=== PATIENT | female | born 1990 | race Caucasian/White ===

== ENCOUNTER 2020-01-30 11:14 | Emergency (ER) | payer OTHER, SELFPAY ==
[2020-01-30 11:30] VITALS: BP 117/72; PULSE 77; RESP 16; TEMP 37; O2SAT 98; BMI 43.4
--- NOTE | 2020-01-30 11:55 | ED.ALLEREA ---
HPI - Allergic Reaction General Chief complaint: Allergic Reaction Stated complaint: Hives Time Seen by Provider: 01/30/20 11:55 Source: patient Mode of arrival: ambulatory Limitations: no limitations History of Present Illness HPI narrative: 29 y/o female presenting with intermittent hives all over her body for the last 7-10 days. She has been taking benadryl with good effect. She states it is worse after a hot shower and worse after she wears certain clothing. She denies any respiratory symptoms. She took Benadryl for hives on her chest this morning and arrives today with complete resolution. complaint: hives Onset (ago): hour(s) Exposure: unknown Symptoms: rash and itching Severity: moderate Treatment prior to arrival: benadryl Previous Allergic Reaction History: other (history of hives in the past ) Related Data Previous Rx's Medication Instructions Recorded famotidine [Pepcid] 20 mg PO DAILY #30 tab 01/30/20 loratadine [Claritin] 10 mg PO DAILY #30 tab 01/30/20 Allergies Allergy/AdvReac Type Severity Reaction Status Date / Time cat dander [CAT DANDER] Allergy Intermediate ITCHY Unverified 12/14/19 15:51 WATERY EYES dog dander [DOGS] Allergy Intermediate ITCHY Unverified 12/14/19 15:51 WATERY EYES GRASS Allergy Intermediate ITCHY, Uncoded 12/14/19 15:51 HIVES Review of Systems Review of Systems: Constitutional: No Fever, No Chills ENT/Mouth: No sore throat, No Rhinorrhea, No Swallowing Difficulty Eyes: No Eye Pain, No Swelling, No Redness Cardiovascular: No Chest Pain, No SOB, No Orthopnea, No Edema Respiratory: No Cough, No Sputum, No Wheezing, No dyspnea Gastrointestinal: No Nausea, No Vomiting, No Diarrhea, No abdominal Pain Genitourinary: No Dysuria, No Urinary Frequency, No Hematuria Musculoskeletal: No joint pain, No Myalgias Skin: No Skin Lesions, + rash Neuro: No Weakness, No Numbness, No Dizziness, No Headache Psych: + Anxiety/Panic, No Depression Heme/Lymph: No Bruising, No Lymphadenopathy Endocrine: No Polyuria, No Polydipsia PMFSH Past Medical History Attestation statement: The following information was validated with the patient. Medical History Asthma H/O eye muscle disorder Post depression Surgical History (Updated 01/30/20 @ 11:35 by Shellie Armendariz) Hx of breast reduction, elective Hx of tonsillectomy Social History Social History Advance Directives: No Advance Directives Information Provided: No Physical Exam Vital Signs: Vital Signs: Vital Signs Temp Pulse Resp BP Pulse Ox 01/30/20 11:30 98.6 F 77 16 117/72 98 Body Mass Index 43.4 Appearance: Alert. Oriented X3. No acute distress. Eyes: Pupils equal, round and reactive to light. ENT: Pharynx normal. Lips and mouth normal. Neck: Normal inspection. Neck supple. CVS: Normal heart rate and rhythm. Pulses normal. Respiratory: No respiratory distress. Breath sounds normal. Abdomen: Soft and nontender. +BS x4 Skin: Skin warm and dry. Normal skin color. Normal skin turgor. No rashes. No hives. Extremities: No lower extremity edema. Neuro: Oriented X 3. No motor deficit. No sensory deficit. Course Course Course Narrative: completely resolved hives on arrival. she is taking benadryl with good effect. no angioedema or SOB. she has an appointment with information assurance officer and director of federal sales. will empirically start treatment for chronic urticaria with H2 virgie and 2nd generation antihystamine. patient agrees with plan and will f/u with her specialist. warning signs discussed to warrant ER evaluation. MDM - Allergic Reaction Differential Diagnosis Differential diagnosis: Likely anaphylaxis, allergic reaction, angioedema, contact dermatitis, adverse reaction to drug, viral enanthem and urticaria Critical Care Time Critical Care Time Critical Care Time: No Discharge Plan Discharge Clinical Impression: Urticaria Patient Disposition: Home, Self-Care Instructions: Urticaria (ED) Additional Instructions: Continue taking Benadryl as needed for rash and itching. Do not use any soaps, detergents, or lotions with perfume or scent. Recommend hypoallergic formulas. Follow up with your Raftsman and Cardiac Catheterization Technician as scheduled. If you develop shortness of breath, wheezing, difficulty breathing or swelling of your tongue or mouth call 911 or come back to the ER for further evaluation. Prescriptions: New loratadine [Claritin] 10 mg tablet 10 mg PO DAILY Qty: 30 RF: 0 famotidine [Pepcid] 20 mg tablet 20 mg PO DAILY Qty: 30 RF: 0
== END 2020-01-30 12:05 | disposition home or self-care (01) ==
PROVIDERS: Emergency Provider Emergency Medicine; PCP Nurse Practitioner
DX: L50.9 Urticaria, unspecified (principal); Z79.899 Other long term (current) drug therapy
CPT/HCPCS: 99283

== ENCOUNTER 2021-06-07 10:11 | Emergency (ER) | payer OTHER, SELFPAY ==
--- NOTE | ~2021-06-07 | XR_ITS ---
EXAMINATION: XR LUMBOSACRAL SPINE CLINICAL INFORMATION: Lifting pain. COMPARISON: CT abdomen pelvis 10/18/2014. TECHNIQUE: Three views of the lumbosacral spine. FINDINGS: 5 lumbar type vertebral bodies are identified. Vertebral body height, spacing and alignment are normal in appearance. Mild intervertebral disc space narrowing and endplate discogenic sclerotic changes are present adjacent to the T11-T12 intervertebral disc space. The sacroiliac joints are normal in appearance. Scattered bowel gas noted in nondistended small and large bowel segments. XR/XR lumbar spine 2-3V IMPRESSION: *No acute abnormalities identified. *Chronic spondylosis at T11-T12 characterized by intervertebral disc space narrowing and endplate discogenic changes.
[2021-06-07 10:26] VITALS: BP 110/60; BP 144/88; PULSE 69; PULSE 88; RESP 16; TEMP 36.9; O2SAT 98; BMI 41.7
[2021-06-07] MEDS: Ketorolac Tromethamine 30 MG/ML VIAL IM (10:40)
[2021-06-07] MEDS: Acetaminophen 325 MG TABLET 650 MG PO (10:42)
[2021-06-07] MEDS: Cyclobenzaprine HCl 5 MG TABLET PO (10:42)
[2021-06-07] MEDS: oxyCODONE HCl Immed Release 5 MG TABLET PO (10:42)
[2021-06-07] MEDS: Lidocaine 4 % Patch ADH..PATCH 1 PATCH TRANSDERMA (11:49)
--- NOTE | 2021-06-07 12:28 | ED_ITS ---
HPI - General Adult General Chief complaint: Back Pain/Injury Stated complaint: BACK PAIN S/P LIFTING HEAVY OBJECT T-1 Time Seen by Provider: 06/07/21 10:17 Source: patient Mode of arrival: ambulatory History of Present Illness HPI narrative: 30-year-old female with a past medical history of asthma, presenting to the ED complaining of left-sided low back pain radiating down left lower extremity s/p lifting a package last night. Denies direct injury/trauma or fall, was ambulatory after incident however pain worsened this morning with difficulty ambulating from pain. States she tried to urinate this morning however could not pee secondary to the pain. Denies numbness, tingling, urinary incontinence/retention, weakness Related Data Previous Rx's Medication Instructions Recorded famotidine 20 mg tablet (Pepcid) 20 mg PO DAILY #30 tab 01/30/20 loratadine 10 mg tablet (Claritin) 10 mg PO DAILY #30 tab 01/30/20 cyclobenzaprine 5 mg tablet 5 mg PO Q8H PRN 5 Days #14 tab 06/07/21 hydrocodone 5 mg-acetaminophen 325 1 tab PO Q8H PRN 3 Days #7 tab 06/07/21 mg tablet lidocaine 5 % topical patch 1 patch TOPICAL DAILY PRN #30 ea 06/07/21 (Lidoderm) MDD remove after 12 hours naproxen 500 mg tablet 500 mg PO BID PRN 10 Days #20 tab 06/07/21 Allergies Allergy/AdvReac Type Severity Reaction Status Date / Time cat dander [CAT DANDER] Allergy Intermediate ITCHY Unverified 09/17/20 07:41 WATERY EYES dog dander [DOGS] Allergy Intermediate ITCHY Unverified 09/17/20 07:41 WATERY EYES GRASS Allergy Intermediate ITCHY, Uncoded 09/17/20 07:41 HIVES Review of Systems Review of Systems: Constitutional:No Fever, No Chills ENT/Mouth: No Ear Pain, No Nasal Congestion, No sore throat Cardiovascular: No Chest Pain, No SOB Respiratory: No Cough, No Sputum, No Wheezing Gastrointestinal: No Nausea, No Vomiting, No Diarrhea, No Constipation, No Abdominal pain Genitourinary: No Dysuria, No Hematuria, No Urinary Incontinence/retention, No Urgency, No Flank Pain Musculoskeletal: + back pain, No Myalgias, No Joint Swelling Skin: No Skin Lesions, No rash Neuro: No Weakness, No Numbness, No Paresthesias Yes all other systems are reviewed and are negative Neurologic: Denies Sensory deficit (Neuro) [facility] Past Medical History Attestation statement: The following information was validated with the patient. Medical History Asthma H/O eye muscle disorder Post depression Surgical History Hx of breast reduction, elective Hx of tonsillectomy Social History Social History Advance Directives: No Advance Directives Information Provided: No Patient : No Physical Exam ED Vital Signs: Vital Signs - 24 hr 06/07/21 10:26 Temperature 98.4 F Pulse Rate 69 Respiratory Rate 16 Blood Pressure 110/60 Pulse Oximetry 98 BMI result Body Mass Index 41.7 Const Other: in pain General: cooperative and healthy appearing Orientation/consciousness: patient oriented x3 Limitations: no limitations HENMT Head: Yes normal to inspection Ears: hearing grossly normal bilaterally General nose exam: Normal external nose present Face and sinus: Yes normal facial exam Eyes General: appearance normal, both eyes and all related structures EOM: EOMs intact bilaterally Neck Other: No midline cervical spinous tenderness/double for deformity Neck: Yes normal visual inspection Resp Effort & Inspection: normal respiratory effort and no respiratory distress Cardio Rate: regular rate Heart sounds: S1 normal heart sound present and S2 normal heart sound present Peripheral pulses: dorsalis pedis present GI Inspection: Yes normal to inspection Palpation (GI): Soft to palpation, nontender and no guarding General: Yes no CVA tenderness Back/Spine/Pelvis Other: No midline thoracic/lumbar spinous tenderness/step-off or deformity. + left- sided paraspinal and left buttock tenderness to palpation reproducing subjective complaint. No erythema/ecchymosis Back: no CVA tenderness Skin Rashes: no rashes Wounds: no wounds Neuro Other: Strength intact throughout. No saddle anesthesia. General: patient oriented x3, tone normal, moves all extremities and no focal motor deficits Motor exam (neuro): 5/5 motor strength present throughout Sensory Exam: No Sensory deficit (Neuro) Extrem General: Yes normal to inspection Course Course Course Narrative: XR lumbar spine 2-3V IMPRESSION: *No acute abnormalities identified. *Chronic spondylosis at T11-T12 characterized by intervertebral disc space narrowing and endplate discogenic changes 1229--results discussed with patient. Reports symptomatic improvement after medications given in the ED. Obtain bladder scan and ambulate prior to discharge -pre void bladder scan with 407mL -postvoid residual with 3mL. Patient ambulated to the bathroom with steady slow gait. Discussed worrisome signs and symptoms and strict return precautions and need close follow-up with PCP Medical Decision Making MDM Narrative Medical decision making narrative: 30-year-old female with a past medical history of asthma, presenting to the ED complaining of left-sided low back pain radiating down left lower extremity s/p lifting a package last night. On exam vital signs stable, appears in pain, tearful, no midline spinous tenderness throughout, no red flag symptoms, strength intact throughout. Concern for MSK strain/muscle spasming vs sciatica. Low concern for cauda equina/cord compression or fracture Plan: X-rays, pain control Medical Records Medical records reviewed: Yes I reviewed the patient's medical records. Lab Data Lab results reviewed: Yes I reviewed the patient's lab results. Discharge Plan Discharge Clinical Impression: Strain of lumbar region, Lumbar radiculopathy Patient Disposition: Home, Self-Care Instructions: Acute Low Back Pain (ED), Lower Back Exercises (ED) Additional Instructions: Your x-rays show mild joint space narrowing at T11 and T12, no fractures. Your pain is likely musculoskeletal Flexeril is a muscle relaxer, take at night as it makes you drowsy, do not drive, drink alcohol, or operate machinery while taking it Naproxen as an anti-inflammatory / pain medication, take with food Lidoderm patches are numbing patches, apply to painful area Sweet Water is no opiate pain medication, take only when pain is severe for the next 3 days. Be aware Sweet Water has Tylenol mixed in, do not exceed 4 g of Tylenol in 1 day In addition take Tylenol at home If symptoms persist or worsen, pain becomes unbearable, you developed urinary retention or incontinence, or weakness return to the ED Prescriptions: New hydrocodone-acetaminophen 5-325 mg tablet 1 tab PO Q8H PRN (Reason: pain, severe) 3 Days Qty: 7 0RF cyclobenzaprine 5 mg tablet 5 mg PO Q8H PRN (Reason: pain (scale score 7-10)) 5 Days Qty: 14 0RF lidocaine [Lidoderm] 5 % adhesive patch,medicated 1 patch topical DAILY MDD remove after 12 hours PRN (Reason: pain) Qty: 30 0RF Rx Instructions: leave on most painful area for up to 12 hrs naproxen 500 mg tablet 500 mg PO BID PRN (Reason: pain) 10 Days Qty: 20 0RF No Action loratadine [Claritin] 10 mg tablet 10 mg PO DAILY Qty: 30 0RF famotidine [Pepcid] 20 mg tablet 20 mg PO DAILY Qty: 30 0RF Referrals: Teena Donovan NP [Primary Care Provider] - 3 days
== END 2021-06-07 14:10 | disposition home or self-care (01) ==
PROVIDERS: Emergency Provider Emergency Medicine; PCP Nurse Practitioner
DX: S39.012A Strain of muscle, fascia and tendon of lower back, initial encounter (principal); X50.0XXA Overexertion from strenuous movement or load, initial encounter; M54.16 Radiculopathy, lumbar region; Y93.89 Activity, other specified; Y92.019 Unspecified place in single-family (private) house as the place of occurrence of the external cause; Y99.9 Unspecified external cause status
CPT/HCPCS: 72100; 96372; 99283; 99284; J1885

== ENCOUNTER 2021-08-06 09:31 | Emergency (ER) | payer MEDICAID, SELFPAY ==
--- NOTE | ~2021-08-06 | XR_ITS ---
EXAMINATION: XR KNEE, RIGHT CLINICAL INFORMATION: Right knee pain. COMPARISON: None TECHNIQUE: Four views of the right knee. FINDINGS: Bones and soft tissues are normal. No fracture or joint effusion. Alignment is anatomic. Joint spaces are well maintained. No abnormal soft tissue calcification. XR/XR knee RT 4V IMPRESSION: Unremarkable right knee.
[2021-08-06 10:02] VITALS: BP 129/63; PULSE 78; RESP 16; TEMP 36; O2SAT 99; BMI 40.8
--- NOTE | 2021-08-06 11:58 | ED.SKABFB ---
HPI - Skin/Abscess/Foreign Bdy General Chief complaint: General Medical Stated complaint: boil inner thigh r knee pain Time Seen by Provider: 08/06/21 11:16 Source: patient Mode of arrival: ambulatory Limitations: no limitations History of Present Illness HPI narrative: Patient presents to the emergency department for evaluation of a boil to her left upper inner thigh. she reports first noting this about 1 week ago after taking a spin class, but the area has become increasingly painful, swollen, and red. Denies any active drainage from this area. Denies any fevers, shakes and chills, dysuria, urinary frequency, abnormal vaginal discharge, concerns for sexually transmitted infections, constipation, diarrhea. In addition, she reports that she is experiencing mild right knee discomfort since taking that spin class. Denies any locking, popping, or giving out of her knee. Denies any redness, swelling, warmth. She is able to walk and bear weight, has an elastic brace in place Which helps with her discomfort. Related Data Previous Rx's Medication Instructions Recorded famotidine 20 mg tablet (Pepcid) 20 mg PO DAILY #30 tab 01/30/20 loratadine 10 mg tablet (Claritin) 10 mg PO DAILY #30 tab 01/30/20 cyclobenzaprine 5 mg tablet 5 mg PO Q8H PRN 5 Days #14 tab 06/07/21 hydrocodone 5 mg-acetaminophen 325 1 tab PO Q8H PRN 3 Days #7 tab 06/07/21 mg tablet lidocaine 5 % topical patch 1 patch TOPICAL DAILY PRN #30 ea 06/07/21 (Lidoderm) MDD remove after 12 hours naproxen 500 mg tablet 500 mg PO BID PRN 10 Days #20 tab 06/07/21 cephalexin 500 mg capsule 500 mg PO QID 7 Days #28 cap 08/06/21 doxycycline hyclate 100 mg tablet 100 mg PO BID 7 Days #14 tab 08/06/21 Allergies Allergy/AdvReac Type Severity Reaction Status Date / Time cat dander [CAT DANDER] Allergy Intermediate ITCHY Verified 08/06/21 10:01 WATERY EYES dog dander [DOGS] Allergy Intermediate ITCHY Verified 08/06/21 10:01 WATERY EYES GRASS Allergy Intermediate ITCHY, Uncoded 09/17/20 07:41 HIVES Review of Systems Review of Systems: Constitutional: No weight loss, fever, chills, weakness or fatigue. Skin: Positive cyst Cardiovascular: No chest pain, chest pressure or chest discomfort. No palpitations Respiratory: No shortness of breath, cough or sputum production. Gastrointestinal: No anorexia, nausea, vomiting or diarrhea. No abdominal pain Genitourinary: No burning micturition. Musculoskeletal: Positive knee pain Yes all other systems are reviewed and are negative [facility] Past Medical History Medical History Asthma H/O eye muscle disorder Post depression Surgical History Hx of breast reduction, elective Hx of tonsillectomy Social History Social History Advance Directives: No Advance Directives Information Provided: Yes Physical Exam Vital Signs: Vital Signs: Last Vital Signs Temp 96.8 F 08/06/21 10:02 Pulse 78 08/06/21 10:02 Resp 16 08/06/21 10:02 BP 129/63 08/06/21 10:02 Pulse Ox 99 08/06/21 10:02 BMI result Body Mass Index 40.8 Vital signs have been reviewed as normal and appeared to be correct. Blood pressure normal.? Heart rate normal.? Respiration rate normal. Temperature normal.? Oxygen saturation normal. Appearance: Alert.?Oriented to person, place and time. No acute distress.?Normal affect. Eyes: Pupils equal, round and reactive to light.? ENT: Pharynx normal.?? Neck: Normal inspection.? Neck supple.?? CVS: Heart sounds normal. Normal heart rate and rhythm.? Pulses normal.?? Respiratory: No respiratory distress.? Lung sounds clear to auscultation bilaterally?? Abdomen: Soft and non-tender. Skin: Right perineum with palpable abscess and surrounding erythema. Skin warm and dry.? Normal skin color.? Extremities: Right knee without erythema, warmth, swelling/effusion. Full AROM. Palpable DP/PT pulse bilaterally. Anterior drawer test negative. Posterior drawer test negative. Valgus stress test negative. Varus stress test negative. No laxity. No crepitus. No calf ttp? Neuro: Moves all extremities spontaneously. Sensation intact bilaterally. Motor deficit. Ambulates with normal steady gait. Course Course Course Narrative: Patient is a 30-year-old female with past medical history of GERD, allergic rhinitis. Presenting for evaluation of a abscess to the left buttock and right knee pain. Right perineum inferior to the labia majora and lateral to the vaginal canal/ buttock is a palpable fluctuance consistent with abscess, and mild surrounding erythema. discussed plan of care with patient for incision and drainage. She is agreeable. Not consistent with perirectal / perianal abscess, or fourniers gangrene. X-ray obtained from triage of the right knee is unremarkable, no fracture or joint effusion. On physical exam not consistent with cellulitis, sepric arthritis, or dislocation. No laxity or crepitus. Advised patient cannot completely exclude ligamentous or meniscus injury as x-ray imaging is not due for modality for all other. Advised to continue wearing the compression brace, rest, ice, and elevation, or dense of aggravating activity, Tylenol or ibuprofen as needed for pain. If her knee pain persists, advised to follow-up with her primary care provider for further evaluation. Reevaluation(s) Reevaluation #1: Performed incision and drainage under aseptic technique, patient tolerated procedure well, small amount of purulent drainage, and blood removed. Patient tolerated procedure well. Discussed plan of care for discharge home, with doxycycline and Keflex. Advised to follow-up with primary care provider in 1 week. Discussed reasons to return back to the emergency department. All questions were answered. Time: 13:08 MDM - Skin/Abscess/Foreign Bdy Medical Records Attestation: I reviewed the patient's medical records. Imaging Data knee XR: Radiologist's impression: FINDINGS: Bones and soft tissues are normal. No fracture or joint effusion. Alignment is anatomic. Joint spaces are well maintained. No abnormal soft tissue calcification.? XR/XR knee RT 4V IMPRESSION: Unremarkable right knee. Procedures Abscess I/D Site: other ( Perineum inferior to labia majora, lateral to vagina) Side (if applicable): right Local Anesthetic: lidocaine 1% Amount of anesthesia used (mL): 10 Technique: incised with blade Irrigation: Yes Packing used?: none Discharge Plan Discharge Clinical Impression: Abscess, Acute knee pain Patient Disposition: Home, Self-Care Instructions: Abscess (ED), Incision and Drainage (ED) Additional Instructions: you have been given a course of antibiotics, please complete both antibiotics as prescribed. Return to the emergency department any new or worsening symptoms or concerns. If you develop fevers, shaking chills, severe worsening pain, swelling, redness please return back to the emergency department for evaluation. May continue to have some drainage over the next few days, this is expected. follow-up with her primary care provider within 1 week Regarding your knee, be sure to rest, apply ice, use compression brace, and elevation when possible. Tylenol and ibuprofen may be used as needed for pain. Avoid aggravating factors. You may follow-up with your primary care provider if the pain persists. Prescriptions: New cephalexin 500 mg capsule 500 mg PO QID 7 Days Qty: 28 0RF doxycycline hyclate 100 mg tablet 100 mg PO BID 7 Days Qty: 14 0RF No Action loratadine [Claritin] 10 mg tablet 10 mg PO DAILY Qty: 30 0RF famotidine [Pepcid] 20 mg tablet 20 mg PO DAILY Qty: 30 0RF hydrocodone-acetaminophen 5-325 mg tablet 1 tab PO Q8H PRN (Reason: pain, severe) 3 Days Qty: 7 0RF cyclobenzaprine 5 mg tablet 5 mg PO Q8H PRN (Reason: pain (scale score 7-10)) 5 Days Qty: 14 0RF lidocaine [Lidoderm] 5 % adhesive patch,medicated 1 patch topical DAILY MDD remove after 12 hours PRN (Reason: pain) Qty: 30 0RF Rx Instructions: leave on most painful area for up to 12 hrs naproxen 500 mg tablet 500 mg PO BID PRN (Reason: pain) 10 Days Qty: 20 0RF Interventions: ED Discharge Assessment Last Done: 08/06/21 13:34 Discharge Date/Time: 08/06/21 13:36
[2021-08-06] MEDS: Lidocaine HCl 2 % MPF 5 ML VIAL SUBCUT ×2 (12:01)
== END 2021-08-06 13:36 | disposition home or self-care (01) ==
PROVIDERS: Emergency Provider Emergency Medicine; PCP Nurse Practitioner
DX: L02.415 Cutaneous abscess of right lower limb (principal); K21.9 Gastro-esophageal reflux disease without esophagitis
CPT/HCPCS: 10060; 73564; 99283; 99284

== ENCOUNTER 2021-09-30 10:24 | Emergency (ER) | payer MEDICAID, SELFPAY ==
[2021-09-30 11:31] VITALS: BP 109/41; PULSE 71; RESP 16; TEMP 36.4; O2SAT 98; BMI 40.2
--- NOTE | 2021-09-30 11:50 | ED.URI ---
HPI - URI/Sore Throat General Chief Complaint: General Medical Stated Complaint: throat pain, headache Time Seen by Provider: 09/30/21 11:17 Source: patient Mode of arrival: ambulatory Limitations: no limitations History of Present Illness MD elicited complaint: cough, sore throat and rhinorrhea Pertinent past history: other (tonsillectomy) Onset (ago): day(s) (2) Consistency: progressively worsening Severity: moderate Description of mucous: clear Able to tolerate fluids by mouth: Yes Exacerbating factors: swallowing Relieving factors: nothing Associated symptoms: headache, rhinorrhea, sore throat and cough Treatments prior to arrival: none Related Data Previous Rx's Medication Instructions Recorded famotidine 20 mg tablet (Pepcid) 20 mg PO DAILY #30 tabs 01/30/20 loratadine 10 mg tablet (Claritin) 10 mg PO DAILY #30 tabs 01/30/20 cyclobenzaprine 5 mg tablet 5 mg PO Q8H PRN pain (scale score 06/07/21 7-10) 5 days #14 tabs hydrocodone 5 mg-acetaminophen 325 1 tab PO Q8H PRN pain, severe 3 06/07/21 mg tablet days #7 tabs lidocaine 5 % topical patch 1 patch topical DAILY PRN pain #30 06/07/21 (Lidoderm) ea naproxen 500 mg tablet 500 mg PO BID PRN pain 10 days #20 06/07/21 tabs cephalexin 500 mg capsule 500 mg PO QID 7 days #28 caps 08/06/21 doxycycline hyclate 100 mg tablet 100 mg PO BID 7 days #14 tabs 08/06/21 amoxicillin 500 mg capsule 500 mg PO BID 7 days #14 caps 09/30/21 Allergies Allergy/AdvReac Type Severity Reaction Status Date / Time cat dander [CAT DANDER] Allergy Intermediate ITCHY Verified 09/30/21 11:36 WATERY EYES dog dander [DOGS] Allergy Intermediate ITCHY Verified 09/30/21 11:36 WATERY EYES GRASS Allergy Intermediate ITCHY, Uncoded 09/30/21 11:36 HIVES Review of Systems Review of Systems: Constitutional : no Fever, no Chills ENT/Mouth : positive sore throat, positive runny nose Eyes: No Discharge Cardiovascular : No Chest Pain, No SOB Respiratory : pos Cough, No Sputum Gastrointestinal : No Nausea, No Vomiting, No Diarrhea Genitourinary : No Dysuria, No Urinary Frequency Musculoskeletal : positive Myalgia Skin : No rash Neuro : pos Headache Heme: pos lymphadenopathy PMFSH Past Medical History Medical History Asthma H/O eye muscle disorder Post depression Surgical History Hx of breast reduction, elective Hx of tonsillectomy Social History Social History (Updated 09/30/21 @ 12:01 by Angeles Trejo DO) Patient Tobacco Use Status: Never used Tobacco Advance Directives: No Advance Directives Information Provided: Yes Physical Exam Vital Signs: Vital Signs: Last Vital Signs Temp 97.6 F 09/30/21 11:31 Pulse 71 09/30/21 11:31 Resp 16 09/30/21 11:31 BP 109/41 L 09/30/21 11:31 Pulse Ox 98 09/30/21 11:31 O2 Del Method 09/30/21 11:31 BMI result Body Mass Index 40.2 Appearance: Alert. Oriented X3. No acute distress. Eyes: Pupils equal, round and reactive to light. ENT: Pharynx mild erythema, no tonsils, no white patches, no mass Neck: Neck supple, bilateral small anterior cervical lymphadenopathy CVS: Normal heart rate and rhythm. Pulses normal. Respiratory: No respiratory distress. Breath sounds normal. Abdomen: Soft and non-tender. Skin: Skin warm and dry. Normal skin color. Extremities: No lower extremity edema. Neuro: Oriented X 3. No motor deficit. No sensory deficit. MDM - URI/Sore Throat MDM Narrative Medical decision making narrative: 31 yo female with hx of asthma reports cough, rhinorrhea, sore throat for 2 days, hx of tonsillectomy but states this feels like sore throat to her. At this time not toxic, no sign of mass in the airway. Will obtain swabs for COVID/flu/strep. Likely start on treatment for pharyngitis. Lab Data Labs: Lab Results 09/30/21 09/30/21 09/30/21 Range/Units 11:38 11:38 11:38 COVID-19 ([facility]) Negative (Negative) COVID-19 Clin Com See Note Influenza Type A ([facility]INA) Negative (Negative) Influenza Type B (BRIAN) Negative (Negative) Influenza A & B Note See Note S. pyogenes GrpA BRIAN Negative (Negative) Discharge Plan Discharge Clinical Impression: Pharyngitis Qualifiers: Pharyngitis/tonsillitis etiology: unspecified etiology Qualified Code(s): J02.9 - Acute pharyngitis, unspecified Patient Disposition: Home, Self-Care Instructions: Pharyngitis (ED) Additional Instructions: return to ED for any worsening symptoms or concerns negative for covid, flu, strep Prescriptions: New amoxicillin 500 mg capsule 500 mg PO BID 7 Days Qty: 14 0RF No Action loratadine [Claritin] 10 mg tablet 10 mg PO DAILY Qty: 30 0RF famotidine [Pepcid] 20 mg tablet 20 mg PO DAILY Qty: 30 0RF hydrocodone-acetaminophen 5-325 mg tablet 1 tab PO Q8H PRN (Reason: pain, severe) 3 Days Qty: 7 0RF cyclobenzaprine 5 mg tablet 5 mg PO Q8H PRN (Reason: pain (scale score 7-10)) 5 Days Qty: 14 0RF lidocaine [Lidoderm] 5 % adhesive patch,medicated 1 patch topical DAILY MDD remove after 12 hours PRN (Reason: pain) Qty: 30 0RF Rx Instructions: leave on most painful area for up to 12 hrs naproxen 500 mg tablet 500 mg PO BID PRN (Reason: pain) 10 Days Qty: 20 0RF cephalexin 500 mg capsule 500 mg PO QID 7 Days Qty: 28 0RF doxycycline hyclate 100 mg tablet 100 mg PO BID 7 Days Qty: 14 0RF Referrals: Physician,Unknown J [Primary Care Provider] - (PCP if not better in 2 days) Stand Alone Forms: Work/School Release
[2021-09-30 12:02] LABS: Strep A Nucleic Acid Negative (Negative)
[2021-09-30 12:06] LABS: COVID-19 Test Negative (Negative); IDNOW Serial# 08D9AD1C
[2021-09-30 12:13] LABS: IDNOW Serial# 16C4AD1C; Influenza A Negative (Negative); Influenza B2 Negative (Negative)
== END 2021-09-30 12:39 | disposition home or self-care (01) ==
PROVIDERS: Emergency Provider Emergency Medicine
DX: J02.9 Acute pharyngitis, unspecified (principal); R51.9 Headache, unspecified; Z79.899 Other long term (current) drug therapy; Z20.822 Contact with and (suspected) exposure to COVID-19
CPT/HCPCS: 87502; 87635; 87651; 99283

== ENCOUNTER 2021-12-01 09:03 | Emergency (ER) | payer MEDICAID, SELFPAY ==
[2021-12-01 09:05] VITALS: BP 106/58; PULSE 88; RESP 16; TEMP 36.8; O2SAT 99; BMI 40.2
[2021-12-01] MEDS: Erythromycin Base 0.5% Oph Oin 1 GM TUBE 1 CM EYE-RIGHT (09:32)
[2021-12-01] MEDS: Tetracaine HCl/PF 0.5% Oph Sol 4 ML DROPS 3 DROP EYE-RIGHT (09:32)
[2021-12-01] MEDS: Fluorescein Sodium STRIP 1 STRIP EYE-RIGHT (09:32)
--- NOTE | 2021-12-01 09:33 | ED_ITS ---
HPI - Eye Problem General Chief complaint: Eye Problems Stated complaint: Crazy glue splashed in eye Time Seen by Provider: 12/01/21 09:11 Source: patient Mode of arrival: ambulatory Limitations: no limitations History of Present Illness HPI Narrative: Patient presents emergency department for evaluation of glue to the right eye. She states last night while attempting to apply crazy glue to her nail the glue squirted out of the container, and she believes some of the glue may have gotten into her right eye. Initially she felt this was fine. However today she awoke in is having pain to the right lateral corner of her eye, and feels as though something might be scratching her eye. Her eye is very watery. She attempted to rinse her eye, so the eye, use oil to remove the potential glue but has been unable to do so successfully. Denies vision changes. Related Data Previous Rx's Medication Instructions Recorded famotidine 20 mg tablet (Pepcid) 20 mg PO DAILY #30 tabs 01/30/20 loratadine 10 mg tablet (Claritin) 10 mg PO DAILY #30 tabs 01/30/20 cyclobenzaprine 5 mg tablet 5 mg PO Q8H PRN pain (scale score 06/07/21 7-10) 5 days #14 tabs hydrocodone 5 mg-acetaminophen 325 1 tab PO Q8H PRN pain, severe 3 06/07/21 mg tablet days #7 tabs lidocaine 5 % topical patch 1 patch topical DAILY PRN pain #30 06/07/21 (Lidoderm) ea naproxen 500 mg tablet 500 mg PO BID PRN pain 10 days #20 06/07/21 tabs cephalexin 500 mg capsule 500 mg PO QID 7 days #28 caps 08/06/21 doxycycline hyclate 100 mg tablet 100 mg PO BID 7 days #14 tabs 08/06/21 amoxicillin 500 mg capsule 500 mg PO BID 7 days #14 caps 09/30/21 tobramycin 0.3 % eye drops 2 drp ophthalmic-Right Q4H 5 days 12/01/21 #5 mL Allergies Allergy/AdvReac Type Severity Reaction Status Date / Time cat dander [CAT DANDER] Allergy Intermediate ITCHY Verified 09/30/21 11:36 WATERY EYES dog dander [DOGS] Allergy Intermediate ITCHY Verified 09/30/21 11:36 WATERY EYES GRASS Allergy Intermediate ITCHY, Uncoded 09/30/21 11:36 HIVES Review of Systems Review of Systems: Eye: positive redness. Positive watery drainage. Positive pain. Yes all other systems are reviewed and are negative [facility] Past Medical History Attestation statement: The following information was validated with the patient. Source: old records reviewed Medical History Asthma H/O eye muscle disorder Post depression Surgical History Hx of breast reduction, elective Hx of tonsillectomy Social History Social History Patient Tobacco Use Status: Never used Tobacco Advance Directives: No Advance Directives Information Provided: No Physical Exam Vital Signs: Vital Signs: Last Vital Signs Temp 98.3 F 12/01/21 09:05 Pulse 88 12/01/21 09:05 Resp 16 12/01/21 09:05 BP 106/58 L 12/01/21 09:05 Pulse Ox 99 12/01/21 09:05 O2 Del Method 12/01/21 09:05 BMI result Body Mass Index 40.2 Appearance: Alert.?Oriented to person, place and time. No acute distress.?Normal affect. Eyes: Pupils equal, round and reactive to light.? EOMI. No nystagmus. Heart include visible to the right lower lash line towards lateral epicanthus. Sclera injected in this area. ENT: Pharynx normal.?? Neck: Normal inspection.? Neck supple.?? CVS: Heart sounds normal. Normal heart rate and rhythm.? Pulses normal.?? Respiratory: No respiratory distress.? Lung sounds clear to auscultation bilaterally?? Abdomen: Soft and non-tender.?? Skin: Skin warm and dry.? Normal skin color.? Extremities: No lower extremity edema.? Neuro: Moves all extremities spontaneously. Sensation intact bilaterally. No motor deficits Ambulates with normal steady gait. Course Course Course Narrative: patient is a 31-year-old female with past medical history of surgery to the bilateral eye muscles. Presents emergency department today for evaluation of potential glue to the right eyelid. Visible dried glue to the right lower eyelid, adhered to the base of the lashes. erythromycin ointment applied to the eyelid able to remove glue. She remains with a small spot of glue at the tip of the upper eyelashes at the lateral canthus, she would like to go home an attempt to soak this area, does not want this attempted to be removed at this time. The lash is lifted and not rubbing the surface of her eye. there is fluorescein uptake at the lateral canthus concerning for corneal abrasion, she is a contact lens wearer, will cover with tobramycin drops, she is already a patient of Dr. Leonardo, will contact their office tomorrow to arrange for follow-up. Reviewed worrisome signs and symptoms to return back to the emergency department for. All questions were answered, patient was discharged home. MDM - Eye Problem Medical Records Attestation: I reviewed the patient's medical records. Discharge Plan Discharge Clinical Impression: Corneal abrasion Patient Disposition: Home, Self-Care Instructions: Corneal Abrasion (ED) Additional Instructions: Please contact Dr. Leonardo to arrange for a follow-up visit as you were found to have a corneal abrasion. Tobramycin drops, 2 drops 4 times daily for 5 days. return to emergency department any new or worsening symptoms or concerns Prescriptions: New tobramycin 0.3 % drops 2 drp ophthalmic-Right Q4H 5 Days Qty: 5 0RF No Action loratadine [Claritin] 10 mg tablet 10 mg PO DAILY Qty: 30 0RF famotidine [Pepcid] 20 mg tablet 20 mg PO DAILY Qty: 30 0RF hydrocodone-acetaminophen 5-325 mg tablet 1 tab PO Q8H PRN (Reason: pain, severe) 3 Days Qty: 7 0RF cyclobenzaprine 5 mg tablet 5 mg PO Q8H PRN (Reason: pain (scale score 7-10)) 5 Days Qty: 14 0RF lidocaine [Lidoderm] 5 % adhesive patch,medicated 1 patch topical DAILY MDD remove after 12 hours PRN (Reason: pain) Qty: 30 0RF Rx Instructions: leave on most painful area for up to 12 hrs naproxen 500 mg tablet 500 mg PO BID PRN (Reason: pain) 10 Days Qty: 20 0RF cephalexin 500 mg capsule 500 mg PO QID 7 Days Qty: 28 0RF doxycycline hyclate 100 mg tablet 100 mg PO BID 7 Days Qty: 14 0RF amoxicillin 500 mg capsule 500 mg PO BID 7 Days Qty: 14 0RF Referrals: Elan Leonardo [Physician] -
== END 2021-12-01 10:52 | disposition home or self-care (01) ==
PROVIDERS: Emergency Provider Emergency Medicine
DX: S05.01XA Injury of conjunctiva and corneal abrasion without foreign body, right eye, initial encounter (principal); X58.XXXA Exposure to other specified factors, initial encounter; Y93.89 Activity, other specified; Y92.9 Unspecified place or not applicable; Y99.9 Unspecified external cause status
CPT/HCPCS: 99282; 99283

== ENCOUNTER 2021-12-06 12:28 | Emergency (ER) | payer MEDICAID, SELFPAY ==
[2021-12-06 12:52] VITALS: BP 116/59; PULSE 81; RESP 19; TEMP 36.6; O2SAT 98; BMI 39.9
--- NOTE | 2021-12-06 17:11 | ED_ITS ---
HPI - Eye Problem General Chief complaint: Eye Problems Stated complaint: allergic reaction Time Seen by Provider: 12/06/21 17:08 Source: patient Mode of arrival: ambulatory Limitations: no limitations History of Present Illness HPI Narrative: 31-year-old female who has previously healthy presents with left eye irritation and swelling to the eyelid and around the eye with itching and clear drainage from the eye for several hours. Patient denies any injury or trauma. No vision changes. She does occasionally use contact Related Data Previous Rx's Medication Instructions Recorded famotidine 20 mg tablet (Pepcid) 20 mg PO DAILY #30 tabs 01/30/20 loratadine 10 mg tablet (Claritin) 10 mg PO DAILY #30 tabs 01/30/20 cyclobenzaprine 5 mg tablet 5 mg PO Q8H PRN pain (scale score 06/07/21 7-10) 5 days #14 tabs hydrocodone 5 mg-acetaminophen 325 1 tab PO Q8H PRN pain, severe 3 06/07/21 mg tablet days #7 tabs lidocaine 5 % topical patch 1 patch topical DAILY PRN pain #30 06/07/21 (Lidoderm) ea naproxen 500 mg tablet 500 mg PO BID PRN pain 10 days #20 06/07/21 tabs cephalexin 500 mg capsule 500 mg PO QID 7 days #28 caps 08/06/21 doxycycline hyclate 100 mg tablet 100 mg PO BID 7 days #14 tabs 08/06/21 amoxicillin 500 mg capsule 500 mg PO BID 7 days #14 caps 09/30/21 tobramycin 0.3 % eye drops 2 drp ophthalmic-Right Q4H 5 days 12/01/21 #5 mL olopatadine 0.2 % eye drops 1 drp ophthalmic (eye) DAILY PRN 12/06/21 (Pataday Once Daily Relief) itching #2.5 mL Allergies Allergy/AdvReac Type Severity Reaction Status Date / Time cat dander [CAT DANDER] Allergy Intermediate ITCHY Verified 09/30/21 11:36 WATERY EYES dog dander [DOGS] Allergy Intermediate ITCHY Verified 09/30/21 11:36 WATERY EYES GRASS Allergy Intermediate ITCHY, Uncoded 09/30/21 11:36 HIVES Review of Systems Review of Systems: Yes all other systems are reviewed and are negative Constitutional: Constitutional: Reports no additional constitutional complai nts, Denies body ache(s), Denies chills, Denies fever(s), Denies headache(s) and Denies weakness Eyes: Eyes: Reports no additional eye complaints, Denies blurry vision, Denies change in vision, Denies diplopia, Reports eye discharge, Reports irritation, Reports itchy eyes, Denies loss of peripheral vision, Denies loss of vision, Denies eye pain, Reports requires corrective lenses and Denies photophobia ENT: Reports system reviewed and no additional complaints, except as documented, Denies dizziness, Denies headache(s), Denies nasal congestion, Denies nasal discharge and Denies neck pain Cardiovascular: Cardiovascular: Reports no additional cardiovascular complaints, Denies chest pain, Denies leg edema and Denies dyspnea Respiratory: Respiratory: Reports no additional respiratory complaints, Denies cough and Denies dyspnea Gastrointestinal: Gastrointestinal: Reports no additional gastrointestinal complaints, Denies abdominal pain, Denies diarrhea, Denies nausea and Denies vomiting Genitourinary: Genitourinary: Reports no additional female genitourinary complaints and Denies urinary incontinence Musculoskeletal: Musculoskeletal: Reports no additional musculoskeletal complaints, Denies back pain, Denies arthralgias, Denies joint swelling, Denies neck pain, Denies numbness and Denies tingling Integumentary/Breasts: Skin/Breast: Reports system reviewed and no additional complaints, except as docu and Denies rash Neurologic: Reports system reviewed and no additional complaints, except as documented, Denies Abnormal speech present, Denies dizziness, Denies headache(s), Denies loss of vision, Denies numbness, Denies tingling and Denies weakness Allergic/Immunologic: Allergic/Immunologic: Reports itchy eyes PMFSH Past Medical History Attestation statement: The following information was validated with the patient. Source: old records reviewed and nursing notes reviewed Medical History Asthma H/O eye muscle disorder Post depression Surgical History Hx of breast reduction, elective Hx of tonsillectomy Social History Social History Patient Tobacco Use Status: Never used Tobacco Advance Directives: No Advance Directives Information Provided: Yes Physical Exam Vital Signs: Vital Signs: Last Vital Signs Temp 98 F 12/06/21 12:52 Pulse 81 12/06/21 12:52 Resp 19 12/06/21 12:52 BP 116/59 L 12/06/21 12:52 Pulse Ox 98 12/06/21 12:52 O2 Del Method 12/06/21 12:52 BMI result Body Mass Index 39.9 Const: General: cooperative, healthy appearing, comfortable and no acute distress Orientation/consciousness: patient oriented x3 Limitations: no limitations HEENT: Head: Yes normal to inspection Ears: hearing grossly normal bilaterally General nose exam: Normal external nose present Face and sinus: Yes normal facial exam Mouth: Normal oral and palatal mucosa present Throat: Yes posterior oropharynx normal Eyes: General: appearance normal, both eyes and all related structures Visual Ruiz: normal visual ruiz by confrontation Alignment and Position: alignment normal Periorbital: periorbital findings normal Eyelids: Yes other (Left eyelid with slight swelling upper and lower) Conjunctivae: conjunctival abnormal (Slight injection left conjunctiva) Sclerae: scleral abnormal (Slight left pleural edema) Corneas: corneas normal and fluorescein used (No foreign body or abrasion) Pupils: Equal, round and reactive pupils present EOM: EOMs intact bilaterally Direct Ophthalmoscopy: normal light reflex, no photophobia and No photophobia Neck: Neck: Yes normal visual inspection Chest: Chest palpation & inspection: normal inspection of the chest Resp: Effort & Inspection: normal respiratory effort Auscultation: clear to auscultation bilaterally Cardio: Rate: regular rate Rhythm: regular rhythm Peripheral pulses: Peripheral pulses 2+ throughout GI: Inspection: Yes normal to inspection Palpation (GI): Soft to palpation and nontender Auscultation: normal bowel sounds Back/Spine/Pelvis: Thoracic/Lumbar Spine: thoracic and lumbar spine normal to inspection Skin: General skin exam: no rashes or lesions noted Neuro: General: patient oriented x3, no focal motor deficits and normal sensa tion to monofilament Cranial nerves: Yes Equal, round and reactive pupils present Cognition (Neuro): normal cognition Speech: No Abnormal speech present Gait exam (Neuro): Normal gait present Motor exam (neuro): 5/5 motor strength present throughout Extrem: General: Yes normal to inspection MDM - Eye Problem MDM Narrative Medical decision making narrative: 31-year-old female here with swelling to the left eyelid area and periorbital area with eye itching and tearing for several hours. Patient took Claritin prior to arrival which did seem to help with her symptoms. Her eye exam shows some mild swelling to the eyelid, conjunctival injection and scleral edema likely secondary to allergic conjunctivitis. No evidence of foreign body or abrasion. Patient can continue Benadryl, Claritin at home. Will add pad a day for comfort. Medical Records Attestation: I reviewed the patient's medical records. Lab Data Attestation: I reviewed the patient's lab results. Discharge Plan Discharge Clinical Impression: Acute allergic conjunctivitis Patient Disposition: Home, Self-Care Instructions: Conjunctivitis (ED) Additional Instructions: Benadryl as needed Continue Claritin Cool compresses to the eye Prescriptions: New olopatadine [Pataday Once Daily Relief] 0.2 % drops 1 drp ophthalmic (eye) DAILY PRN (Reason: itching) Qty: 2.5 0RF No Action loratadine [Claritin] 10 mg tablet 10 mg PO DAILY Qty: 30 0RF famotidine [Pepcid] 20 mg tablet 20 mg PO DAILY Qty: 30 0RF hydrocodone-acetaminophen 5-325 mg tablet 1 tab PO Q8H PRN (Reason: pain, severe) 3 Days Qty: 7 0RF cyclobenzaprine 5 mg tablet 5 mg PO Q8H PRN (Reason: pain (scale score 7-10)) 5 Days Qty: 14 0RF lidocaine [Lidoderm] 5 % adhesive patch,medicated 1 patch topical DAILY MDD remove after 12 hours PRN (Reason: pain) Qty: 30 0RF Rx Instructions: leave on most painful area for up to 12 hrs naproxen 500 mg tablet 500 mg PO BID PRN (Reason: pain) 10 Days Qty: 20 0RF cephalexin 500 mg capsule 500 mg PO QID 7 Days Qty: 28 0RF doxycycline hyclate 100 mg tablet 100 mg PO BID 7 Days Qty: 14 0RF amoxicillin 500 mg capsule 500 mg PO BID 7 Days Qty: 14 0RF tobramycin 0.3 % drops 2 drp ophthalmic-Right Q4H 5 Days Qty: 5 0RF Referrals: Physician,Unknown J [Primary Care Provider] - Interventions: ED Discharge Assessment Last Done: 12/06/21 17:31
[2021-12-06] MEDS: Fluorescein Sodium STRIP 1 STRIP EYE-LEFT (17:31)
[2021-12-06] MEDS: Tetracaine HCl/PF 0.5% Oph Sol 4 ML DROPS 1 DROP EYE-LEFT (17:31)
== END 2021-12-06 17:32 | disposition home or self-care (01) ==
PROVIDERS: Emergency Provider Internal Medicine
DX: H10.12 Acute atopic conjunctivitis, left eye (principal); H57.12 Ocular pain, left eye
CPT/HCPCS: 99283

== ENCOUNTER 2022-07-30 19:19 | Emergency (ER) | payer OTHER, SELFPAY ==
--- NOTE | ~2022-07-30 | CT_ITS ---
EXAMINATION: CT ABDOMEN AND PELVIS WITH CONTRAST CLINICAL INFORMATION: Pain. COMPARISON: CT abdomen pelvis 10/18/2014 TECHNIQUE: Multidetector volumetric images were obtained from the superior aspect of the liver through the pubic symphysis following administration 85 mL of Omnipaque 350 intravenous contrast. Sagittal and coronal reformatted images were obtained on the technologist's workstation. Oral contrast: No This CT examination was performed using dose optimization techniques as appropriate, variously including the following: *Automated exposure control *Adjustment of mA and/or kV according to patient size (this includes techniques or standardized protocols for targeted exams where dose is matched to indication/reason for exam; i.e. extremities or head) *Use of iterative reconstruction technique DLP: 923 mGy-cm FINDINGS: LUNG BASES: The visualized lung bases are unremarkable. LIVER, GALLBLADDER, AND BILIARY TREE: The liver is normal in size, shape, and attenuation. No focal hepatic lesion or biliary ductal dilatation is present. The gallbladder is unremarkable with no evidence of radiopaque gallstones, gallbladder wall thickening, or obvious pericholecystic inflammatory changes. PANCREAS: Unremarkable. SPLEEN: Unremarkable. ADRENAL GLANDS: Unremarkable. KIDNEYS AND URETERS: The kidneys are normal in size, shape, and attenuation. No hydronephrosis, hydroureter, or calculi seen. No perinephric stranding. BLADDER: Unremarkable. GASTROINTESTINAL TRACT: The small and large bowel are unremarkable. The appendix is unremarkable. ABDOMINAL WALL: No significant hernia is appreciated. LYMPH NODES: Normal. VASCULAR: Unremarkable. PELVIC VISCERA: Unremarkable. OSSEOUS STRUCTURES: Unremarkable. CT/CT abdomen pelvis w IV con IMPRESSION: No significant abnormality. Fleischner guidelines were followed.
[2022-07-30 19:30] VITALS: BP 106/53; BP 134/94; PULSE 106; PULSE 96; RESP 19; TEMP 36.8; O2SAT 98
[2022-07-30 19:49] VITALS: BP 106/53; PULSE 96; RESP 16; TEMP 36.8; O2SAT 98; BMI 41.1
--- NOTE | 2022-07-30 20:04 | ED_ITS ---
HPI - General Adult General Chief complaint: Abdominal Pain Stated complaint: POSSIBLE FOOD POISONING PER EMS Time Seen by Provider: 07/30/22 19:34 Source: patient, RN notes reviewed and old records reviewed Mode of arrival: ambulatory Limitations: no limitations History of Present Illness HPI narrative: 31-year-old female who denies any past medical history presents for evaluation of vomiting and diarrhea. patient reports that for the last 6 hours she has had vomiting diarrhea approximately every 30 minutes she reports this started shortly after going up the for lunch with a friend. She had white rice to eat she states that her friend does not have similar symptoms who was eating the same thing patient denies any recent travel, antibiotic use reports chills but no fevers reports generalized abdominal pain approximately 6 Related Data Previous Rx's Medication Instructions Recorded famotidine 20 mg tablet (Pepcid) 20 mg PO DAILY #30 tabs 01/30/20 loratadine 10 mg tablet (Claritin) 10 mg PO DAILY #30 tabs 01/30/20 cyclobenzaprine 5 mg tablet 5 mg PO Q8H PRN pain (scale score 06/07/21 7-10) 5 days #14 tabs hydrocodone 5 mg-acetaminophen 325 1 tab PO Q8H PRN pain, severe 3 06/07/21 mg tablet days #7 tabs lidocaine 5 % topical patch 1 patch topical DAILY PRN pain #30 06/07/21 (Lidoderm) ea naproxen 500 mg tablet 500 mg PO BID PRN pain 10 days #20 06/07/21 tabs cephalexin 500 mg capsule 500 mg PO QID 7 days #28 caps 08/06/21 doxycycline hyclate 100 mg tablet 100 mg PO BID 7 days #14 tabs 08/06/21 amoxicillin 500 mg capsule 500 mg PO BID 7 days #14 caps 09/30/21 tobramycin 0.3 % eye drops 2 drp ophthalmic-Right Q4H 5 days 12/01/21 #5 mL olopatadine 0.2 % eye drops 1 drp ophthalmic (eye) DAILY PRN 12/06/21 (Pataday Once Daily Relief) itching #2.5 mL loperamide 2 mg tablet (Imodium 2 mg PO Q4H PRN loose stool #12 07/31/22 A-D) tabs metoclopramide HCl 10 mg tablet 10 mg PO Q6H PRN nausea and 07/31/22 (Reglan) vomiting #20 tabs Allergies Allergy/AdvReac Type Severity Reaction Status Date / Time cat dander [CAT DANDER] Allergy Intermediate ITCHY Verified 09/30/21 11:36 WATERY EYES dog dander [DOGS] Allergy Intermediate ITCHY Verified 09/30/21 11:36 WATERY EYES GRASS Allergy Intermediate ITCHY, Uncoded 09/30/21 11:36 HIVES Review of Systems Constitutional: Constitutional: Reports as per HPI, Reports chills, Denies fatigue, Denies fever(s) and Denies headache(s) ENT: Denies headache(s) Cardiovascular: Cardiovascular: Denies chest pain and Denies dyspnea Respiratory: Respiratory: Denies cough and Denies dyspnea Gastrointestinal: Gastrointestinal: Reports abdominal pain, Denies hematochezia, Denies constipation, Reports diarrhea, Reports nausea and Reports vomiting Genitourinary: Genitourinary: Denies dysuria Musculoskeletal: Musculoskeletal: Denies back pain Integumentary/Breasts: Skin/Breast: Denies rash Neurologic: Denies headache(s) and Denies focal weakness Endocrine: Endocrine: Denies fatigue PMF Past Medical History Medical History Asthma H/O eye muscle disorder Post depression Surgical History Hx of breast reduction, elective Hx of tonsillectomy Social History Social History Patient Tobacco Use Status: Never used Tobacco Smoked in Last 30 Days: No Use of substances other than those prescribed or required for medical reasons: No Advance Directives: No Advance Directives Information Provided: Yes Patient : No Physical Exam ED Vital Signs: Vital Signs - 24 hr 07/30/22 19:30 07/30/22 19:49 07/31/22 00:23 Temperature 98.2 F 98.2 F 98.4 F Pulse Rate 96 96 60 Respiratory Rate 19 16 15 Blood Pressure 106/53 L 106/53 L 106/54 L Pulse Oximetry 98 98 98 Oxygen Delivery Method Room Air Room Air Room Air BMI result Body Mass Index 41.1 Const General: healthy appearing, comfortable, no acute distress, alert and awake Nutritional Appearance: well nourished Orientation/consciousness: patient oriented x3 HENMT Head: Yes normocephalic and Yes atraumatic Throat: Yes posterior oropharynx normal Eyes Eyelids: Yes eyelids normal Conjunctivae: conjunctivae normal Sclerae: sclerae normal Corneas: corneas normal Pupils: Equal, round and reactive pupils present EOM: EOMs intact bilaterally Neck Neck: Yes full ROM Resp Effort & Inspection: normal respiratory effort, able to speak in complete sentences, no audible wheezes and not labored Cardio Rate: regular rate Rhythm: regular rhythm GI Other: abdomen is soft, obese but nondistended. She is tender to palpation diffusely with mostly in the periumbilical region. No significant point tenderness. No guarding Skin General skin exam: no rashes or lesions noted and elasticity normal Neuro General: patient oriented x3 Cranial nerves: Yes Equal, round and reactive pupils present and Yes Bilaterally intact EOM present Cognition (Neuro): normal cognition Extrem Other: Moving all extremities well without any obvious deformities Course Reevaluation(s) Reevaluation #1: patient's CT scan without any acute findings. She was unable to provide a stool sample after have been ordered. The patient reports feeling much better. She states that the Reglan help more than the Zofran, we will discharge her with Reglan for nausea as, she will pick pulling machine tender a modem as well and she will try to stay well hydrated by drinking small frequent sips tomorrow. Time: 00:54 Medications Administered Discontinued Medications Generic Name Dose Route Start Last Admin Trade Name Freq PRN Reason Stop Dose Admin Sodium Chloride 1,000 mls @ 999 mls/hr 07/30/22 20:00 07/30/22 23:38 Ns IV 07/30/22 21:00 Infused .Q1H1M HOLLY Infusion Iohexol 85 ml 07/30/22 23:48 07/30/22 23:49 Iohexol 350 Mg/Ml 100 Ml Infus..Btl IV 07/30/22 23:49 85 ml ONCE ONE Administration Ketorolac Tromethamine 30 mg 07/30/22 22:01 07/30/22 22:26 Ketorolac Tromethamine 30 Mg/Ml Vial IVPUSH 07/30/22 22:02 30 mg ONCE ONE Administration Metoclopramide HCl 10 mg 07/30/22 22:38 07/30/22 22:50 Metoclopramide Hcl 10 Mg/2 Ml Vial IVPUSH 07/30/22 22:39 10 mg ONCE ONE Administration Ondansetron HCl 4 mg 07/30/22 19:51 07/30/22 20:08 Ondansetron Hcl 4 Mg/2 Ml Vial IVPUSH 07/30/22 19:52 4 mg ONCE ONE Administration Medical Decision Making Medical Decision Making MDM Narrative: 31-year-old female presents for evaluation of a few hours of nausea vomiting and diarrhea. Denies any risk factors for C diff, denies any recent travel. W ill get labs, to with IV fluids and Zofran. Will hold emergent imaging at this time. Her abdomen is soft, nondistended and no guarding. Differential Diagnosis Gastroenteritis Food-borne illness Acute abdominal pain Cholecystitis Pancreatitis Shigella Campylobacter Lab Data 07/30/22 20:02 07/30/22 20:02 Labs: Lab Results 07/30/22 07/30/22 07/30/22 Range/Units 20:02 20:02 21:57 WBC 14.5 H (4.8-10.8) X10*3/uL RBC 5.13 (4.20-5.50) X10*6/uL Hgb 15.0 (12.0-16.0) g/dl Hct 45.6 (37.0-47.0) % MCV 88.9 (80.0-98.0) fL MCH 29.2 (27.0-33.0) pg MCHC 32.9 (31.0-35.0) g/dl RDW 12.5 (11.0-16.0) % Plt Count 224 (160-400) X10*3/uL MPV 10.7 (9.4-12.3) fL Immature Gran % (Auto) 0.3 (0.0-0.4) % Neut % (Auto) 86.6 H (45-73) % Lymph % (Auto) 6.2 L (20-40) % Whitfield % (Auto) 5.2 (2-11) % Eos % (Auto) 1.6 (0-4) % Baso % (Auto) 0.1 (0-2) % Lymph # (Auto) 0.9 L (1.2-4.9) X10*3/uL Whitfield # (Auto) 0.8 (0.1-1.2) X10*3/uL Eos # (Auto) 0.2 (0.0-0.4) X10*3/uL Baso # (Auto) 0.0 (0.0-0.2) X10*3/uL Abs Immat Gran (auto) 0.05 H (0.00-0.03) X10*3/uL Absolute Neuts (auto) 12.5 H (2.0-8.3) x10*3/uL Absolute Nucleated RBC 0.000 (0.0-0.012) X10*3/uL Nucleated RBC % (auto) 0.0 (0.0-0.2) /100WBC Sodium 140 (135-145) mmol/L Potassium 4.4 (3.3-5.1) mmol/L Chloride 106 (96-108) mmol/L Carbon Dioxide 25 (22-29) mmol/L Anion Gap 13 (12-20) BUN 12 (9-16) mg/dL Creatinine 0.84 (0.5-1.4) mg/dL Estim Creat Clear Calc 106.6 Estimated GFR > 60 Random Glucose 96 (60-115) mg/dL Calcium 9.4 (8.4-10.2) mg/dL Total Bilirubin 0.6 (0.0-1.0) mg/dL AST 18 (5-31) U/L ALT 18 (0-31) U/L Alkaline Phosphatase 92 (39-117) U/L Total Protein 7.0 (6.5-8.0) g/dL Albumin 4.2 (3.5-5.0) g/dL Lipase 40 (8-78) U/L Beta HCG, Quant < 2 mIU/mL Urine Color Yellow Urine Appearance Clear Urine pH 8.5 (5.0-9.0) Ur Specific Sunman 1.020 (1.005-1.025) Urine Protein Negative (Neg-Trace) mg/dL Urine Glucose (UA) Negative (Negative) mg/dL Urine Ketones Negative (Negative) mg/dL Urine Blood Negative (Negative) Urine Nitrite Negative (Negative) Ur Leukocyte Esterase Negative (Negative) Urine RBC 0-2 (0-2) /HPF Urine WBC 0-5 (0-5) /HPF Ur Squamous Epith Cells 3-5 (0-2) /HPF Urine Bacteria Trace (None Seen) Hyaline Casts 0-2 (0-2) /LPF Discharge Plan Discharge Clinical Impression: Abdominal pain, vomiting, and diarrhea Patient Disposition: Home, Self-Care Instructions: Gastroenteritis (ED) Additional Instructions: your CT scan did not show any significant abnormalities take Reglan for nausea and vomiting you may use Imodium to help prevent diarrhea try to stay well hydrated with small, frequent sips follow-up with your primary doctor Prescriptions: New metoclopramide HCl [Reglan] 10 mg tablet 10 mg PO Q6H PRN (Reason: nausea and vomiting) Qty: 20 0RF loperamide [Imodium A-D] 2 mg tablet 2 mg PO Q4H PRN (Reason: loose stool) Qty: 12 0RF Rx Instructions: administer after each loose stool until symptoms controlled; do not exceed 8 mg per 24 hrs No Action loratadine [Claritin] 10 mg tablet 10 mg PO DAILY Qty: 30 0RF famotidine [Pepcid] 20 mg tablet 20 mg PO DAILY Qty: 30 0RF hydrocodone-acetaminophen 5-325 mg tablet 1 tab PO Q8H PRN (Reason: pain, severe) 3 Days Qty: 7 0RF cyclobenzaprine 5 mg tablet 5 mg PO Q8H PRN (Reason: pain (scale score 7-10)) 5 Days Qty: 14 0RF lidocaine [Lidoderm] 5 % adhesive patch,medicated 1 patch topical DAILY MDD remove after 12 hours PRN (Reason: pain) Qty: 30 0RF Rx Instructions: leave on most painful area for up to 12 hrs naproxen 500 mg tablet 500 mg PO BID PRN (Reason: pain) 10 Days Qty: 20 0RF cephalexin 500 mg capsule 500 mg PO QID 7 Days Qty: 28 0RF doxycycline hyclate 100 mg tablet 100 mg PO BID 7 Days Qty: 14 0RF amoxicillin 500 mg capsule 500 mg PO BID 7 Days Qty: 14 0RF olopatadine [Pataday Once Daily Relief] 0.2 % drops 1 drp ophthalmic (eye) DAILY PRN (Reason: itching) Qty: 2.5 0RF tobramycin 0.3 % drops 2 drp ophthalmic-Right Q4H 5 Days Qty: 5 0RF Stand Alone Forms: Work/School Release
[2022-07-30 20:07] LABS: MANUAL DIFF FLAG NO
[2022-07-30] MEDS: ondansetron HCL 4 MG/2 ML VIAL IVPUSH (20:08)
[2022-07-30 20:09] LABS: Basophils Percent Auto 0.1 % (0-2); Eosinophils Absolute Auto 0.2 X10*3/uL (0.0-0.4); Eosinophils Percent Auto 1.6 % (0-4); Hematocrit 45.6 % (37.0-47.0); Imm Gran Abs Auto 0.05 X10*3/uL (0.00-0.03); Imm Gran Pct Auto 0.3 % (0.0-0.4); Lymphocytes Absolute Auto 0.9 X10*3/uL (1.2-4.9); Lymphocytes Percent Auto 6.2 % (20-40); Mean Corpuscular HGB Conc 32.9 g/dl (31.0-35.0); Mean Corpuscular Hemoglobin 29.2 pg (27.0-33.0); Mean Corpuscular Volume 88.9 fL (80.0-98.0); Mean Platelet Volume 10.7 fL (9.4-12.3); Monocytes Absolute Auto 0.8 X10*3/uL (0.1-1.2); Monocytes Percent Auto 5.2 % (2-11); Neutrophils Absolute Auto 12.5 x10*3/uL (2.0-8.3); Neutrophils Percent Auto 86.6 % (45-73); Platelet Count 224 X10*3/uL (160-400); Red Blood Count 5.13 X10*6/uL (4.20-5.50); Red Cell Distribution Width 12.5 % (11.0-16.0); White Blood Count 14.5 X10*3/uL (4.8-10.8)
[2022-07-30] MEDS: 0.9 % Sodium Chloride 1,000 ML 999 ML IV (20:09)
[2022-07-30 20:23] LABS: Alanine Aminotransferase 18 U/L (0-31); Albumin Level 4.2 g/dL (3.5-5.0); Alkaline Phosphatase 92 U/L (39-117); Anion Gap 13 (12-20); Aspartate Amino Transferase 18 U/L (5-31); Bilirubin Total 0.6 mg/dL (0.0-1.0); Blood Urea Nitrogen 12 mg/dL (9-16); Calcium 9.4 mg/dL (8.4-10.2); Carbon Dioxide 25 mmol/L (22-29); Chloride 106 mmol/L (96-108); Creatinine Clr Calc Pharmacy 106.6; Estimated Glomerular Filt Rate > 60; Glucose Random 96 mg/dL (60-115); Lipase 40 U/L (8-78); Potassium 4.4 mmol/L (3.3-5.1); Sodium 140 mmol/L (135-145)
[2022-07-30 22:06] LABS: Appearance Urine Clear; Color Urine Yellow; Glucose Urine UA Negative (Negative); Leukocyte Esterase Urine Negative (Negative); Nitrite Urine Negative (Negative); PH 8.5 (5.0-9.0); Urine Blood Negative (Negative); Urine Ketones Negative (Negative); Urine Protein Negative (Neg-Trace)
[2022-07-30 22:08] LABS: Bacteria Urine Trace (None Seen); Hyaline Casts Urine 0-2 /LPF (0-2); RBC Urine 0-2 /HPF (0-2); WBC Urine 0-5 /HPF (0-5)
--- NOTE | 2022-07-30 22:10 | PC.NURSE ---
Pt ca&ox3. Pt denies chest pain or SOB. Provider in to assess pt. No signs of distress. Pt requesting pain meds provider aware. Will continue to monitor.
[2022-07-30] MEDS: Ketorolac Tromethamine 30 MG/ML VIAL IVPUSH (22:26)
[2022-07-30] MEDS: Metoclopramide HCl 10 MG/2 ML VIAL IVPUSH (22:50)
--- NOTE | 2022-07-30 22:57 | PC.NURSE ---
Pt medicated per mar. Pt denies chest pain and SOB. No signs of distress. Will continue to monitor.
[2022-07-30 23:32] LABS: HCG Quantitative < 2 mIU/mL
[2022-07-30] MEDS: iohexoL 350 MG/ML 100 ML INFUS..BTL 85 ML IV (23:49)
[2022-07-31 00:23] VITALS: BP 106/54; PULSE 60; RESP 15; TEMP 36.9; O2SAT 98
== END 2022-07-31 01:14 | disposition home or self-care (01) ==
PROVIDERS: Physician Assistant; Emergency Provider Student in an Organized Health Care Education/Training Program
DX: R11.10 Vomiting, unspecified (principal); R19.7 Diarrhea, unspecified; R10.33 Periumbilical pain; Z79.899 Other long term (current) drug therapy
CPT/HCPCS: 36415; 74177; 80053; 81001; 83690; 84702; 85025; 96361; 96374; 96375; 99284; 99285; J1885; J2405; J2765; Q9967

== ENCOUNTER 2023-02-13 17:17 | Emergency (ER) | payer OTHER, SELFPAY ==
--- NOTE | ~2023-02-13 | XR_ITS ---
EXAMINATION: XR KNEE, LEFT CLINICAL INFORMATION: Reason for Exam pain, no trauma COMPARISON: None TECHNIQUE: 4 views of the knee FINDINGS: No acute fracture or dislocation. Joint spaces are maintained. No joint effusion. Soft tissues are unremarkable. XR/XR knee LT 3V IMPRESSION: * No acute osseous abnormality. * Joint spaces are maintained without significant degenerative change.
[2023-02-13 17:35] VITALS: BP 112/55; PULSE 80; RESP 18; TEMP 36.6; O2SAT 98; BMI 42.1
--- NOTE | 2023-02-13 17:35 | ED_ITS ---
HPI - Extremity Injury (Lower) General Chief Complaint: Extremity Injury, Lower Stated Complaint: Swollen left knee Time Seen by Provider: 02/13/23 19:20 Source: patient and RN notes reviewed Mode of arrival: ambulatory Limitations: no limitations History of Present Illness HPI Narrative: This is a [id number]-female presenting to the emergency department with complaints of atraumatic knee pain for the last several weeks. Reports no recent trauma or injury. No calf tenderness. She has been taking OTC ibuprofen with minimal relief. She has been trying to get into orthopedics offices but they are unable to see her for a couple of months. No fevers or chills. Pain worsens with weight bearing. No other complaints or concerns at this time. MD complaint: knee injury Type of Injury: unknown Relieving factors: nothing Exacerbating factors: weight bearing and movement Other symptoms: none Treatments prior to arrival: NSAIDS Related Data Previous Rx's Medication Instructions Recorded famotidine 20 mg tablet (Pepcid) 20 mg PO DAILY #30 tabs 01/30/20 loratadine 10 mg tablet (Claritin) 10 mg PO DAILY #30 tabs 01/30/20 lidocaine 5 % topical patch 1 patch topical DAILY PRN pain #30 06/07/21 (Lidoderm) ea metoclopramide HCl 10 mg tablet 10 mg PO Q6H PRN nausea and 07/31/22 (Reglan) vomiting #20 tabs diclofenac sodium 1 % topical gel 4 g topical QID #100 grams 02/13/23 (Arthritis Pain (diclofenac)) ibuprofen 800 mg tablet 800 mg PO TID PRN pain #30 tabs 02/22/23 Allergies Allergy/AdvReac Type Severity Reaction Status Date / Time cat dander [CAT DANDER] Allergy Intermediate ITCHY Verified 02/13/23 17:34 WATERY EYES dog dander [DOGS] Allergy Intermediate ITCHY Verified 02/13/23 17:34 WATERY EYES GRASS Allergy Intermediate ITCHY, Uncoded 09/30/21 11:36 HIVES Review of Systems Review of Systems: Yes all other systems are reviewed and are negative PMFSH Past Medical History Medical History Asthma H/O eye muscle disorder Post depression Surgical History Hx of breast reduction, elective Hx of tonsillectomy Social History Social History (Updated 02/22/23 @ 15:03 by Dalila Javier CMA) Patient Tobacco Use Status: Never used Tobacco Current occupational status: employed Physical Exam Vital Signs: Vital Signs: Last Vital Signs Temp 97.9 F 02/13/23 17:35 Pulse 80 02/13/23 17:35 Resp 18 02/13/23 17:35 BP 112/55 L 02/13/23 17:35 Pulse Ox 98 02/13/23 17:35 O2 Del Method Room Air 02/13/23 17:35 BMI result Body Mass Index 42.1 Const: Other: General: Awake, alert, and oriented X3. No acute distress. HEENT: Normal inspection CVS: Normal heart rate and rhythm. Pulses normal. Respiratory: No respiratory distress Skin: Warm, dry, no rashes noted to exposed skin. Normal skin color. Normal skin turgor. Extremities: Left knee with no obvious deformity or significant swelling. Mild patellar belottement, pain with anterior and posterior drawer test. TTP over the lateral joint line and patellar surface. No calf tenderness. Full ROM of the knee. No overlying erythema. Neuro: Oriented X 3. No motor deficit. No sensory deficit. Course Course Course Narrative: This is an RME: Additional HPI, ROS, PE not included below will be deferred to primary provider. This is a 48-[id number]-female, with a hx of asthma, presenting to the ER with complaints of left knee swelling and pain x several weeks. No trauma or injury. Left knee with tenderness palpation along the patella and lateral joint line. Plan: X-ray left knee Medical Decision Making Medical Decision Making MDM Narrative: This is a 57-[id number]-female, with a hx of asthma, presenting to the ER with complaints of left knee swelling and pain x several weeks. No trauma or injury. Left knee with tenderness palpation along the patella and lateral joint line. No surrounding erythema, good ROM. Xray was ordered which was normal. Discussed results with patient, given ortho referral and advised to return with any new or worsening symptoms. PT understands and agrees with plan. Stable for d/c. Differential Diagnosis Differential Diagnoses: The differential diagnosis associated with the presentation includes knee strain, sprain, contusion, internal ligamentous derangement, septic joint- unlikely. Independent Interpretation I performed an independent interpretation of an: Plain X-Ray Interpretation: COMPARISON: None TECHNIQUE: 4 views of the knee FINDINGS: No acute fracture or dislocation. Joint spaces are maintained. No joint effusion. Soft tissues are unremarkable. XR/XR knee LT 3V IMPRESSION: * No acute osseous abnormality. * Joint spaces are maintained without significant degenerative change. Dictated By: Evangelina Abel MD Signed By: <Electronically signed by Discharge Plan Discharge Clinical Impression: Left knee sprain Patient Disposition: Home, Self-Care Instructions: Knee Sprain (ED), Crutch Instructions (ED), How to Use an Elastic Bandage (ED) Additional Instructions: Your x-ray did not show any bony abnormalities. Please take ibuprofen and Tylenol as needed for pain. You may use topical diclofenac as needed for pain. Please follow-up with Orthopedics, call Wednesday to make an appointment. Rest, ice, use Jose Cruz wrap, and crutches as needed for pain and symptoms. Keeping your leg elevated can also help with pain relief. If any new or worsening symptoms occur, please return for re-evaluation Prescriptions: New diclofenac sodium [Arthritis Pain (diclofenac)] 1 % gel 4 g topical QID Qty: 100 0RF No Action loratadine [Claritin] 10 mg tablet 10 mg PO DAILY Qty: 30 0RF famotidine [Pepcid] 20 mg tablet 20 mg PO DAILY Qty: 30 0RF lidocaine [Lidoderm] 5 % adhesive patch,medicated 1 patch topical DAILY MDD remove after 12 hours PRN (Reason: pain) Qty: 30 0RF Rx Instructions: leave on most painful area for up to 12 hrs metoclopramide HCl [Reglan] 10 mg tablet 10 mg PO Q6H PRN (Reason: nausea and vomiting) Qty: 20 0RF ibuprofen 800 mg tablet 800 mg PO TID PRN (Reason: pain) Qty: 30 3RF Referrals: [facility] [place] [facility] Surgeons [Provider Group] Interventions: ED Discharge Assessment Last Done: 02/13/23 21:32 Discharge Date/Time: 02/13/23 21:33
== END 2023-02-13 21:33 | disposition home or self-care (01) ==
PROVIDERS: Emergency Provider Student in an Organized Health Care Education/Training Program
DX: S83.92XA Sprain of unspecified site of left knee, initial encounter (principal); X58.XXXA Exposure to other specified factors, initial encounter; Y93.9 Activity, unspecified; Y92.9 Unspecified place or not applicable; Y99.9 Unspecified external cause status
CPT/HCPCS: 73562; 99282; 99283

== ENCOUNTER 2023-02-22 14:49 | Outpatient (AMB) | payer OTHER, SELFPAY ==
[2023-02-22 14:56] VITALS: BMI 41.9
--- NOTE | 2023-02-22 14:56 | MHC.OFFVIS ---
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 Patient reports that she has had left knee pain for a few weeks now. Denies injury. One day she noticed she had random pain on the lateral aspect of the knee but brushed it off, but since has had increased pain of the knee. She was seen in the ED where she was told that she has fluid in the knee. She has increased pain with ambulation and activity. She is taking Ibuprofen, which is mildly helping her pain but is helping her swelling. Allergies cat dander [CAT DANDER] Allergy (Intermediate, Verified 02/13/23 17:34) ITCHY WATERY EYES dog dander [DOGS] Allergy (Intermediate, Verified 02/13/23 17:34) ITCHY WATERY EYES GRASS Allergy (Intermediate, Uncoded 09/30/21 11:36) ITCHY, HIVES HPI MANAGER BUDGET- Left knee sprain/ ER Follow up HPI Details Jackie is a 32 year old woman who presents with left knee pain. She complains of pain with daily activity for the last few weeks. She was seen in the ED and told she had fluid in her knee. She has worse pain with walking or using stairs, and has found mild relief from Ibuprofen. She feels limited in her activities by pain. [facility] Medical History Asthma H/O eye muscle disorder Post depression Surgical History Hx of breast reduction, elective Hx of tonsillectomy (Updated 02/22/23 @ 15:03 by Dalila Javier CMA) Patient Tobacco Use Status: Never used Tobacco Current occupational status: employed Review of Systems Const All systems reviewed & are unremarkable except as noted in HPI and below Physical Exam Vital Signs: BMI result Body Mass Index 41.9 Const General: no acute distress, alert and awake Orientation/consciousness: patient oriented x3 HEENT Head: Yes normocephalic and Yes atraumatic Eyes EOM: EOMs intact bilaterally Resp Effort & Inspection: normal respiratory effort and able to speak in complete sentences Cardio Jugular venous distension: no JVD Skin General skin exam: turgor normal Rashes: no rashes Neuro General: patient oriented x3 Extrem Other: Left knee: + Dynamic step-down test Tenderness to palpation retro lateral patellar facet Valgus alignment Psych Appearance: grossly normal Affect: normal affect Attitude: cooperative Office Procedures Joint Injection/Drain Joint Injection/Drain Details: Injected 1 mL of Decadron and 3 mL 1% lidocaine and 3 mL of 0.25% Marcaine. Site was prepped using aseptic technique. Patient tolerated the procedure well. Primary Site: left knee Approach Used: anterolateral Coding - Large joint Procedure code (CPT) selection complete Results Reviewed Results Reviewed: .rad Unremarkable radiographs Assessment & Plan Assessment & Plan (1) Patellofemoral pain syndrome of left knee: Code(s): M22.2X2 - Patellofemoral disorders, left knee Plan: This is a 32 year old woman with left patellofemoral pain syndrome with valgus alignment. She has pain with daily activity, primarily ambulation and descending stairs. She denies any prior treatment and finds mild relief from Ibuprofen. I discussed her diagnosis and treatment options. She was fitted for a bolster knee brace to wear with daily activity and ordered NSAIDs to take prn. I injected her left knee today, which she tolerated well, and ordered PT to work on strengthening exercises and normalizing gait mechanics. She will follow up prn. Plan Scribed for David Kahn MD by Sami Gonzalez, veterinary medical officer, on 02/22/23 at 3:15 PM, EST. Orders: Orders PT Evaluation and Treatment Today M22.2X2 - Patellofemoral disorders, left knee Medications: New ibuprofen 800 mg PO TID PRN 30 tabs 3RF pain Coding Level of Care Code New Pt Level 4 (83636) Diagnoses Patellofemoral pain syndrome of left knee M22.2X2 CPT Codes Coding - Large joint: 62288 - Large joint ([id number])
== END 2023-02-22 15:35 | disposition home or self-care (01) ==
PROVIDERS: Visit Provider Orthopaedic Surgery
DX: M22.2X2 Patellofemoral disorders, left knee (principal)
CPT/HCPCS: 20610; 99204

== ENCOUNTER → 2023-02-22 14:49 | Outpatient (BNVA) | payer OTHER, SELFPAY | PROVIDERS: Visit Provider Orthopaedic Surgery | DX: M22.2X2 Patellofemoral disorders, left knee (principal) | CPT/HCPCS: 20610; J0665; J1100 ==

== ENCOUNTER 2024-01-16 09:40 | Observation (INO) | payer MEDICAID, SELFPAY ==
[2024-01-16] VITALS (10 sets, daily range): BP systolic 98–122; BP diastolic 32–84; PULSE 82–119; RESP 15–26; TEMP 36.1–36.6; O2SAT 96–100; BMI 38.3; BMI 39.9
--- NOTE | ~2024-01-16 | XR_ITS ---
EXAMINATION: XR CHEST CLINICAL INFORMATION: Upper respiratory/cough COMPARISON: None available. TECHNIQUE: Frontal view of the chest was obtained. FINDINGS: No focal consolidation. No pneumothorax. Trachea is midline. Cardiac and mediastinal size is not enlarged. No large pleural effusion. Osseous structures are intact. Radiopaque clip-like material noted overlying the right lateral lower breast. XR/XR chest 1V IMPRESSION: No acute cardiopulmonary process. Electronically signed by: Florin Jones MD 01/16/2024 10:52 AM EDT
[2024-01-16] MEDS: Albuterol Sulfate 7.5 MG, Albuterol/Iprat 2.5/0.5MG 3 ML 3 ML INHALE (09:57)
--- NOTE | 2024-01-16 09:58 | ED_ITS ---
HPI - Asthma General Chief Complaint: Upper Respiratory Symptoms Stated Complaint: Asthma Time Seen by Provider: 01/16/24 09:52 Source: patient Mode of arrival: ambulatory Limitations: no limitations History of Present Illness ED Provider: Johny Ortega PA-C HPI Narrative: 33 yo female with history of mild intermittent asthma presents to the ER for evaluation of SOB and wheezing that started last night. She reports for the last one week she has had chest and nasal congestion, sinus pressure. She states she was up all night and could not breathe, having severe coughing fits and difficulty catching her breath. She was unable to lay flat due to shortness of breath. She reports noisy, wheezing sounds when she breathes in and out. She reports she has had significant difficulty breathing. She has chest tightness and is unable take a deep breath without coughing. She is unable to speak in full sentences due to shortness of breath and wheezing. She denies any fever or chills. She denies any abdominal pain, nausea, vomiting, diarrhea. She denies any known sick contacts. She reports years ago she had asthma but has not had any recent flare-ups of her asthma and is not on any maintenance medications for asthma. She does not have an inhaler at home. MD complaint: shortness of breath and wheezing Onset (ago): day(s) (1) Severity: severe Context: recent URI Associated symptoms: dry cough Related Data Current Asthma Therapy: none Previous Rx's ?Medication ?Instructions ?Recorded famotidine 20 mg tablet (Pepcid) 20 mg PO DAILY #30 tabs 01/30/20 loratadine 10 mg tablet (Claritin) 10 mg PO DAILY #30 tabs 01/30/20 lidocaine 5 % topical patch 1 patch topical DAILY PRN pain #30 06/07/21 (Lidoderm) ea metoclopramide HCl 10 mg tablet 10 mg PO Q6H PRN nausea and 07/31/22 (Reglan) vomiting #20 tabs diclofenac sodium 1 % topical gel 4 g topical QID #100 grams 02/13/23 (Arthritis Pain (diclofenac)) ibuprofen 800 mg tablet 800 mg PO TID PRN pain #30 tabs 02/22/23 Allergies Allergy/AdvReac Type Severity Reaction Status Date / Time cat dander [CAT DANDER] Allergy Intermediate ITCHY Verified 01/16/24 09:49 WATERY EYES dog dander [DOGS] Allergy Intermediate ITCHY Verified 01/16/24 09:49 WATERY EYES GRASS Allergy Intermediate ITCHY, Uncoded 09/30/21 11:36 HIVES Review of Systems 2 Review of Systems: Yes all other systems are reviewed and are negative [facility] Past Medical History Medical History Asthma H/O eye muscle disorder Post depression Surgical History Hx of breast reduction, elective Hx of tonsillectomy Social History Social History (Updated 02/22/23 @ 15:03 by Dalila Javier CMA) Alcohol intake: current Alcohol intake frequency: holidays/special occasions only Patient Tobacco Use Status: Never used Tobacco Smoked in Last 30 Days: No Use of substances other than those prescribed or required for medical reasons: No Advance Directives: No Advance Directives Information Provided: No Do you have a plan to hurt others: No Plan Patient : No Current occupational status: employed Physical Exam 2 Vital Signs: Vital Signs: Last Vital Signs Temp 97.9 F 01/16/24 09:47 Pulse 113 H 01/16/24 14:25 Resp 22 H 01/16/24 14:25 BP 114/53 L 01/16/24 14:25 Pulse Ox 98 01/16/24 14:25 O2 Del Method Room Air 01/16/24 12:14 BMI result Body Mass Index 38.3 Appearance: Alert. Oriented X3. Moderate respiratory distress. Head: normocephalic, atraumatic. Eyes: Pupils equal, round and reactive to light. ENT: Pharynx normal. No tonsillar swelling or exudate. Neck: Normal inspection. Neck supple. CVS: Normal heart rate and rhythm. Pulses normal. Respiratory: Moderate respiratory distress w increased RR mid 20s w/ accessory muscle use. Breath sounds with diffuse inspiratory and expiratory wheezes, coarse, dry cough Abdomen: Soft and nontender. +BS x4 Skin: Skin warm and dry. Normal skin color. Normal skin turgor. No rashes. Extremities: No lower extremity edema. No joint swelling. Neuro/psych: Oriented X 3. No motor deficit. No sensory deficit. CN II-XII intact. Normal speech and cognition. Course Reevaluation(s) Reevaluation #1: Patient continues to be wheezy, tachypneic and having difficulty breathing. Not hypoxic. Repeat bronchodilator given per respiratory. Time: 11:00 Reevaluation #2: Patient overall improving however she continues to be dyspneic, unable to speak in complete sentences, bronchospastic cough. Her lung sounds are improved but she continues to have wheezing. Third nebulizer treatment ordered Time: 13:45 Reevaluation #3: Overall improved but no where near her baseline case, she continues to be bronchospastic. Wheezing overall improved but still present. Will plan to admit to the hospital for further management acute asthma exacerbation Time: 15:03 Medications Administered Discontinued Medications Generic Name Dose Route Start Last Admin Trade Name Freq PRN Reason Stop Dose Admin Acetaminophen 650 mg 01/16/24 11:13 01/16/24 12:04 Acetaminophen 325 Mg Tablet PO 01/16/24 11:14 650 mg ONCE ONE Administration Albuterol Sulfate 7.5 mg/ 0 mg 01/16/24 09:55 01/16/24 09:57 Albuterol/Ipratropium 3 ml INHALE 01/16/24 09:56 1 each ONCE ONE Administration Albuterol Sulfate 5 mg/ 0 mg 01/16/24 11:01 01/16/24 11:05 Albuterol/Ipratropium 3 ml INHALE 01/16/24 11:02 1 each ONCE ONE Administration Albuterol Sulfate 5 mg/ 0 mg 01/16/24 13:56 01/16/24 13:58 Albuterol/Ipratropium 3 ml INHALE 01/16/24 13:57 1 each ONCE ONE Administration Guaifenesin 1,200 mg 01/16/24 09:58 01/16/24 10:08 Guaifenesin La 600 Mg Tab.Er.12h PO 01/16/24 09:59 1,200 mg ONCE ONE Administration Magnesium Sulfate 2 gm in 50 mls @ 150 mls/hr 01/16/24 09:57 01/16/24 10:36 Magnesium Sulfate/H2o IV 01/16/24 10:16 Infused ONCE ONE Infusion Loratadine 10 mg 01/16/24 11:57 01/16/24 12:04 Loratadine 10 Mg Tablet PO 01/16/24 11:58 10 mg ONCE ONE Administration Methylprednisolone Sodium Succinate 80 mg 01/16/24 09:57 01/16/24 10:08 Methylprednisolone Sod Succ 125 Mg/2 Ml Vial IVPUSH 01/16/24 09:58 80 mg ONCE ONE Administration Medical Decision Making Medical Decision Making [facility] Narrative: 33-year-old female with history of mild intermittent asthma, no recent asthma exacerbations in several years, not currently on any treatment who presents to the ER for evaluation of acute onset of wheezing, shortness of breath and difficulty breathing that started last night after 1 week of URI symptoms. On arrival to the ER she is in moderate respiratory distress with increased work of breathing, audible wheezing with accessory muscle use. She is not hypoxic. IV was established and she was given IV steroids, IV Mag and ED bronchodilator protocol was started. She required a total of 17.5 mg of albuterol with ongoing shortness of breath and wheezing. Chest x-ray did not show any evidence of pneumonia. No role for antibiotics at this time. Lab workup was unremarkable. She continues to be symptomatic despite multiple breathing treatments, will admit for further management Differential Diagnosis Differential Diagnoses: The differential diagnosis associated with the presentation includes Acute asthma exacerbation, COPD exacerbation, COVID, flu, RSV, bronchitis, pneumonia, pneumonitis, status asthmaticus Admission/Observation Consideration of admission/observation: Escalation of care including admission/observation considered Consult Healthcare Provider Management of the patient was discussed with: Hospitalist Lab Data [facility] Lab Attestation statement: I reviewed the patient's lab results. No leukocytosis, no major metabolic derangement 01/16/24 10:04 01/16/24 10:04 Labs: Lab Results 01/16/24 Range/Units 10:04 WBC 7.7 (4.8-10.8) X10*3/uL RBC 5.13 (4.20-5.50) X10*6/uL Hgb 15.5 (12.0-16.0) g/dl Hct 44.6 (37.0-47.0) % MCV 86.9 (80.0-98.0) fL MCH 30.2 (27.0-33.0) pg MCHC 34.8 (31.0-35.0) g/dl RDW 12.7 (11.0-16.0) % Plt Count 266 (160-400) X10*3/uL MPV 11.1 (9.4-12.3) fL Immature Gran % (Auto) 0.3 (0.0-0.4) % Neut % (Auto) 55.6 (45-73) % Lymph % (Auto) 34.3 (20-40) % [place] % (Auto) 5.5 (2-11) % Eos % (Auto) 4.0 (0-4) % Baso % (Auto) 0.3 (0-2) % Lymph # (Auto) 2.6 (1.2-4.9) X10*3/uL [place] # (Auto) 0.4 (0.1-1.2) X10*3/uL Eos # (Auto) 0.3 (0.0-0.4) X10*3/uL Baso # (Auto) 0.0 (0.0-0.2) X10*3/uL Abs Immat Gran (auto) 0.02 (0.00-0.03) X10*3/uL Absolute Neuts (auto) 4.3 (2.0-8.3) x10*3/uL Absolute Nucleated RBC 0.000 (0.0-0.012) X10*3/uL Nucleated RBC % (auto) 0.0 (0.0-0.2) /100WBC Sodium 140 (135-145) mmol/L Potassium 3.9 (3.3-5.1) mmol/L Chloride 110 H (96-108) mmol/L Carbon Dioxide 20 L (22-29) mmol/L Anion Gap 14 (12-20) BUN 13 (9-16) mg/dL Creatinine 0.83 (0.5-1.4) mg/dL Estim Creat Clear Calc 101.7 Estimated GFR > 60 Random Glucose 96 (60-115) mg/dL Calcium 9.9 (8.4-10.2) mg/dL Magnesium 2.0 (1.6-2.6) mg/dL Total Bilirubin 0.3 (0.0-1.0) mg/dL Direct Bilirubin 0.1 (0.0-0.5) mg/dL AST 19 (5-31) U/L ALT 14 (0-31) U/L Alkaline Phosphatase 84 (39-117) U/L Total Protein 7.4 (6.5-8.0) g/dL Albumin 4.2 (3.5-5.0) g/dL Influenza Type A (PCR) NEGATIVE (Negative) Influenza Type B (PCR) NEGATIVE (Negative) RSV RNA Qual (PCR) NEGATIVE (Negative) SARS-CoV-2 RNA (RT-PCR) NEGATIVE (Negative) Independent Interpretation I performed an independent interpretation of an: Plain X-Ray Interpretation: cxr without focal infiltrate or effusion Radiology Impression Discussion of test interpretation with radiology: I have reviewed the radiologist's reading. Radiologist Impression: EXAMINATION: XR CHEST CLINICAL INFORMATION: Upper respiratory/cough COMPARISON: None available. TECHNIQUE: Frontal view of the chest was obtained. FINDINGS: No focal consolidation. No pneumothorax. Trachea is midline. Cardiac and mediastinal size is not enlarged. No large pleural effusion. Osseous structures are intact. Radiopaque clip-like material noted overlying the right lateral lower breast. XR/XR chest 1V IMPRESSION: No acute cardiopulmonary process. External Record Review External record reviewed: Prior outpatient radiology Prescription Management I considered prescription management with: Antibiotic and Other (Bronchodilator, steroid) Chronic Conditions Patient?s care impacted by: Other (asthma) Critical Care Time Critical Care Time Critical Care Time: Yes Total Critical Care Time: 45 Attestation: I have personally provided critical care time exclusive of time spent on separately billable procedures. Time includes review of lab data, radiology results, discussion with consultants, and monitoring for potential decompensation. Intervention performed as documented. Discharge Plan Discharge Clinical Impression: Acute asthma exacerbation Qualifiers: Asthma severity: mild Asthma persistence: intermittent Qualified Code(s): J 45.21 - Mild intermittent asthma with (acute) exacerbation Patient Disposition: Admitted As Inpatient Prescriptions: No Action loratadine [Claritin] 10 mg tablet 10 mg PO DAILY Qty: 30 0RF famotidine [Pepcid] 20 mg tablet 20 mg PO DAILY Qty: 30 0RF lidocaine [Lidoderm] 5 % adhesive patch,medicated 1 patch topical DAILY MDD remove after 12 hours PRN (Reason: pain) Qty: 30 0RF Rx Instructions: leave on most painful area for up to 12 hrs metoclopramide HCl [Reglan] 10 mg tablet 10 mg PO Q6H PRN (Reason: nausea and vomiting) Qty: 20 0RF diclofenac sodium [Arthritis Pain (diclofenac)] 1 % gel 4 g topical QID Qty: 100 0RF ibuprofen 800 mg tablet 800 mg PO TID PRN (Reason: pain) Qty: 30 3RF Print Language: Serbian
[2024-01-16] MEDS: Magnesium Sulfate/H2O 2 GM/50 ML PIGGYBACK IV (10:08)
[2024-01-16] MEDS: methylPREDNISolone Sod Succ 125 MG/2 ML VIAL 80 MG IVPUSH (10:08)
[2024-01-16] MEDS: guaiFENesin LA 600 MG TAB.ER.12H 1200 MG PO (10:08)
[2024-01-16 10:09] LABS: MANUAL DIFF FLAG NO
[2024-01-16 10:13] LABS: Basophils Percent Auto 0.3 % (0-2); Eosinophils Absolute Auto 0.3 X10*3/uL (0.0-0.4); Hematocrit 44.6 % (37.0-47.0); Hemoglobin 15.5 g/dl (12.0-16.0); Imm Gran Abs Auto 0.02 X10*3/uL (0.00-0.03); Imm Gran Pct Auto 0.3 % (0.0-0.4); Lymphocytes Absolute Auto 2.6 X10*3/uL (1.2-4.9); Lymphocytes Percent Auto 34.3 % (20-40); Mean Corpuscular HGB Conc 34.8 g/dl (31.0-35.0); Mean Corpuscular Hemoglobin 30.2 pg (27.0-33.0); Mean Corpuscular Volume 86.9 fL (80.0-98.0); Mean Platelet Volume 11.1 fL (9.4-12.3); Monocytes Absolute Auto 0.4 X10*3/uL (0.1-1.2); Monocytes Percent Auto 5.5 % (2-11); Neutrophils Absolute Auto 4.3 x10*3/uL (2.0-8.3); Neutrophils Percent Auto 55.6 % (45-73); Platelet Count 266 X10*3/uL (160-400); Red Blood Count 5.13 X10*6/uL (4.20-5.50); Red Cell Distribution Width 12.7 % (11.0-16.0); White Blood Count 7.7 X10*3/uL (4.8-10.8)
[2024-01-16 10:28] LABS: Alanine Aminotransferase 14 U/L (0-31); Albumin Level 4.2 g/dL (3.5-5.0); Alkaline Phosphatase 84 U/L (39-117); Anion Gap 14 (12-20); Aspartate Amino Transferase 19 U/L (5-31); Bilirubin Direct 0.1 mg/dL (0.0-0.5); Bilirubin Total 0.3 mg/dL (0.0-1.0); Blood Urea Nitrogen 13 mg/dL (9-16); Calcium 9.9 mg/dL (8.4-10.2); Carbon Dioxide 20 mmol/L (22-29); Chloride 110 mmol/L (96-108); Creatinine Clr Calc Pharmacy 101.7; Estimated Glomerular Filt Rate > 60; Glucose Random 96 mg/dL (60-115); Potassium 3.9 mmol/L (3.3-5.1); Sodium 140 mmol/L (135-145); Total Protein 7.4 g/dL (6.5-8.0)
[2024-01-16 11:02] LABS: Influenza A PCR NEGATIVE (Negative); Influenza B PCR NEGATIVE (Negative); Resp Syncy Virus RNA Qual PCR NEGATIVE (Negative); SARS COV2 PCR INHOUSE NEGATIVE (Negative)
[2024-01-16] MEDS: Albuterol Sulfate 5 MG, Albuterol/Iprat 2.5/0.5MG 3 ML 3 ML INHALE ×2 (11:05→13:58)
[2024-01-16] MEDS: Acetaminophen 325 MG TABLET 650 MG PO ×2 (12:04→18:34)
[2024-01-16] MEDS: Loratadine 10 MG TABLET PO (12:04)
--- NOTE | 2024-01-16 12:07 | PC.NURSE ---
pt medicated per order
--- NOTE | 2024-01-16 15:12 | P.HPHOSP_ITS ---
History of Present Illness Date of Service: 01/16/24 Attending physician on admission: Elan Andrade Chief Complaint: SOB Pt is a 33-year-old female with a PMH significant for?mild intermittent asthma and seasonal allergies who presents to the ED with?wheezing, SOB and nonproductive cough since last night. Patient reports developed URI type symptoms 5 days prior when she experienced mild nasal congestion and a sinus headache. Symptoms went away until last night she began experiencing constant nonproductive cough, wheezing, PAIGE, SOB, and chest tightness associated with cough and deep breathing. Symptoms were not alleviated by home inhaler, and patient does not have a home nebulizer. Also reports has not been eating or drinking much for the past few days. Denies fever, nausea, vomiting, abdominal pain. Patient states has not had an asthma exacerbation since she was a child. In the ED pt was tachycardic to 119, tachypneic up to 22 soft BP as low as 98/35. Labs were grossly unremarkable. No leukocytosis. Stable H& H. No significant electrolyte abnormalities. Renal function baseline hepatic function baseline. Tested negative for flu, RSV, and COVID. CXR showed no acute cardiopulmonary process. Pt was treated with DuoNebs, Solu-Medrol, Mag sulfate, guaifenesin, acetaminophen, and loratadine. Pt will be admitted to the hospital under observation for treatment and further evaluation of acute asthma exacerbation requiring additional treatment with IV steroids and breathing treatments. Review of Systems 2 Review of Systems: Yes all other systems are reviewed and are negative [facility] Medical History Asthma H/O eye muscle disorder Post depression Surgical History Hx of breast reduction, elective Hx of tonsillectomy Social History (Updated 02/22/23 @ 15:03 by Dalila Javier CMA) Household Members: Family Housing: House Alcohol intake: current Alcohol intake frequency: holidays/special occasions only Patient Tobacco Use Status: Never used Tobacco Smoked in Last 30 Days: No Use of substances other than those prescribed or required for medical reasons: Yes Substance Use Type: Marijuana Currently Displaying Signs/Symptoms of Drug Intoxication Withdrawal: No Do you feel safe in your current relationship?: Yes Advance Directives: No Advance Directives Information Provided: No Do you have a plan to hurt others: No Plan Recently lost weight without trying: No Patient : No Current occupational status: employed Meds Allergies Allergy/AdvReac Type Severity Reaction Status Date / Time cat dander [CAT DANDER] Allergy Intermediate ITCHY Verified 01/16/24 09:49 WATERY EYES dog dander [DOGS] Allergy Intermediate ITCHY Verified 01/16/24 09:49 WATERY EYES GRASS Allergy Intermediate ITCHY, Uncoded 09/30/21 11:36 HIVES Home Medications ?Medication ?Instructions ?Recorded ?Confirmed ?Last Taken ?Type cetirizine 10 mg tablet (Zyrtec) 10 mg PO DAILY 01/16/24 01/16/24 01/15/24 History ibuprofen 200 mg tablet 400 mg PO Q8H PRN Pain 01/16/24 01/16/24 Unknown History semaglutide (weight loss) 0.5 0.5 mg subcut TU@0900 01/16/24 01/16/24 01/11/24 History mg/0.5 mL subcutaneous pen injector (Ann) Physical Exam 2 Vital Signs and Narrative: Vital Signs: Last Vital Signs Temp 97.9 F 01/16/24 09:47 Pulse 113 H 01/16/24 14:25 Resp 22 H 01/16/24 14:25 BP 114/53 L 01/16/24 14:25 Pulse Ox 98 01/16/24 14:25 O2 Del Method Room Air 01/16/24 12:14 BMI result Body Mass Index 38.3 General: AOx3, no acute distress Resp: Mild bilateral wheezing. Speaking with a raspy voice. Constant dry cough. CVS: S1, S2, RRR GI: +BS, NT, no distention Skin: Warm, dry Neuro: Cranial nerves II-XII grossly intact bilaterally. Motor grossly intact bilaterally Extremities: No edema Psych: Appropriate affect Results Labs 01/16/24 10:04 01/16/24 10:04 Labs: Laboratory Results - last 24 hr 01/16/24 10:04 MCV 86.9 MCH 30.2 MCHC 34.8 RDW 12.7 Plt Count 266 MPV 11.1 Immature Gran % (Auto) 0.3 Neut % (Auto) 55.6 Lymph % (Auto) 34.3 [place] % (Auto) 5.5 Eos % (Auto) 4.0 Baso % (Auto) 0.3 Lymph # (Auto) 2.6 [place] # (Auto) 0.4 Eos # (Auto) 0.3 Baso # (Auto) 0.0 Abs Immat Gran (auto) 0.02 Absolute Neuts (auto) 4.3 Absolute Nucleated RBC 0.000 Nucleated RBC % (auto) 0.0 Anion Gap 14 Estim Creat Clear Calc 101.7 Estimated GFR > 60 Random Glucose 96 Calcium 9.9 Magnesium 2.0 Total Bilirubin 0.3 Direct Bilirubin 0.1 AST 19 ALT 14 Alkaline Phosphatase 84 Total Protein 7.4 Albumin 4.2 Influenza Type A (PCR) NEGATIVE Influenza Type B (PCR) NEGATIVE RSV RNA Qual (PCR) NEGATIVE SARS-CoV-2 RNA (RT-PCR) NEGATIVE Imaging Radiologist's Impressions: Impressions Chest X-Ray 01/16/24 10:30 IMPRESSION: No acute cardiopulmonary process. Electronically signed by: Florin Jones MD 01/16/2024 10:52 AM EDT RP Assessment and Plan (1) Acute asthma exacerbation: Qualifiers: Asthma persistence: intermittent Asthma severity: mild Qualified Code(s): J45.21 - Mild intermittent asthma with (acute) exacerbation Status: Acute Plan Pt is a 33-year-old female with a PMH significant for?mild intermittent asthma and seasonal allergies who presents to the ED with?wheezing, SOB and nonproductive cough since last night. Pt will be admitted to the hospital under observation for treatment and further evaluation of acute asthma exacerbation requiring additional treatment with IV steroids and breathing treatments. Acute asthma exacerbation Pt with wheezing, SOB, PAIGE, non-productive cough, chest tightness associated with cough/deep breathing since last night Symptoms persist despite treatment in the ED Likely secondary to viral URI earlier in the week Will treat with Solu-Medrol, DuoNebs, guaifenesin Patient not hypoxic, not on supplemental O2 Monitor respiratory status Soft BP BP as low 98/35 Likely secondary to hypovolemia from reduced p.o. intake Will give IVF Seasonal allergies Loratadine daily Obesity class II Encourage weight loss Full Code Attending:?Dr. Andrade DVT Prophylaxis: Pt ambulatory, on observation Patient will be admitted to the hospital under observation for treatment and further evaluation of acute asthma exacerbation. Given that symptoms persist despite ED treatment, will need hospital-level care for administration of IV steroids and breathing treatments. Quality Stroke Does the patient have a stroke diagnosis?: No VTE Prior VTE?: No VTE Risk Level:: Medical - moderate - high VTE Device Contraindication: Treatment Not Indicated VTE Drug Contraindication: Treatment Not Indicated
[2024-01-16] MEDS: 0.9 % Sodium Chloride Flush 3 ML SYRINGE IVFLUSH (16:00)
[2024-01-16] MEDS: Lactated Ringers 1,000 ML 999 ML IV (16:00)
--- NOTE | 2024-01-16 17:47 | PHA.MEDREC ---
Addendum entered by Delaney Claudio RPh 01/16/24 17:52: MED REC REVIEWED BY MANPREET Original Note: Pharmacy Consult ? Medication Reconciliation Pharmacy has completed the medication reconciliation Spoke to pt to confirm.
[2024-01-16] MEDS: methylPREDNISolone Sod Succ 125 MG/2 ML VIAL 60 MG IVPUSH ×2 (18:26→23:51)
[2024-01-16] MEDS: guaiFENesin DM 200/20/10 ML 10 ML SYRUP PO (18:34)
[2024-01-16] MEDS: ondansetron HCL 4 MG/2 ML VIAL IVPUSH (20:23)
[2024-01-16] MEDS: Ibuprofen 600 MG TABLET PO (23:50)
[2024-01-17] MEDS: diphenhydrAMINE HCL 25 MG CAPSULE PO (00:16)
[2024-01-17 03:41] VITALS: BP 126/61; PULSE 79; RESP 16; TEMP 36.3; O2SAT 98
[2024-01-17] MEDS: methylPREDNISolone Sod Succ 125 MG/2 ML VIAL 60 MG IVPUSH (06:11)
[2024-01-17 07:46] VITALS: PULSE 79; RESP 16; O2SAT 97
[2024-01-17] MEDS: Albuterol/Iprat 2.5/0.5MG 3 ML AMPUL.NEB INHALE (07:46)
[2024-01-17] MEDS: Acetaminophen 325 MG TABLET 975 MG PO (07:55)
[2024-01-17] MEDS: Loratadine 10 MG TABLET PO (07:55)
[2024-01-17] MEDS: guaiFENesin DM 200/20/10 ML 10 ML SYRUP PO (07:55)
[2024-01-17] MEDS: 0.9 % Sodium Chloride Flush 3 ML SYRINGE IVFLUSH (07:56)
[2024-01-17 08:00] VITALS: BP 128/58; PULSE 93; RESP 16; TEMP 36.2; O2SAT 98
--- NOTE | 2024-01-17 10:50 | PM.DS ---
DS: Providers Provider Date of Service: 01/17/24 Date of admission: 01/16/24 15:41 Date of discharge: 01/17/24 Primary care physician: Jameson Tang MD DS: Diagnosis Discharge Diagnosis (1) Acute asthma exacerbation: Status: Acute DS: Summary Hospital Course Hospital Course: 33-year-old female with a PMH significant for?mild intermittent asthma and seasonal allergies who presents to the ED with?wheezing, SOB and nonproductive cough since last night. Patient reports developed URI type symptoms 5 days prior when she experienced mild nasal congestion and a sinus headache. Symptoms went away until last night she began experiencing constant nonproductive cough, wheezing, PAIGE, SOB, and chest tightness associated with cough and deep breathing. Symptoms were not alleviated by home inhaler, and patient does not have a home nebulizer. Also reports has not been eating or drinking much for the past few days. Denies fever, nausea, vomiting, abdominal pain. Patient states has not had an asthma exacerbation since she was a child. Admit for astma exacerbation. Hospital Course Admitted to general medical floor and started on pulse dose steroids and aggressive nebulizers. Over the course of 24 hours patient has improved dramatically and is requesting discharge. Exam correlates with subjective findings. At this point she is medically acceptable to be discharged on a prednisone taper and azithromycin for 3 days. She will follow up with the PCP next available. Time Attestation Discharge Coordination Time (in mins): 35 Quality: Safe Use of Opioids Does Pt have an Active Cancer Diagnosis on the Problem List?: No Quality: Stroke Does the patient have a stroke diagnosis?: No Physical Exam Vital Signs: Vital Signs: Last Vital Signs Temp 97.2 F 01/17/24 08:00 Pulse 93 01/17/24 08:00 Resp 16 01/17/24 08:00 BP 128/58 L 01/17/24 08:00 Pulse Ox 98 01/17/24 08:00 O2 Del Method Room Air 01/17/24 08:00 BMI result Body Mass Index 39.9 Const: Other: Awake alert no acute distress Resp: Other: Clear to auscultation bilaterally minimal scattered expiratory wheezes at bases Cardio: Other: No S4; positive S1-S2; no S3 murmurs rubs or gallops GI: Other: Soft nontender nondistended normoactive bowel sounds Extrem: Other: No edema bilaterally DS: Data Data Completed and Pending Labs on day of discharge: Laboratory Results - last 24 hr 01/16/24 10:04 Influenza Type A (PCR) NEGATIVE Influenza Type B (PCR) NEGATIVE RSV RNA Qual (PCR) NEGATIVE SARS-CoV-2 RNA (RT-PCR) NEGATIVE Discharge Plan Discharge Anticipated Discharge Date/Time: 01/17/24 10:23 Patient Disposition: Home, Self-Care Discharge Diagnosis: Acute asthma exacerbation Referrals: Jameson Tang MD [Primary Care Provider] - 1 Week Discharge Medications: New prednisone 20 mg tablet See Rx Instructions .Route .COMPLEX Qty: 18 0RF Rx Instructions: 20 mg orally; 3 tabs daily for 3 days, 2 tabs daily for 3 days, 1 tab daily for 3 days azithromycin 500 mg tablet 500 mg PO DAILY 3 Days Qty: 3 0RF codeine-guaifenesin [Guaifenesin AC] 10-100 mg/5 mL liquid 10 ml PO Q4H PRN (Reason: cough) Qty: 180 0RF albuterol sulfate 90 mcg/actuation HFA aerosol inhaler 2 puff inhalation Q6H PRN (Reason: shortness of breath or wheezing) Qty: 8.5 0RF Continued Wegovy 0.5 mg/0.5 mL pen injector 0.5 mg subcut TU@0900 cetirizine [Zyrtec] 10 mg Tablet 10 mg PO DAILY ibuprofen 200 mg Tablet 400 mg PO Q8H PRN (Reason: Pain) Discharge Orders: Discharge Order (Routine); Ordered 01/17/24 Ordered By: Elan Andrade Diet: Advance to usual diet Activity on Discharge: As tolerated Stand Alone Forms: Patient Portal Discharge page, Work/School Release Print Language: Montserratian Care Plan Goals: Complete prednisone taper as outlined. Take azithromycin 1 tab daily for 3 days. Utilize albuterol inhaler as needed; Robitussin with codeine cough syrup for cough Health Concerns: If symptoms worsen or do not improve return Plan of Treatment: Follow up with the PCP next available Assessment: See discharge summary
--- NOTE | 2024-01-17 10:58 | MHC.CM.PN ---
MERRITT delivered. Patient lives in an apartment w/ 6YO daughter. Functionally independent. Has a CPAP but has not used in years. No services. PCP Jameson Tang No HCP. CM provided education and offered assistance. Patient declined. DP: Medically cleared for dc home self care. [place] [facility] [place] and will drive home. RN aware.
== END 2024-01-17 11:58 | disposition home or self-care (01) ==
LOC: HO.ED 15:05 → HO.EDOVER 16:03 → HO.S3 16:14
PROVIDERS: Physician Assistant; Admitting Provider Student in an Organized Health Care Education/Training Program; Emergency Provider Emergency Medicine; PCP Internal Medicine; Visit Provider Hospitalist
DX: J45.21 Mild intermittent asthma with (acute) exacerbation (principal); R51.9 Headache, unspecified; R05.9 Cough, unspecified; R09.81 Nasal congestion; R00.0 Tachycardia, unspecified; R06.82 Tachypnea, not elsewhere classified; J30.2 Other seasonal allergic rhinitis; E66.9 Obesity, unspecified; Z68.38 Body mass index [BMI] 38.0-38.9, adult; Z03.818 Encounter for observation for suspected exposure to other biological agents ruled out
CPT/HCPCS: 0241U; 36415; 71045; 80048; 80076; 83735; 85025; 94640; 96361; 96365; 96375; 96376; 99221; 99285; J2405; J2919; J3475; J7120

== ENCOUNTER → 2024-01-16 15:41 | Outpatient (BNV) | payer MEDICAID, SELFPAY | PROVIDERS: Admitting Provider Student in an Organized Health Care Education/Training Program; Emergency Provider Emergency Medicine; PCP Internal Medicine; Visit Provider Student in an Organized Health Care Education/Training Program | DX: J45.21 Mild intermittent asthma with (acute) exacerbation (principal) | CPT/HCPCS: 99222; 99239 ==

== ENCOUNTER 2024-02-24 09:51 | Emergency (ER) | payer MEDICAID, SELFPAY ==
--- NOTE | ~2024-02-24 | XR_ITS ---
EXAMINATION: XR ANKLE, RIGHT XR FOOT, RIGHT CLINICAL INFORMATION: Inferior right ankle pain and dorsal foot pain following a fall. COMPARISON: No prior study available for comparison. TECHNIQUE: AP, oblique, and lateral views of the right ankle and foot. FINDINGS: Right ankle: Mild circumferential soft tissue swelling. No acute fracture or dislocation. The ankle mortise is maintained. No joint space narrowing or marginal osteophytes. No talar osteochondral lesion. No abnormal soft tissue calcification. Right foot: No acute fracture or dislocation. Normal tarsal alignment. No joint space narrowing or marginal osteophytes. No osseous erosion. No abnormal soft tissue calcification. XR/XR foot RT 2V IMPRESSION: Right ankle: Mild circumferential soft tissue swelling without acute osseous body. Right foot: Unremarkable examination. Electronically signed by: Yonis Schafer MD 02/24/2024 10:46 AM LARRY
--- NOTE | ~2024-02-24 | XR_ITS ---
EXAMINATION: XR ANKLE, RIGHT XR FOOT, RIGHT CLINICAL INFORMATION: Inferior right ankle pain and dorsal foot pain following a fall. COMPARISON: No prior study available for comparison. TECHNIQUE: AP, oblique, and lateral views of the right ankle and foot. FINDINGS: Right ankle: Mild circumferential soft tissue swelling. No acute fracture or dislocation. The ankle mortise is maintained. No joint space narrowing or marginal osteophytes. No talar osteochondral lesion. No abnormal soft tissue calcification. Right foot: No acute fracture or dislocation. Normal tarsal alignment. No joint space narrowing or marginal osteophytes. No osseous erosion. No abnormal soft tissue calcification. XR/XR ankle RT 2V IMPRESSION: Right ankle: Mild circumferential soft tissue swelling without acute osseous body. Right foot: Unremarkable examination. Electronically signed by: Yonis Schafer MD 02/24/2024 10:46 AM LARRY
[2024-02-24 09:54] VITALS: BP 111/48; PULSE 102; RESP 16; TEMP 36.8; O2SAT 99; BMI 37.5
--- NOTE | 2024-02-24 11:45 | ED_ITS ---
HPI - Fall General Chief Complaint: Fall Stated Complaint: Fall R ankle pain Time Seen by Provider: 02/24/24 10:45 Source: patient Mode of arrival: ambulatory Limitations: no limitations History of Present Illness ED Provider: Nicolasa Shepard NP HPI Narrative: Patient is a 33-year-old female who presents emergency department for evaluation, she reports a mechanical slip and fall on the ice yesterday morning resulting in pain to her right lateral ankle. She states that in October of 2023 she sprained this ankle as well. Pain is worse with weight-bearing and dorsiflexion/plantar flexion of the foot. Denies numbness tingling or cold sensation to the foot. There was no associated head strike or loss of consciousness with this fall. Related Data Home Medications ?Medication ?Instructions ?Recorded ?Confirmed cetirizine 10 mg tablet (Zyrtec) 10 mg PO DAILY 01/16/24 01/16/24 ibuprofen 200 mg tablet 400 mg PO Q8H PRN Pain 01/16/24 01/16/24 semaglutide (weight loss) 0.5 0.5 mg subcut TU@0900 01/16/24 01/16/24 mg/0.5 mL subcutaneous pen injector (Wegovy) Previous Rx's ?Medication ?Instructions ?Recorded albuterol sulfate 90 mcg/actuation 2 puff inhalation Q6H PRN 01/17/24 aerosol inhaler shortness of breath or wheezing #8.5 grams azithromycin 500 mg tablet 500 mg PO DAILY 3 days #3 tabs 01/17/24 codeine 10 mg-guaifenesin 100 mg/5 10 ml PO Q4H PRN cough #180 mL 01/17/24 mL oral liquid (Guaifenesin AC) prednisone 20 mg tablet See Rx Instructions .Route 01/17/24 .COMPLEX #18 tabs Allergies Allergy/AdvReac Type Severity Reaction Status Date / Time cat dander [CAT DANDER] Allergy Intermediate ITCHY Verified 02/24/24 09:56 WATERY EYES dog dander [DOGS] Allergy Intermediate ITCHY Verified 02/24/24 09:56 WATERY EYES GRASS Allergy Intermediate ITCHY, Uncoded 09/30/21 11:36 HIVES Review of Systems Review of Systems: Yes all other systems are reviewed and are negative PMFSH Past Medical History Attestation statement: The following information was validated with the patient. Source: old records reviewed Medical History Asthma H/O eye muscle disorder Post depression Surgical History Hx of breast reduction, elective Hx of tonsillectomy Social History Social History (Updated 02/22/23 @ 15:03 by Dalila Javier CMA) Household Members: Family Housing: House Alcohol intake: current Alcohol intake frequency: holidays/special occasions only Patient Tobacco Use Status: Never used Tobacco Substance Use Type: Marijuana Advance Directives: No Advance Directives Information Provided: No Do you have a plan to hurt others: No Plan service: No Current occupational status: employed Physical Exam Vital Signs: Vital Signs: Last Vital Signs Temp 98.2 F 02/24/24 09:54 Pulse 102 H 02/24/24 09:54 Resp 16 02/24/24 09:54 BP 111/48 L 02/24/24 09:54 Pulse Ox 99 02/24/24 09:54 O2 Del Method Room Air 02/24/24 09:54 BMI result Body Mass Index 37.5 Appearance: Alert.?Oriented to person, place and time. No acute distress.?Normal affect. CVS: Heart sounds normal. Normal heart rate and rhythm.? Pulses normal.?? Respiratory: No respiratory distress.? Lung sounds clear to auscultation bilaterally?? Skin: Skin warm and dry.? Normal skin color.? Extremities: Localized swelling to the right lateral malleolus with tenderness upon palpation.? No calf ttp. Mild decreased AROM to the right ankle particularly with plantar and dorsiflexion, otherwise Full range of motion to bilateral upper and lower extremities. 2+ DP/PT pulse, 2+ radial pulse bilaterally. Neuro: Moves all extremities spontaneously. Sensation intact bilaterally. CN II- XII intact. No focal neuro deficits. Medical Decision Making Medical Decision Making MDM Narrative: Patient is a 33-year-old female who Presents to the emergency department for evaluation after mechanical trip and fall with subsequent right ankle pain as per HPI. XR was obtained no evidence of acute fracture dislocation. Symptoms at this time are consistent with a sprain. We discussed conservative treatment, worrisome signs and symptoms that would warrant re-evaluation. She was placed in an Aircast. Offered crutches she however has some at home from her recent sprain and does not want another set. She is ambulatory but with a slightly antalgic gait. Outpatient follow-up with primary care provider. All questions answered Differential Diagnosis Differential Diagnoses: The differential diagnosis associated with the presentation includes (See narrative above) Independent Interpretation I performed an independent interpretation of an: Plain X-Ray (No acute fracture) Radiology Impression Discussion of test interpretation with radiology: I have reviewed the radiologist's reading. Radiologist Impression: XR/XR ankle RT 2V IMPRESSION: Right ankle: Mild circumferential soft tissue swelling without acute osseous body. Right foot: Unremarkable examination. External Record Review External record reviewed: Outpatient record Prescription Management I considered prescription management with: Pain Medication (Acetaminophen/ibuprofen) Discharge Plan Discharge Clinical Impression: Right ankle sprain Patient Disposition: Home, Self-Care Instructions: Ankle Sprain (ED), How to Use an Elastic Bandage (ED), R.I.C.E. Treatment (ED) Prescriptions: No Action Wegovy 0.5 mg/0.5 mL pen injector 0.5 mg subcut TU@0900 cetirizine [Zyrtec] 10 mg Tablet 10 mg PO DAILY ibuprofen 200 mg Tablet 400 mg PO Q8H PRN (Reason: Pain) prednisone 20 mg tablet See Rx Instructions .Route .COMPLEX Qty: 18 0RF Rx Instructions: 20 mg orally; 3 tabs daily for 3 days, 2 tabs daily for 3 days, 1 tab daily for 3 days azithromycin 500 mg tablet 500 mg PO DAILY 3 Days Qty: 3 0RF codeine-guaifenesin [Guaifenesin AC] 10-100 mg/5 mL liquid 10 ml PO Q4H PRN (Reason: cough) Qty: 180 0RF albuterol sulfate 90 mcg/actuation HFA aerosol inhaler 2 puff inhalation Q6H PRN (Reason: shortness of breath or wheezing) Qty: 8.5 0RF Referrals: Jameson Tang MD [Primary Care Provider] - Print Language: Malian
[2024-02-24 12:01] VITALS: BP 115/73; PULSE 85; RESP 16; TEMP 36.8; O2SAT 99
== END 2024-02-24 12:02 | disposition home or self-care (01) ==
PROVIDERS: Emergency Provider Emergency Medicine Emergency Medical Services; PCP Internal Medicine
DX: S93.401A Sprain of unspecified ligament of right ankle, initial encounter (principal); W00.2XXA Other fall from one level to another due to ice and snow, initial encounter; Y93.01 Activity, walking, marching and hiking; Y92.9 Unspecified place or not applicable; Y99.9 Unspecified external cause status
CPT/HCPCS: 73600; 73620; 99282; 99283

== ENCOUNTER 2024-04-29 07:50 | Emergency (ER) | payer MEDICAID, SELFPAY ==
[2024-04-29 08:02] VITALS: BP 93/49; PULSE 89; RESP 19; TEMP 36.6; O2SAT 98; BMI 34.0
--- NOTE | 2024-04-29 08:15 | ED_ITS ---
HPI - Nausea/Vomiting/Diarrhea General Chief complaint: Nausea/Vomiting/Diarrhea Stated complaint: diarrhea vomiting Time Seen by Provider: 04/29/24 08:14 Source: patient and RN notes reviewed Mode of arrival: ambulatory Limitations: no limitations History of Present Illness ED Provider: Kimberly Connolly PA-C HPI Narrative: This is a 33-year-old female who presents to the emergency department with complaints of acute nausea, vomiting, and diarrhea for the last 2 days. Patient reports that since , she has had watery like stool. She states that she has been unable to tolerate p.o. secondary to nausea and vomiting. Denies any sick contacts with similar symptoms. Denies any fevers. She does endorse chills. No chest pain, shortness for breath. She does endorse cramping like sensation in her abdomen prior to diarrhea episode however states no current cramping at this time. No abdominal surgeries. Denies chance of . No other complaints or concerns at this time. MD elicited complaint: nausea, vomiting and diarrhea Onset (ago): day(s) Description of vomiting: watery Description of diarrhea: watery Associated nausea: Yes Associated abdominal pain: No Location of pain: none Radiation: diffuse Pain consistency: constant Quality: cramping Exacerbating factors: none Relieving factors: none Associated symptoms: denies other symptoms Related Data Home Medications ?Medication ?Instructions ?Recorded ?Confirmed cetirizine 10 mg tablet (Zyrtec) 10 mg PO DAILY 01/16/24 01/16/24 ibuprofen 200 mg tablet 400 mg PO Q8H PRN Pain 01/16/24 01/16/24 semaglutide (weight loss) 0.5 0.5 mg subcut TU@0900 01/16/24 01/16/24 mg/0.5 mL subcutaneous pen injector (Wegovy) Previous Rx's ?Medication ?Instructions ?Recorded albuterol sulfate 90 mcg/actuation 2 puff inhalation Q6H PRN 01/17/24 aerosol inhaler shortness of breath or wheezing #8.5 grams azithromycin 500 mg tablet 500 mg PO DAILY 3 days #3 tabs 01/17/24 codeine 10 mg-guaifenesin 100 mg/5 10 ml PO Q4H PRN cough #180 mL 01/17/24 mL oral liquid (Guaifenesin AC) prednisone 20 mg tablet See Rx Instructions .Route 01/17/24 .COMPLEX #18 tabs ondansetron 4 mg disintegrating 4 mg PO Q6H PRN nausea and 04/29/24 tablet vomiting #14 tabs Allergies Allergy/AdvReac Type Severity Reaction Status Date / Time cat dander [CAT DANDER] Allergy Intermediate ITCHY Verified 04/29/24 08:03 WATERY EYES dog dander [DOGS] Allergy Intermediate ITCHY Verified 04/29/24 08:03 WATERY EYES GRASS Allergy Intermediate ITCHY, Uncoded 04/29/24 08:03 HIVES Review of Systems 2 Review of Systems: Yes all other systems are reviewed and are negative Constitutional: Constitutional: Reports as per HPI Gastrointestinal: Gastrointestinal: Reports nausea PMFSH Past Medical History Medical History Asthma H/O eye muscle disorder Post depression Surgical History Hx of breast reduction, elective Hx of tonsillectomy Social History Social History (Updated 02/22/23 @ 15:03 by Dalila Javier CMA) Household Members: Family Housing: House Alcohol intake: never Patient Tobacco Use Status: Never used Tobacco Smoked in Last 30 Days: No Use of substances other than those prescribed or required for medical reasons: No Substance Use Type: Marijuana Advance Directives: No Advance Directives Information Provided: No Do you have a plan to hurt others: No Plan Patient : No service: No Current occupational status: employed Physical Exam 2 Vital Signs: Vital Signs: Last Vital Signs Temp 97.8 F 04/29/24 14:45 Pulse 70 04/29/24 14:45 Resp 13 04/29/24 14:45 BP 110/56 L 04/29/24 14:45 Pulse Ox 98 04/29/24 14:45 O2 Del Method Room Air 04/29/24 14:45 BMI result Body Mass Index 34.0 Const: General: cooperative, comfortable and no acute distress O rientation/consciousness: patient oriented x3 Limitations: no limitations HEENT: Head: Yes normal to inspection, Yes normocephalic and Yes atraumatic Ears: hearing grossly normal bilaterally General nose exam: Normal external nose present Face and sinus: Yes normal facial exam Mouth: Normal oral and palatal mucosa present, oropharynx normal and moist mucous membranes Throat: Yes posterior oropharynx normal Eyes: General: appearance normal, both eyes and all related structures E yelids: Yes eyelids normal Conjunctivae: conjunctivae normal Sclerae: s clerae normal Pupils: Equal, round and reactive pupils present EOM: EOMs intact bilaterally Neck: Neck: Yes normal visual inspection, Yes full ROM and Yes no lymphadenopathy Lymphatic: no lymphadenopathy noted Chest: Chest palpation & inspection: normal inspection of the chest Resp: Effort & Inspection: normal respiratory effort and able to speak in complete sentences Auscultation: clear to auscultation bilaterally, no crackles, no rales, no rhonchi and no wheezes Cardio: Rate: regular rate Rhythm: regular rhythm Heart sounds: S1 normal heart sound present and S2 normal heart sound present GI: Other: Abdomen is soft, nontender, nondistended Inspection: Yes normal to inspection Skin: General skin exam: no rashes or lesions noted Trauma: no lacerations or abrasions Wounds: no wounds Neuro: General: patient oriented x3 and moves all extremities Cranial nerves: Yes Equal, round and reactive pupils present Extrem: General: Yes normal to inspection Right upper extremity: normal to inspection Left upper extremity: normal to inspection Right lower extremity: normal to inspection Left lower extremity: normal to inspection Course Reevaluation(s) Reevaluation #1: Patient feeling much better after receiving IV fluids. She was able to collect a stool sample here in the department. Review of labs reveal no acute leukocytosis, stable H&H, chemistry with no significant electrolyte derangement. No evidence of ADRIANA. She is not . Negative flu, COVID, RSV. Patient does have mild headache and body aches, will treat with IV Tylenol. Will continue to monitor and p.o. challenge. Time: 12:16 Reevaluation #2: Feeling much better, requesting second dose of zofran prior to departure. Able to tolerate PO in department. Given return precautions. Pt stable for d/c. Medications Administered Discontinued Medications Generic Name Dose Route Start Last Admin Trade Name Freq PRN Reason Stop Dose Admin Lactated Ringer's 2,000 mls @ 999 mls/hr 04/29/24 08:28 04/29/24 11:04 Lr IV 04/29/24 10:28 Infused .Q2H1M ONE Infusion Acetaminophen 1,000 mg in 100 mls @ 400 mls/hr 04/29/24 12:10 04/29/24 12:39 Ofirmev IV 04/29/24 12:24 Infused ONCE ONE Infusion Ondansetron HCl 4 mg 04/29/24 08:29 04/29/24 09:03 Ondansetron Hcl 4 Mg/2 Ml Vial IVPUSH 04/29/24 08:30 4 mg ONCE ONE Administration Ondansetron HCl 4 mg 04/29/24 14:02 04/29/24 14:23 Ondansetron Hcl 4 Mg/2 Ml Vial IVPUSH 04/29/24 14:03 4 mg ONCE ONE Administration Medical Decision Making Medical Decision Making [facility] Narrative: This is a 33-year-old female who presents emergency department with concerns for nausea, vomiting, and diarrhea for the last 2 days. On arrival, patient mildly hypo tensive at 93/49, likely secondary to dehydration. She was afebrile, nontoxic appearing, speaking in full sentences under no acute distress. Abdomen is soft and nontender. Patient has had multiple episodes of nausea, vomiting, diarrhea for the last 2 days. She has no chest pain or shortness for breath. Symptoms are likely viral in nature. Will obtain labs to rule out any electrolyte derangement, will order CBC for evaluation of leukocytosis or leukopenia. Will also medicate with 2 L LR, Zofran 4 mg. She denies any chance of . We will continue to closely monitor pending overall workup. Differential Diagnosis Differential Diagnoses: The differential diagnosis associated with the presentation includes Viral gastroenteritis, gastritis, electrolyte derangement, dehydration, ADRIANA Admission/Observation Consideration of admission/observation: Escalation of care including admission/observation considered Lab Data [facility] Lab Attestation statement: I reviewed the patient's lab results. 04/29/24 08:59 04/29/24 08:59 Labs: Lab Results 04/29/24 04/29/24 04/29/24 Range/Units 08:58 08:59 11:02 WBC 10.3 (4.8-10.8) X10*3/uL RBC 5.20 (4.20-5.50) X10*6/uL Hgb 15.8 (12.0-16.0) g/dl Hct 46.4 (37.0-47.0) % MCV 89.2 (80.0-98.0) fL MCH 30.4 (27.0-33.0) pg MCHC 34.1 (31.0-35.0) g/dl RDW 13.4 (11.0-16.0) % Plt Count 274 (160-400) X10*3/uL MPV 11.1 (9.4-12.3) fL Immature Gran % (Auto) 0.1 (0.0-0.4) % Neut % (Auto) 73.1 H (45-73) % Lymph % (Auto) 17.6 L (20-40) % Armstrong % (Auto) 4.9 (2-11) % Eos % (Auto) 4.2 H (0-4) % Baso % (Auto) 0.1 (0-2) % Lymph # (Auto) 1.8 (1.2-4.9) X10*3/uL Armstrong # (Auto) 0.5 (0.1-1.2) X10*3/uL Eos # (Auto) 0.4 (0.0-0.4) X10*3/uL Baso # (Auto) 0.0 (0.0-0.2) X10*3/uL Abs Immat Gran (auto) 0.01 (0.00-0.03) X10*3/uL Absolute Neuts (auto) 7.6 (2.0-8.3) x10*3/uL Absolute Nucleated RBC 0.000 (0.0-0.012) X10*3/uL Nucleated RBC % (auto) 0.0 (0.0-0.2) /100WBC Sodium 140 (135-145) mmol/L Potassium 4.0 (3.3-5.1) mmol/L Chloride 109 H (96-108) mmol/L Carbon Dioxide 23 (22-29) mmol/L Anion Gap 12 (12-20) BUN 13 (9-16) mg/dL Creatinine 0.79 (0.5-1.4) mg/dL Estim Creat Clear Calc 96.2 Estimated GFR > 60 Random Glucose 77 (60-115) mg/dL Calcium 9.6 (8.4-10.2) mg/dL Magnesium 2.1 (1.6-2.6) mg/dL Total Bilirubin 0.7 (0.0-1.0) mg/dL Direct Bilirubin 0.2 (0.0-0.5) mg/dL AST 18 (5-31) U/L ALT 14 (0-31) U/L Alkaline Phosphatase 86 (39-117) U/L Total Protein 7.9 (6.5-8.0) g/dL Albumin 4.5 (3.5-5.0) g/dL Lipase 33 (8-78) U/L Beta HCG, Quant < 2 mIU/mL Stl C. cayetanensis PCR Not Detected (Not Detect.) Stool Rotavirus A PCR Not Detected (Not Detect.) Stl Adenov F 40/41 PCR Not Detected (Not Detect.) Stool Astrovirus (PCR) Not Detected (Not Detect.) Stool Campylobacter PCR Not Detected (Not Detect.) Stool Cryptosporidium PCR Not Detected (Not Detect.) Stl Sh Tox Pr E STEC PCR Not Detected (Not Detect.) Stool E coli O157 PCR Not applicable (Not Detect.) Stl Enterotoxigenic E PCR Not Detected (Not Detect.) Stool EPEC (PCR) Not Detected (Not Detect.) Stool EAEC (PCR) Not Detected (Not Detect.) Stl E. histolytica PCR Not Detected (Not Detect.) Stool Giardia Lamblia PCR Not Detected (Not Detect.) Stl P. shigelloides PCR Not Detected (Not Detect.) Stool Salmonella PCR Not Detected (Not Detect.) Stool Sapovirus (PCR) Not Detected (Not Detect.) Stl Shigella/EIEC PCR Not Detected (Not Detect.) St Y.enterocolitica PCR Not Detected (Not Detect.) Stool Vibrio (PCR) Not Detected (Not Detect.) Stl Vibrio cholerae PCR Not Detected (Not Detect.) Stl Norovirus GI/GII PCR Not Detected (Not Detect.) C. difficile Tox B Gene NEGATIVE (Negative) Influenza Type A (PCR) NEGATIVE (Negative) Influenza Type B (PCR) NEGATIVE (Negative) RSV RNA Qual (PCR) NEGATIVE (Negative) SARS-CoV-2 RNA (RT-PCR) NEGATIVE (Negative) Radiology Impression Discussion of test interpretation with radiology: I have reviewed the radiologist's reading. External Record Review External record reviewed: Inpatient record, Office record, Outpatient record, Prior outpatient labs, Prior outpatient radiology, Primary care record and Outside ED record Discharge Plan Discharge Clinical Impression: Nausea vomiting and diarrhea Patient Disposition: Home, Self-Care Instructions: Acute Nausea and Vomiting (ED), Acute Diarrhea (ED) Additional Instructions: You were seen in the emergency department due to nausea vomiting and diarrhea. You likely have a virus causing you to have the symptoms. Please stick to a bland diet, avoid spicy or fried foods. Stick to a diet consisting of bananas, rice, applesauce, toast for the next several days. Please advance your diet as tolerated. Radha suman can also help with your symptoms. I am prescribing you Zofran, this is a nausea medication, take only as needed for nausea and vomiting. If any new or worsening symptoms occur including but not limited to severe chest pain, shortness of breath, severe abdominal pain, please seek emergent care. Your stool culture take several days for it to returned, you may check the portal or call the emergency room for results. Prescriptions: New ondansetron 4 mg tablet,disintegrating 4 mg PO Q6H PRN (Reason: nausea and vomiting) Qty: 14 0RF No Action Wegovy 0.5 mg/0.5 mL pen injector 0.5 mg subcut TU@0900 cetirizine [Zyrtec] 10 mg Tablet 10 mg PO DAILY ibuprofen 200 mg Tablet 400 mg PO Q8H PRN (Reason: Pain) prednisone 20 mg tablet See Rx Instructions .Route .COMPLEX Qty: 18 0RF Rx Instructions: 20 mg orally; 3 tabs daily for 3 days, 2 tabs daily for 3 days, 1 tab daily for 3 days azithromycin 500 mg tablet 500 mg PO DAILY 3 Days Qty: 3 0RF codeine-guaifenesin [Guaifenesin AC] 10-100 mg/5 mL liquid 10 ml PO Q4H PRN (Reason: cough) Qty: 180 0RF albuterol sulfate 90 mcg/actuation HFA aerosol inhaler 2 puff inhalation Q6H PRN (Reason: shortness of breath or wheezing) Qty: 8.5 0RF Stand Alone Forms: Work/School Release Interventions: ED Discharge Assessment Last Done: 04/29/24 14:45 Discharge Date/Time: 04/29/24 14:45 Print Language: Macanese
[2024-04-29] MEDS: Lactated Ringers 2,000 ML 999 ML IV (09:02)
[2024-04-29] MEDS: ondansetron HCL 4 MG/2 ML VIAL IVPUSH ×2 (09:03→14:23)
[2024-04-29 09:05] LABS: MANUAL DIFF FLAG NO
[2024-04-29 09:18] LABS: Basophils Percent Auto 0.1 % (0-2); Eosinophils Absolute Auto 0.4 X10*3/uL (0.0-0.4); Eosinophils Percent Auto 4.2 % (0-4); Hematocrit 46.4 % (37.0-47.0); Hemoglobin 15.8 g/dl (12.0-16.0); Imm Gran Abs Auto 0.01 X10*3/uL (0.00-0.03); Imm Gran Pct Auto 0.1 % (0.0-0.4); Lymphocytes Absolute Auto 1.8 X10*3/uL (1.2-4.9); Lymphocytes Percent Auto 17.6 % (20-40); Mean Corpuscular HGB Conc 34.1 g/dl (31.0-35.0); Mean Corpuscular Hemoglobin 30.4 pg (27.0-33.0); Mean Corpuscular Volume 89.2 fL (80.0-98.0); Mean Platelet Volume 11.1 fL (9.4-12.3); Monocytes Absolute Auto 0.5 X10*3/uL (0.1-1.2); Monocytes Percent Auto 4.9 % (2-11); Neutrophils Absolute Auto 7.6 x10*3/uL (2.0-8.3); Neutrophils Percent Auto 73.1 % (45-73); Platelet Count 274 X10*3/uL (160-400); Red Cell Distribution Width 13.4 % (11.0-16.0); White Blood Count 10.3 X10*3/uL (4.8-10.8)
[2024-04-29 09:21] LABS: Alanine Aminotransferase 14 U/L (0-31); Albumin Level 4.5 g/dL (3.5-5.0); Alkaline Phosphatase 86 U/L (39-117); Anion Gap 12 (12-20); Aspartate Amino Transferase 18 U/L (5-31); Bilirubin Direct 0.2 mg/dL (0.0-0.5); Bilirubin Total 0.7 mg/dL (0.0-1.0); Blood Urea Nitrogen 13 mg/dL (9-16); Calcium 9.6 mg/dL (8.4-10.2); Carbon Dioxide 23 mmol/L (22-29); Chloride 109 mmol/L (96-108); Creatinine Clr Calc Pharmacy 96.2; Estimated Glomerular Filt Rate > 60; Glucose Random 77 mg/dL (60-115); Lipase 33 U/L (8-78); Magnesium 2.1 mg/dL (1.6-2.6); Sodium 140 mmol/L (135-145); Total Protein 7.9 g/dL (6.5-8.0)
[2024-04-29 09:28] LABS: HCG Quantitative < 2 mIU/mL
[2024-04-29 09:46] LABS: Influenza A PCR NEGATIVE (Negative); Influenza B PCR NEGATIVE (Negative); Resp Syncy Virus RNA Qual PCR NEGATIVE (Negative); SARS COV2 PCR INHOUSE NEGATIVE (Negative)
[2024-04-29 10:13] VITALS: BP 110/56; PULSE 70; RESP 13; TEMP 36.6; O2SAT 98
[2024-04-29] MEDS: Acetaminophen 1,000 MG/100 ML PIGGYBACK 400 MG IV (12:24)
[2024-04-29 12:54] LABS: CDiff Gene PCR NEGATIVE (Negative)
[2024-04-29 14:40] LABS: Adenovirus F 40/41 Not Detected (Not Detect.); Astrovirus Not Detected (Not Detect.); Campylobacter Not Detected (Not Detect.); Cryptosporidium Not Detected (Not Detect.); Cyclospora cayetanensis Not Detected (Not Detect.); E. coli EAEC Not Detected (Not Detect.); E. coli EPEC Not Detected (Not Detect.); E. coli ETEC Not Detected (Not Detect.); E. coli STEC Not Detected (Not Detect.); Entamoeba histolytica Not Detected (Not Detect.); Giardia lamblia Not Detected (Not Detect.); Norovirus GI/GII Not Detected (Not Detect.); Plesiomonas shigelloides Not Detected (Not Detect.); Rotavirus A Not Detected (Not Detect.); Salmonella Not Detected (Not Detect.); Sapovirus Not Detected (Not Detect.); Shigella sp./EIEC Not Detected (Not Detect.); Vibrio Not Detected (Not Detect.); Vibrio Cholerae Not Detected (Not Detect.); Yersinia enterocolitica Not Detected (Not Detect.)
[2024-04-29 14:45] VITALS: BP 110/56; PULSE 70; RESP 13; TEMP 36.6; O2SAT 98
== END 2024-04-29 14:45 | disposition home or self-care (01) ==
PROVIDERS: Physician Assistant Medical; Emergency Provider Emergency Medicine; PCP Internal Medicine
DX: R11.2 Nausea with vomiting, unspecified (principal); R19.7 Diarrhea, unspecified; J45.909 Unspecified asthma, uncomplicated; F12.90 Cannabis use, unspecified, uncomplicated; Z03.818 Encounter for observation for suspected exposure to other biological agents ruled out; Z79.899 Other long term (current) drug therapy
CPT/HCPCS: 0241U; 36415; 80048; 80076; 83690; 83735; 84702; 85025; 87493; 87507; 96361; 96374; 96375; 96376; 99284; J0131; J2405; J7120

== ENCOUNTER 2024-06-23 18:59 | Emergency (ER) | payer MEDICAID, SELFPAY ==
[2024-06-23 19:08] VITALS: BP 105/45; PULSE 78; RESP 20; TEMP 36.4; O2SAT 98; BMI 33.6
--- NOTE | 2024-06-23 19:13 | ED_ITS ---
HPI - General Adult General Chief complaint: Nausea/Vomiting/Diarrhea Stated complaint: Flu sypmtoms Time Seen by Provider: 06/24/24 01:39 Source: patient Mode of arrival: ambulatory Limitations: no limitations History of Present Illness ED Provider: Dr. Rolan Hartman HPI narrative: 33-year-old female asthma presents for evaluation of chills, rhinorrhea, productive cough, shortness of breath, nausea vomiting, diarrhea since Wednesday06/19/2024 (5 days prior to evaluation). Patient states she had too numerous episodes of vomiting and too numerous episodes of diarrhea daily to count. She states she has been feeling lightheaded, dizzy and weak. She states she was had nothing to eat or drink in 5 days. 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 Positive review of systems included chills, rhinorrhea, cough occasionally productive of thick mucus, shortness of breath. She denied chest pain, dyspnea on exertion, bloody emesis or bloody diarrhea, frequency, urgency or dysuria. Patient has not been on antibiotics recently and she has not traveled outside of the country. Related Data Home Medications ?Medication ?Instructions ?Recorded ?Confirmed cetirizine 10 mg tablet (Zyrtec) 10 mg PO DAILY 01/16/24 01/16/24 ibuprofen 200 mg tablet 400 mg PO Q8H PRN Pain 01/16/24 01/16/24 semaglutide (weight loss) 0.5 0.5 mg subcut TU@0900 01/16/24 01/16/24 mg/0.5 mL subcutaneous pen injector (Yaogojerri) Previous Rx's ?Medication ?Instructions ?Recorded albuterol sulfate 90 mcg/actuation 2 puff inhalation Q6H PRN 01/17/24 aerosol inhaler shortness of breath or wheezing #8.5 grams azithromycin 500 mg tablet 500 mg PO DAILY 3 days #3 tabs 01/17/24 codeine 10 mg-guaifenesin 100 mg/5 10 ml PO Q4H PRN cough #180 mL 01/17/24 mL oral liquid (Guaifenesin AC) prednisone 20 mg tablet See Rx Instructions .Route 01/17/24 .COMPLEX #18 tabs ondansetron 4 mg disintegrating 4 mg PO Q6H PRN nausea and 04/29/24 tablet vomiting #14 tabs acetaminophen 500 mg tablet 1,000 mg (2 x 500 mg) PO Q6H PRN 06/24/24 (Tylenol Extra Strength) fever or pain #20 tabs diphenhydramine HCl 25 mg capsule 50 mg (2 x 25 mg) PO Q6H PRN 06/24/24 headache, nausea, vomiting #20 caps ibuprofen 400 mg tablet 400 mg PO TID PRN fever or pain 06/24/24 #30 tabs metoclopramide HCl 10 mg tablet 10 mg PO Q6H PRN nausea and 06/24/24 (Reglan) vomiting #14 tabs Allergies Allergy/AdvReac Type Severity Reaction Status Date / Time cat dander [CAT DANDER] Allergy Intermediate ITCHY Verified 06/23/24 19:10 WATERY EYES dog dander [DOGS] Allergy Intermediate ITCHY Verified 06/23/24 19:10 WATERY EYES GRASS Allergy Intermediate ITCHY, Uncoded 06/23/24 19:10 HIVES Review of Systems 2 Review of Systems: Yes all other systems are reviewed and are negative [facility] Past Medical History [facility] Narrative: Social history: She denies tobacco, alcohol and drug use. Medical History Asthma H/O eye muscle disorder Post depression Surgical History Hx of breast reduction, elective Hx of tonsillectomy Social History Social History (Updated 02/22/23 @ 15:03 by Dalila aJvier CMA) Household Members: Family Housing: House Unable to assess alcohol history related to: Unknown Alcohol intake: never Patient Tobacco Use Status: Never used Tobacco Smoked in Last 30 Days: No Use of substances other than those prescribed or required for medical reasons: No Substance Use Type: Marijuana Advance Directives: No Advance Directives Information Provided: No Do you have a plan to hurt others: No Plan Patient : No service: No Current occupational status: employed Physical Exam ED Vital Signs: Vital Signs - 24 hr 06/23/24 19:08 06/23/24 23:53 06/24/24 05:42 Temperature 97.6 F 98.3 F 98.4 F Pulse Rate 78 72 75 Respiratory Rate 20 16 16 Blood Pressure 105/45 L 105/55 L 104/52 L Pulse Oximetry 98 98 97 Oxygen Delivery Method Room Air Room Air Room Air 06/24/24 07:28 06/24/24 07:32 06/24/24 07:51 Temperature 98.3 F 98.3 F Pulse Rate 78 78 Respiratory Rate 16 16 Blood Pressure 93/38 L 99/36 L 99/36 L Pulse Oximetry 98 98 Oxygen Delivery Method Room Air Room Air BMI result Body Mass Index 33.6 Vital signs were normal Exam: General: Awake, alert in no distress Head: Normocephalic, atraumatic EENT: PERRL, Lids normal, sclera normal, conjunctiva normal, nose normal , ears normal, throat without erythema or exudates Neck: Supple, no adenopathy Lung: breath sounds symmetric, no wheezing, rales or rhonchi Chest: symmetric movement, nontender Heart: regular rate and rhythm, normal S1, S2 no murmurs or rubs Abdomen: soft, non-tender, nondistended, normal bowel sounds Back: no vertebral tenderness, no CVAT Extremities: no deformities, moves all extremities symmetrically Neuro: Awake, alert, oriented, normal speech, cranial nerves intact, moves all extremities symmetrically Psych: Pleasant, cooperative Course Course Course Narrative: RME, this is a rapid medical exam performed by Cl Alvarado please refer to primary provider for complete H&P- 33-year-old female presents for evaluation of nausea vomiting, diarrhea since Wednesday. She also endorses cough. She went to urgent care and was told to come to the ER because she was ?dehydrated. ? Plan for labs, urinalysis, and viral swabs. Medications Administered Discontinued Medications Generic Name Dose Route Start Last Admin Trade Name Kwasi PRN Reason Stop Dose Admin Diphenhydramine HCl 50 mg 06/24/24 07:08 06/24/24 07:14 Diphenhydramine Hcl 50 Mg/Ml Vial IVPUSH 06/24/24 07:09 50 mg ONCE STA Administration Sodium Chloride 1,000 mls @ 999 mls/hr 06/24/24 01:57 06/24/24 03:07 Ns IV 06/24/24 02:57 Infused .Q1H1M STA Infusion Ketorolac Tromethamine 15 mg 06/24/24 01:57 06/24/24 02:04 Ketorolac Tromethamine 15 Mg/Ml Vial IVPUSH 06/24/24 01:58 15 mg ONCE STA Administration Loperamide HCl 2 mg 06/24/24 07:19 06/24/24 07:25 Loperamide Hcl 2 Mg Capsule PO 06/24/24 07:20 2 mg ONCE ONE Administration Metoclopramide HCl 10 mg 06/24/24 07:08 06/24/24 07:14 Metoclopramide Hcl 10 Mg/2 Ml Vial IVPUSH 06/24/24 07:09 10 mg ONCE STA Administration Ondansetron HCl 4 mg 06/24/24 01:57 06/24/24 02:04 Ondansetron Hcl 4 Mg/2 Ml Vial IVPUSH 06/24/24 01:58 4 mg ONCE ONE Administration Medical Decision Making Medical Decision Making [facility] Narrative: 33-year-old female asthma presents for evaluation of chills, rhinorrhea, productive cough, shortness of breath, nausea vomiting, diarrhea since Wednesday06/19/2024 (5 days prior to evaluation). Patient states she had too numerous episodes of vomiting and too numerous episodes of diarrhea daily to count. She states she has been feeling lightheaded, dizzy and weak. She states she was had nothing to eat or drink in 5 days. 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 Vital signs were normal. Physical examination was unremarkable. Differential diagnosis: ?Includes but is not limited to viral syndrome, COVID- 19, influenza, RSV, gastroenteritis virus, anemia, electrolyte abnormalities, dehydration, volume depletion Course: Patient's laboratory evaluation was interpreted by me as follows: CBC was normal. CMP was normal. Lipase was normal. COVID-19, influenza and RSV tests were negative. Quantitative beta-hCG was below detectable limits Patient was presentation is consistent with viral gastroenteritis and volume depletion/dehydration. Patient was treated with normal saline IV x1 L, Zofran 4 mg IV and Toradol 15 mg IV 07:07 Patient states that her pain is better but she was still having nausea. She was given Reglan 10 mg IV and Benadryl 50 mg IV. She was also given Imodium 4 mg orally for her diarrhea. The patient most likely has a viral illness causing her symptoms. The patient was given prescription for Reglan 10 mg and Benadryl 50 mg take the other every 6 hours as needed for nausea and vomiting. She was also given prescriptions for Tylenol and ibuprofen for pain. She wa advised to take Imodium for her diarrhea. She was told you stay on a OPAL diet for the next 24 hours. She was given printed and verbal instructions and discharged home Admission/Observation Consideration of admission/observation: Escalation of care including admission/observation considered (Yes) Lab Data MDM Lab Attestation statement: I reviewed the patient's lab results. 06/23/24 19:26 06/23/24 19:26 Labs: Lab Results 06/23/24 Range/Units 19:26 WBC 9.1 (4.8-10.8) X10*3/uL RBC 4.88 (4.20-5.50) X10*6/uL Hgb 14.9 (12.0-16.0) g/dl Hct 42.5 (37.0-47.0) % MCV 87.1 (80.0-98.0) fL MCH 30.5 (27.0-33.0) pg MCHC 35.1 H (31.0-35.0) g/dl RDW 12.8 (11.0-16.0) % Plt Count 253 (160-400) X10*3/uL MPV 10.6 (9.4-12.3) fL Immature Gran % (Auto) 0.2 (0.0-0.4) % Neut % (Auto) 57.7 (45-73) % Lymph % (Auto) 31.1 (20-40) % [place] % (Auto) 6.1 (2-11) % Eos % (Auto) 4.7 H (0-4) % Baso % (Auto) 0.2 (0-2) % Lymph # (Auto) 2.8 (1.2-4.9) X10*3/uL [place] # (Auto) 0.6 (0.1-1.2) X10*3/uL Eos # (Auto) 0.4 (0.0-0.4) X10*3/uL Baso # (Auto) 0.0 (0.0-0.2) X10*3/uL Abs Immat Gran (auto) 0.02 (0.00-0.03) X10*3/uL Absolute Neuts (auto) 5.2 (2.0-8.3) x10*3/uL Absolute Nucleated RBC 0.000 (0.0-0.012) X10*3/uL Nucleated RBC % (auto) 0.0 (0.0-0.2) /100WBC Sodium 141 (135-145) mmol/L Potassium 3.6 (3.3-5.1) mmol/L Chloride 109 H (96-108) mmol/L Carbon Dioxide 27 (22-29) mmol/L Anion Gap 9 L (12-20) BUN 9 (9-16) mg/dL Creatinine 0.72 (0.5-1.4) mg/dL Estim Creat Clear Calc 104.9 Estimated GFR > 60 Random Glucose 87 (60-115) mg/dL Calcium 8.9 D (8.4-10.2) mg/dL Total Bilirubin 0.3 (0.0-1.0) mg/dL AST 19 (5-31) U/L ALT 15 (0-31) U/L Alkaline Phosphatase 75 (39-117) U/L Total Protein 6.7 (6.5-8.0) g/dL Albumin 4.0 (3.5-5.0) g/dL Lipase 29 (8-78) U/L Beta HCG, Quant < 2 mIU/mL Influenza Type A (PCR) NEGATIVE (Negative) Influenza Type B (PCR) NEGATIVE (Negative) RSV RNA Qual (PCR) NEGATIVE (Negative) SARS-CoV-2 RNA (RT-PCR) NEGATIVE (Negative) Prescription Management I considered prescription management with: Pain Medication (Ibuprofen and Tylenol) and Other (Antiemetics: Reglan and Benadryl) Chronic Conditions Patient?s care impacted by: Other Discharge Plan Discharge Clinical Impression: Viral syndrome, Nausea & vomiting, Diarrhea Patient Disposition: Home, Self-Care Instructions: Viral Syndrome (ED) Additional Instructions: Your blood work was unremarkable. Your symptoms are consistent with a viral infection. Take Reglan (metoclopramide) 10 mg with Benadryl (diphenhydramine) 50 mg every 6 hours as needed for nausea and vomiting Take ibuprofen 400 mg pills, 1 pills every 6 hours as needed for pain or fever. Take Tylenol (acetaminophen) 500 mg pills, 2 pills every 6 hours as needed for pain or fever. For diarrhea I want you to take Imodium 2 mg pills. ?Take 2 pills after the 1st loose, diarrheal stool then 1 pill after each loose, diarrheal stool up to 8 pills per day. ?This usually stops diarrhea within 24 hours. For the next 24 hours, stay on a OPAL diet (bananas, rice, applesauce, tea and toast). Follow-up with your doctor in 2 days. Please return to the emergency department if your symptoms get worse or if you develop any symptoms that are concerning to you. Prescriptions: New acetaminophen [Tylenol Extra Strength] 500 mg tablet 1,000 mg PO Q6H PRN (Reason: fever or pain) Qty: 20 0RF diphenhydramine HCl 25 mg capsule 50 mg PO Q6H PRN (Reason: headache, nausea, vomiting) Qty: 20 0RF ibuprofen 400 mg tablet 400 mg PO TID PRN (Reason: fever or pain) Qty: 30 0RF metoclopramide HCl [Reglan] 10 mg tablet 10 mg PO Q6H PRN (Reason: nausea and vomiting) Qty: 14 0RF No Action Wegovy 0.5 mg/0.5 mL pen injector 0.5 mg subcut TU@0900 cetirizine [Zyrtec] 10 mg Tablet 10 mg PO DAILY ibuprofen 200 mg Tablet 400 mg PO Q8H PRN (Reason: Pain) prednisone 20 mg tablet See Rx Instructions .Route .COMPLEX Qty: 18 0RF Rx Instructions: 20 mg orally; 3 tabs daily for 3 days, 2 tabs daily for 3 days, 1 tab daily for 3 days azithromycin 500 mg tablet 500 mg PO DAILY 3 Days Qty: 3 0RF codeine-guaifenesin [Guaifenesin AC] 10-100 mg/5 mL liquid 10 ml PO Q4H PRN (Reason: cough) Qty: 180 0RF albuterol sulfate 90 mcg/actuation HFA aerosol inhaler 2 puff inhalation Q6H PRN (Reason: shortness of breath or wheezing) Qty: 8.5 0RF ondansetron 4 mg tablet,disintegrating 4 mg PO Q6H PRN (Reason: nausea and vomiting) Qty: 14 0RF Interventions: ED Discharge Assessment Last Done: 06/24/24 07:51 Discharge Date/Time: 06/24/24 07:52 Print Language: Hebrew
[2024-06-23 19:31] LABS: MANUAL DIFF FLAG NO
[2024-06-23 19:32] LABS: Basophils Percent Auto 0.2 % (0-2); Eosinophils Absolute Auto 0.4 X10*3/uL (0.0-0.4); Eosinophils Percent Auto 4.7 % (0-4); Hematocrit 42.5 % (37.0-47.0); Hemoglobin 14.9 g/dl (12.0-16.0); Imm Gran Abs Auto 0.02 X10*3/uL (0.00-0.03); Imm Gran Pct Auto 0.2 % (0.0-0.4); Lymphocytes Absolute Auto 2.8 X10*3/uL (1.2-4.9); Lymphocytes Percent Auto 31.1 % (20-40); Mean Corpuscular HGB Conc 35.1 g/dl (31.0-35.0); Mean Corpuscular Hemoglobin 30.5 pg (27.0-33.0); Mean Corpuscular Volume 87.1 fL (80.0-98.0); Mean Platelet Volume 10.6 fL (9.4-12.3); Monocytes Absolute Auto 0.6 X10*3/uL (0.1-1.2); Monocytes Percent Auto 6.1 % (2-11); Neutrophils Absolute Auto 5.2 x10*3/uL (2.0-8.3); Neutrophils Percent Auto 57.7 % (45-73); Platelet Count 253 X10*3/uL (160-400); Red Blood Count 4.88 X10*6/uL (4.20-5.50); Red Cell Distribution Width 12.8 % (11.0-16.0); White Blood Count 9.1 X10*3/uL (4.8-10.8)
[2024-06-23 19:54] LABS: Alanine Aminotransferase 15 U/L (0-31); Alkaline Phosphatase 75 U/L (39-117); Anion Gap 9 (12-20); Aspartate Amino Transferase 19 U/L (5-31); Bilirubin Total 0.3 mg/dL (0.0-1.0); Blood Urea Nitrogen 9 mg/dL (9-16); Calcium 8.9 mg/dL (8.4-10.2); Carbon Dioxide 27 mmol/L (22-29); Chloride 109 mmol/L (96-108); Creatinine Clr Calc Pharmacy 104.9; Estimated Glomerular Filt Rate > 60; Glucose Random 87 mg/dL (60-115); Lipase 29 U/L (8-78); Potassium 3.6 mmol/L (3.3-5.1); Sodium 141 mmol/L (135-145); Total Protein 6.7 g/dL (6.5-8.0)
[2024-06-23 19:58] LABS: HCG Quantitative < 2 mIU/mL
[2024-06-23 20:09] LABS: Influenza A PCR NEGATIVE (Negative); Influenza B PCR NEGATIVE (Negative); Resp Syncy Virus RNA Qual PCR NEGATIVE (Negative); SARS COV2 PCR INHOUSE NEGATIVE (Negative)
[2024-06-23 23:53] VITALS: BP 105/55; PULSE 72; RESP 16; TEMP 36.8; O2SAT 98
[2024-06-24] MEDS: Ketorolac Tromethamine 15 MG/ML VIAL IVPUSH (02:04)
[2024-06-24] MEDS: ondansetron HCL 4 MG/2 ML VIAL IVPUSH (02:04)
[2024-06-24] MEDS: 0.9 % Sodium Chloride 1,000 ML 999 ML IV (02:05)
[2024-06-24 05:42] VITALS: BP 104/52; PULSE 75; RESP 16; TEMP 36.9; O2SAT 97
[2024-06-24] MEDS: Metoclopramide HCl 10 MG/2 ML VIAL IVPUSH (07:14)
[2024-06-24] MEDS: diphenhydrAMINE HCL 50 MG/ML VIAL IVPUSH (07:14)
[2024-06-24] MEDS: Loperamide HCl 2 MG CAPSULE PO (07:25)
[2024-06-24 07:28] VITALS: BP 93/38; PULSE 78; RESP 16; TEMP 36.8; O2SAT 98
[2024-06-24 07:32] VITALS: BP 99/36
[2024-06-24 07:51] VITALS: BP 99/36; PULSE 78; RESP 16; TEMP 36.8; O2SAT 98
== END 2024-06-24 07:52 | disposition home or self-care (01) ==
PROVIDERS: Physician Assistant; Emergency Provider Emergency Medicine Emergency Medical Services; PCP Internal Medicine
DX: B34.9 Viral infection, unspecified (principal); R11.2 Nausea with vomiting, unspecified; R19.7 Diarrhea, unspecified; R05.9 Cough, unspecified; R06.02 Shortness of breath; Z03.818 Encounter for observation for suspected exposure to other biological agents ruled out
CPT/HCPCS: 0241U; 80053; 83690; 84702; 85025; 96361; 96374; 96375; 99284; J1200; J1885; J2405; J2765

== ENCOUNTER 2025-03-13 16:20 | Emergency (ER) | payer MEDICAID, SELFPAY ==
--- NOTE | ~2025-03-13 | XR_ITS ---
CLINICAL HISTORY: coughing. pneumonia 1 view chest x-ray Comparison: None provided Findings: Bronchial wall thickening. No consolidation. No pleural effusion or pneumothorax. Normal size heart. No acute fracture. Probable postsurgical changes in the bilateral breasts. Impression: 1. Mild central bronchial wall thickening, which can be seen with asthma, reactive airways process or viral illness. 2. No superimposed infiltrate or consolidation. This document has been electronically signed by: Shira Esparza DO on 03/13/2025 18:30:04
[2025-03-13 17:46] VITALS: BP 118/70; PULSE 123; RESP 18; TEMP 39.2; O2SAT 98; BMI 28.3
--- NOTE | 2025-03-13 18:01 | ED_ITS ---
HPI - General Adult General Chief complaint: Upper Respiratory Symptoms Stated complaint: n/v/d Time Seen by Provider: 03/13/25 19:55 Source: patient Mode of arrival: ambulatory Limitations: no limitations History of Present Illness ED Provider: Dr. Leticia Duran HPI narrative: Patient comes to the emergency room complaining of nausea vomiting, body aches, patient states that she has had flu-like symptoms for 5 days. Patient states that she has been having diarrhea as well. Patient states that her daughter had the flu 1st and now she has it. Patient has history of asthma, states that she used a neb treatment before coming, this time, patient denies shortness of breath or wheezing. Related Data Home Medications ?Medication ?Instructions ?Recorded ?Confirmed cetirizine 10 mg tablet (Zyrtec) 10 mg PO DAILY 01/16/24 ibuprofen 200 mg tablet 400 mg PO Q8H PRN Pain 01/1501/16/24 semaglutide (weight loss) 0.5 0.5 mg subcut TU@0900 01/16/24 mg/0.5 mL subcutaneous pen injector (Wegojerri) Previous Rx's ?Medication ?Instructions ?Recorded albuterol sulfate 90 mcg/actuation 2 puff inhalation Q 6H PRN 01/17/24 aerosol inhaler shortness of breath or wheez ing #8.5 grams azithromycin 500 mg tablet 500 mg PO DAILY 3 days #3 t abs 01/17/24 codeine 10 mg-guaifenesin 100 mg/5 10 ml PO Q4H PRN co ugh #180 mL 01/17/24 mL oral liquid (Guaifenesin AC) prednisone 20 mg tablet See Rx Instructions .Route 1 .COMPLEX #18 tabs ondansetron 4 mg disintegrating 4 mg PO Q6H PRN nausea and 04/29/24 tablet vomiting #14 tabs acetaminophen 500 mg tablet 1,000 mg (2 x 500 mg) PO Q 6H PRN 06/24/24 (Tylenol Extra Strength) fever or pain #20 tabs diphenhydramine HCl 25 mg capsule 50 mg (2 x 25 mg) PO Q6H PRN 06/24/24 headache, nausea, vomiting #20 caps ibuprofen 400 mg tablet 400 mg PO TID PRN fever or p ain 06/24/24 #30 tabs metoclopramide HCl 10 mg tablet 10 mg PO Q6H PRN nause a and 06/24/24 (Reglan) vomiting #14 tabs benzonatate 100 mg capsule 100 mg PO TID PRN cough #15 caps 03/13/25 ibuprofen 600 mg tablet 600 mg PO Q6H PRN fever or p ain 03/13/25 #30 tabs loperamide 2 mg tablet 2 mg PO Q4H PRN loose stool #20 03/13/25 tabs ondansetron HCl 4 mg tablet 4 mg PO Q6H PRN nausea and 03/13/25 vomiting #14 tabs prednisone 50 mg tablet 50 mg PO DAILY #4 tabs 03/13 Allergies Allergy/AdvReac Type Severity Reaction Status Date / Time cat dander (CAT DANDER) Allergy Intermediate ITCHY Verified 03/13/25 17:50 WATERY EYES dog dander (DOGS) Allergy Intermediate ITCHY Verified 03/13/25 17:50 WATERY EYES GRASS Allergy Intermediate ITCHY, Uncoded 03/13/25 17:50 HIVES Review of Systems 2 Review of Systems: Constitutional : No Weight loss, complaining of fever, chills, fatigue and generalized malaise ENT/Mouth : No Hearing loss, No Ear Pain, complaining of Nasal Congestion, No Sinus Pain, No Hoarseness, No sore throat, complaining of Rhinorrhea, No Swallowing Difficulty Eyes: No Eye Pain, No Swelling, No Redness, No Foreign Body, No Discharge, No Vision Changes Cardiovascular : No Chest Pain, No SOB, No Dyspnea on Exertion, No Orthopnea, No Edema, No Palpitations Respiratory : Complaining of productive cough, complaining of wheezing that improved with the neb treatment at home. Gastrointestinal : Complaining of nausea vomiting and diarrhea No Constipation, No abdominal Pain, No Hematochezia, No Melena Genitourinary : no irregular bleeding, No Dysuria, No Urinary Frequency, No Hematuria, No Urinary Incontinence, No Urgency, No Flank Pain, No Urinary Flow Changes, No Hesitancy Musculoskeletal : No joint pain, No Myalgias, No Joint Swelling Skin : No Skin Lesions, No rash Neuro : No Weakness, No Numbness, No Paresthesias, No Loss of Consciousness, No Dizziness, No Headache Psych : No Anxiety/Panic, No Depression, No SI/HI/AH/VH, No Social Issues, Heme/Lymph: No Bruising, No Bleeding,No Lymphadenopathy Endocrine : No Polyuria, No Polydipsia, No Temperature Intolerance [facility] Past Medical History Medical History H/O eye muscle disorder Asthma Post depression Surgical History Hx of breast reduction, elective Hx of tonsillectomy Social History Social History (Updated 02/22/23 @ 15:03 by Dalila Javier CMA) Household Members: Family Housing: House Alcohol intake: never Patient Tobacco Use Status: Never used Tobacco Substance Use Type: Marijuana Advance Directives: No Advance Directives Information Provided: No Do you have a plan to hurt others: No Plan service: No Current occupational status: employed Physical Exam ED Exam Exam: Appearance: Alert. Oriented X3. No acute distress. Eyes: Pupils equal, round and reactive to light. Bilateral conjunctivae injection ENT: Pharynx normal. Neck: Normal inspection. Neck supple. No lymph nodes noted. No crepitus CVS: Normal heart rate and rhythm. Pulses normal. Normal S1 and S2 Respiratory: No respiratory distress. Breath sounds normal. No Wheezing. No rales Abdomen: Soft and nontender. No rigidity. No distention. Skin: Skin warm and dry. Normal skin color. Normal skin turgor. Extremities: No lower extremity edema. No Lacerations. No Rash Neuro: Oriented X 3. No motor deficit. No sensory deficit. Moving all extremities. No slurred speech. CN 2 through 12 grossly intact Psych: calm, cooperative, normal affect Vital Signs: Vital Signs - 24 hr 03/13/25 17:46 03/13/25 19:44 03/13/25 20:53 Temperature 102.6 F H 101.7 F H 100.1 F Pulse Rate 123 H 111 H 97 Respiratory Rate 18 20 19 Blood Pressure 118/70 105/74 97/55 L Pulse Oximetry 98 100 98 Oxygen Delivery Method Room Air Room Air Room Air 03/13/25 21:05 Temperature 100.1 F Pulse Rate 97 Respiratory Rate 19 Blood Pressure 97/55 L Pulse Oximetry 98 Oxygen Delivery Method Room Air BMI result Body Mass Index 28.3 Course Course Course Narrative: RME: 34-year-old female whose daughter recently tested positive for flu presents to ED for coughing nausea vomiting diarrhea unable to eat or keep anything down. Charge nurse to call patient back to the ED due potassium Medications Administered Discontinued Medications Generic Name Dose Route Start Last Admin Trade Name Kwasi PRN Reason Stop Dose Admin Acetaminophen 975 mg 03/13/25 19:45 03/13/25 20:11 Acetaminophen 325 Mg Tablet PO 03/13/25 19:46 975 mg ONCE ONE Administration Ibuprofen 800 mg 03/13/25 17:58 03/13/25 20:09 Ibuprofen 800 Mg Tablet PO 03/13/25 17:59 800 mg ONCE ONE Administration Loperamide HCl 4 mg 03/13/25 19:45 03/13/25 20:11 Loperamide Hcl 2 Mg Capsule PO 03/13/25 19:46 4 mg ONCE ONE Administration Ondansetron HCl 4 mg 03/13/25 17:58 03/13/25 20:17 Ondansetron Odt 4 Mg Tab.Rapdis TRANSLINGU 03/13/25 17:59 4 mg ONCE ONE Administration Ondansetron HCl 4 mg 03/13/25 19:45 03/13/25 19:51 Ondansetron Odt 4 Mg Tab.Rapdis TRANSLINGU 03/13/25 19:46 4 mg ONCE ONE Administration Potassium Chloride 60 meq 03/13/25 19:45 03/13/25 20:10 Potassium Chloride Packet 20 Meq Packet PO 03/13/25 19:46 60 meq ONCE ONE Administration Prednisone 60 mg 03/13/25 19:45 03/13/25 20:11 Prednisone 20 Mg Tablet PO 03/13/25 19:46 60 mg ONCE ONE Administration Medical Decision Making Medical Decision Making MDM Narrative: Patient is not wheezing at this time My interpretation of labs: No significant abnormality in patient's hematology, chemistry shows a potassium of 2.8 which was repleted p.o.. Normal BUN and creatinine, magnesium 1.8, normal LFTs, hCG negative. Serology was positive for influenza a, negative for influenza B RSV and strep Patient was given p.o. Zofran, acetaminophen and Tylenol, p.o. prednisone, potassium, loperamide Differential Diagnosis Differential Diagnoses: The differential diagnosis associated with the presentation includes (Influenza a, influenza B, RSV, COVID, gastroenteritis, viral illness) Lab Data [facility] Lab Attestation statement: I reviewed the patient's lab results. 03/13/25 18:14 03/13/25 18:14 Labs: Lab Results 03/13/25 Range/Units 18:14 WBC 6.9 (4.8-10.8) X10*3/uL RBC 5.02 (4.20-5.50) X10*6/uL Hgb 15.2 (12.0-16.0) g/dl Hct 44.1 (37.0-47.0) % MCV 87.8 (80.0-98.0) fL MCH 30.3 (27.0-33.0) pg MCHC 34.5 (31.0-35.0) g/dl RDW 12.5 (11.0-16.0) % Plt Count 173 D (160-400) X10*3/uL MPV 12.0 (9.4-12.3) fL Immature Gran % (Auto) 0.3 (0.0-0.4) % Neut % (Auto) 67.7 (45-73) % Lymph % (Auto) 22.0 (20-40) % [place] % (Auto) 9.8 (2-11) % Eos % (Auto) 0.1 (0-4) % Baso % (Auto) 0.1 (0-2) % Lymph # (Auto) 1.5 (1.2-4.9) X10*3/uL [place] # (Auto) 0.7 (0.1-1.2) X10*3/uL Eos # (Auto) 0.0 (0.0-0.4) X10*3/uL Baso # (Auto) 0.0 (0.0-0.2) X10*3/uL Abs Immat Gran (auto) 0.02 (0.00-0.03) X10*3/uL Absolute Neuts (auto) 4.7 (2.0-8.3) x10*3/uL Absolute Nucleated RBC 0.000 (0.0-0.012) X10*3/uL Nucleated RBC % (auto) 0.0 (0.0-0.2) /100WBC Sodium 138 (135-145) mmol/L Potassium 2.8 L* D (3.3-5.1) mmol/L Chloride 106 (96-108) mmol/L Carbon Dioxide 22 (22-29) mmol/L Anion Gap 13 (12-20) BUN 10 (9-16) mg/dL Creatinine 0.89 (0.5-1.4) mg/dL Estim Creat Clear Calc 77.1 Estimated GFR > 60 Random Glucose 114 (60-115) mg/dL Calcium 8.8 (8.4-10.2) mg/dL Magnesium 1.8 (1.6-2.6) mg/dL Total Bilirubin 0.4 (0.0-1.0) mg/dL AST 28 (5-31) U/L ALT 16 (0-31) U/L Alkaline Phosphatase 64 (39-117) U/L Total Protein 7.2 (6.5-8.0) g/dL Albumin 4.5 (3.5-5.0) g/dL Beta HCG, Quant < 2 mIU/mL Influenza Type A (PCR) POSITIVE A (Negative) Influenza Type B (PCR) NEGATIVE (Negative) RSV RNA Qual (PCR) NEGATIVE (Negative) SARS-CoV-2 RNA (RT-PCR) NEGATIVE (Negative) S. pyogenes GrpA BRIAN Negative (Negative) Independent Interpretation I performed an independent interpretation of an: Plain X-Ray Radiology Impression Discussion of test interpretation with radiology: I have reviewed the radiologist's reading. Radiologist Impression: Center bronchial wall thickening can be seen with asthma, reactive airway, viral illness, no superimposed infiltrate or consolidation Discharge Plan Discharge Clinical Impression: Influenza A, Nausea vomiting and diarrhea, Acute hypokalemia Patient Disposition: Home, Self-Care Instructions: Potassium Content of Foods List (ED), Hypokalemia (ED), Influenza (ED), Acute Nausea and Vomiting (ED), Acute Diarrhea (ED) Additional Instructions: Please follow-up with your primary care physician tomorrow. If you have any worsening or new symptoms, please return to the emergency room or call 911 Prescriptions: New prednisone 50 mg tablet 50 mg PO DAILY Qty: 4 0RF ondansetron HCl 4 mg tablet 4 mg PO Q6H PRN (Reason: nausea and vomiting) Qty: 14 0RF loperamide 2 mg tablet 2 mg PO Q4H PRN (Reason: loose stool) Qty: 20 0RF Rx Instructions: administer after each loose stool until symptoms controlled; do not exceed 8 mg per 24 hrs benzonatate 100 mg capsule 100 mg PO TID PRN (Reason: cough) Qty: 15 0RF ibuprofen 600 mg tablet 600 mg PO Q6H PRN (Reason: fever or pain) Qty: 30 0RF No Action Wegovy 0.5 mg/0.5 mL pen injector 0.5 mg subcut TU@0900 cetirizine [Zyrtec] 10 mg Tablet 10 mg PO DAILY ibuprofen 200 mg Tablet 400 mg PO Q8H PRN (Reason: Pain) prednisone 20 mg tablet See Rx Instructions .Route .COMPLEX Qty: 18 0RF Rx Instructions: 20 mg orally; 3 tabs daily for 3 days, 2 tabs daily for 3 days, 1 tab daily for 3 days azithromycin 500 mg tablet 500 mg PO DAILY 3 Days Qty: 3 0RF codeine-guaifenesin [Guaifenesin AC] 10-100 mg/5 mL liquid 10 ml PO Q4H PRN (Reason: cough) Qty: 180 0RF albuterol sulfate 90 mcg/actuation HFA aerosol inhaler 2 puff inhalation Q6H PRN (Reason: shortness of breath or wheezing) Qty: 8.5 0RF ondansetron 4 mg tablet,disintegrating 4 mg PO Q6H PRN (Reason: nausea and vomiting) Qty: 14 0RF acetaminophen [Tylenol Extra Strength] 500 mg tablet 1,000 mg PO Q6H PRN (Reason: fever or pain) Qty: 20 0RF diphenhydramine HCl 25 mg capsule 50 mg PO Q6H PRN (Reason: headache, nausea, vomiting) Qty: 20 0RF ibuprofen 400 mg tablet 400 mg PO TID PRN (Reason: fever or pain) Qty: 30 0RF metoclopramide HCl [Reglan] 10 mg tablet 10 mg PO Q6H PRN (Reason: nausea and vomiting) Qty: 14 0RF Interventions: ED Discharge Assessment Last Done: 03/13/25 21:05 Discharge Date/Time: 03/13/25 21:06 Print Language: Upper Sorbian
[2025-03-13 18:24] LABS: MANUAL DIFF FLAG NO
[2025-03-13 18:35] LABS: IDNOW Serial# 152EDE1D; Strep A Nucleic Acid Negative (Negative)
[2025-03-13 18:53] LABS: Alanine Aminotransferase 16 U/L (0-31); Albumin Level 4.5 g/dL (3.5-5.0); Alkaline Phosphatase 64 U/L (39-117); Anion Gap 13 (12-20); Aspartate Amino Transferase 28 U/L (5-31); Blood Urea Nitrogen 10 mg/dL (9-16); Calcium 8.8 mg/dL (8.4-10.2); Carbon Dioxide 22 mmol/L (22-29); Chloride 106 mmol/L (96-108); Creatinine Clr Calc Pharmacy 77.1; Estimated Glomerular Filt Rate > 60; Magnesium 1.8 mg/dL (1.6-2.6); Potassium 2.8 mmol/L (3.3-5.1); Sodium 138 mmol/L (135-145); Total Protein 7.2 g/dL (6.5-8.0)
--- NOTE | 2025-03-13 18:53 | PC.NURSE ---
charge out clerkNELLY Ellsworth notified pt potassium 2.8 and she is currently in [facility].
[2025-03-13 19:05] LABS: Hematocrit 44.1 % (37.0-47.0); Hemoglobin 15.2 g/dl (12.0-16.0); Imm Gran Abs Auto 0.02 X10*3/uL (0.00-0.03); Imm Gran Pct Auto 0.3 % (0.0-0.4); Lymphocytes Absolute Auto 1.5 X10*3/uL (1.2-4.9); Mean Corpuscular HGB Conc 34.5 g/dl (31.0-35.0); Mean Corpuscular Hemoglobin 30.3 pg (27.0-33.0); Mean Corpuscular Volume 87.8 fL (80.0-98.0); NRBC Abs Auto 0.000 X10*3/uL (0.0-0.012); NRBC Pct Auto 0.0 /100WBC (0.0-0.2); Platelet Count 173 X10*3/uL (160-400); Red Blood Count 5.02 X10*6/uL (4.20-5.50); White Blood Count 6.9 X10*3/uL (4.8-10.8)
[2025-03-13 19:06] LABS: Resp Syncy Virus RNA Qual PCR NEGATIVE (Negative); SARS COV2 PCR INHOUSE NEGATIVE (Negative)
[2025-03-13 19:44] VITALS: BP 105/74; PULSE 111; RESP 20; TEMP 38.7; O2SAT 100
[2025-03-13] MEDS: Potassium Chloride Packet 20 MEQ PACKET 60 MEQ PO (20:10)
--- OUTSIDE RECORDS SUMMARY | 2025-03-13 20:24 | XMS_ITS | Encounter Summary ---
Author Organization [employer] Address [address] [place] [address] 7 [place] [address] Care Team Providers Care Inventory And Pricing Associate Name Role Phone Jameson Tang MD Primary Care Provider [phone] Reason for Visit * Reason Comments Med Refill Encounter Details Date Type Department Care Team ([facility] st Contact Info) Description 02/17/2024 Refill [facility] MED & PEDS [address] [place] [address] Jameson Tang MD [address] [place] [address] Social History Tobacco Use Types Packs/Day Years Used Date Smoking Tobacco: Never Smokeless Tobacco: Never Depression Answer Date Recorded Patient Health Questionnaire-9 Score 7 11/10/2023 Patient Health Questionnaire-9 Score 7 11/10/2023 Last PHQ-9: Questionnaire Data Not on file 0 11/10/2023 Depression Answer Date Recorded Patient Health Questionnaire-2 Score 2 11/10/2023 Comments Unknown Sex and Gender Information Value Date Recorded Sex Assigned at Female 06/10/2023 12:30 PM EDT Legal Sex Female 12:29 PM EDT Gender Identity Female 06/10/2023 12:30 PM EDT Sexual Orientation Don't know 06/10/2023 12 :30 PM EDT documented as of this encounter Plan of Treatment Not on file documented as of this encounter Visit Diagnoses Not on filedocumented in this encounter Additional Health Concerns Assessment Noted Time PHQ-9 Depression Total Score: 7 11/10/19 24 10:56 AM EDT documented as of this encounter Care Teams Inventory And Pricing Associate Relationship Specialty Start Date End Date Jameson Tang MD [address] [place] [id number] PCP - General Internal Medicine 11/10/23 documented as of this encounter
--- OUTSIDE RECORDS SUMMARY | 2025-03-13 20:24 | XMS_ITS | Encounter Summary ---
Author Organization [employer] Address [address] [facility] 7 [place] [address] Care Team Providers Care Physical Therapy Director Name Role Phone Jameson Tang MD Primary Care Provider [phone] Encounter Details Date Type Department Care Team ([facility] st Contact Info) Description 01/24/2024 Orders Only [facility] MED [facility] PEDS [address] [place] [address] Jameson Tagn MD [address] [place] [address] Obesities, morbid (CMS/HCC) (Primary Dx) Social History Tobacco Use Types Packs/Day Years [...] documented as of this encounter Visit Diagnoses Diagnosis Obesities, morbid (HCC)- Primary Morbid obesity documented in this encounter Additional Health Concerns Assessment Noted Time PHQ-9 Depression Total Score: 7 11/10/19 24 10:56 AM EDT documented as of this encounter Care Teams Physical Therapy Director Relationship Specialty Start Date End Date Jameson Tang MD [address] [place] [id number] PCP - General Internal Medicine 11/10/23 documented as of this encounter
--- OUTSIDE RECORDS SUMMARY | 2025-03-13 20:24 | XMS_ITS | Encounter Summary ---
Author Organization [employer] Address [address] [facility] 7 [place] [address] Care Team Providers Care Steam Plant Records Clerk Name Role Phone Jameson Tang MD Primary Care Provider [phone] Reason for Visit * Reason Onset Date Comments Med Refill 08/28/2024 Encounter Details Date Type Department Care Team (Late st Contact Info) Description 08/28/2024 Telephone [facility] MEDICINE [address] [place] [address] Jameson Tang MD [address] [place] [address] Med Refill Social History Tobacco Use Types Packs/Day Years [...] PM EDT documented as of this encounter Miscellaneous Notes * Telephone Encounter - Kerry Lynn LPN - 08/28/2024 3:03 PM EDT Medication pended to PCP. * Telephone Encounter - Guadalupe Ramires - 08/28/2024 3:01 PM EDT TC from pt requesting medication refill. Medications needing refill : Tirzepatide-Weight Management (Zepbound) 2.5 MG/0.5ML solution auto-injector To be sent to: [facility] documented in this encounter Plan of Treatment Not on file documented as of this encounter Visit Diagnoses Not on filedocumented in this encounter Additional Health Concerns Assessment Noted Time PHQ-9 Depression Total Score: 7 11/10/19 24 10:56 AM EDT documented as of this encounter Care Teams Steam Plant Records Clerk Relationship Specialty Start Date End Date Jameson Tang MD [address] [place] [id number] PCP - General Internal Medicine 11/10/23 documented as of this encounter
--- OUTSIDE RECORDS SUMMARY | 2025-03-13 20:24 | XMS_ITS | Encounter Summary ---
Author Organization [employer] Address [address] [facility] 7 [place] [address] Care Team Providers Care Almond Sorter Name Role Phone Jameson Tang MD Primary Care Provider [phone] Reason for Visit * Reason Onset Date Comments Medication Question 02/14/2024 Encounter Details Date Type Department Care Team ([facility] st Contact Info) Description 02/14/2024 Telephone [facility] MEDICINE [address] [place] [address] Jameson Tang MD [address] [place] [address] Medication Question Social History Tobacco Use Types Packs/Day Years [...] encounter Miscellaneous Notes * Telephone Encounter - Sandy Valdez RN - 02/15/2024 1:13 PM EST 1mg dose of Wegovy sent to pt pharmacy. Pt should not need a PA as med formulary changes are not taking under effect until March 2024. * Telephone Encounter - Baldomero Sanabria - 02/14/2024 9:16 AM EST Tc from pt requesting a callback due to medication wegovy , pt informs she dont want to missed the correct dose. Pt also informs she been in the same dose for 2 months . Callback [phone] Pt will like PCP or [place] before 1pm documented in this encounter Plan of Treatment Not on file documented as of this encounter Visit Diagnoses Not on filedocumented in this encounter Additional Health Concerns Assessment Noted Time PHQ-9 Depression Total Score: 7 11/10/19 24 10:56 AM EDT documented as of this encounter Care Teams Almond Sorter Relationship Specialty Start Date End Date Jameson Tang MD [address] [place] [address] [place] [address] PCP - General Internal Medicine 11/10/23 documented as of this encounter
--- OUTSIDE RECORDS SUMMARY | 2025-03-13 20:24 | XMS_ITS | Encounter Summary ---
Author Organization [employer] Address [address] [place] [address] 7 [place] [address] Care Team Providers Care Stroke Program Coordinator Name Role Phone Jameson Tang MD Primary Care Provider [phone]- [phone] Encounter Details Date Type Department Care Team ([facility] st Contact Info) Description 02/14/2024 Orders Only [facility] CHC MED & PEDS [address] [place] [address] Jameson Tang MD [address] [place] [address] Obesities, morbid (CMS/HCC) (Primary Dx) Social History [...] on file documented as of this encounter Procedures Procedure Name Priority Date/Time Associated Diagnosis Comments XR FOOT 1-2 VIEWS RIGHT Routine 02/24/2024 10:20 AM EST XR ANKLE 2 VIEWS RIGHT Routine 02/24/2024 10:20 AM EST documented in this encounter Results * XR Ankle 2 Views Right (02/24/2024 10:20 AM EST) Anatomical Region Laterality Modality Lower Extremities, Ankle Right Radiogr aphic Imaging 02/24/2024 10:2 0 AM EST Narrative 02/24/2024 10:50 AM EST [place] [address] XRay Report Signed Patient: Jackie Grande MR#: [id number] : 1990 Acct:[id number] Age/Sex: 33 / F ADM Date: 02/24/24 Loc: HO.ED Attending Dr: Ordering Physician: Generic ED Physician Date of Service: 02/24/24 Procedure(s): XR ankle RT 2V Accession Number(s): [id number] cc: Jameson Tang MD; Generic ED Physician EXAMINATION: XR ANKLE, RIGHT XR FOOT, RIGHT CLINICAL INFORMATION: Inferior right ankle pain and dorsal foot pain following a fall. COMPARISON: No prior study available for comparison. TECHNIQUE: AP, oblique, and lateral views of the right ankle and foot. FINDINGS: Right ankle: Mild circumferential soft tissue swelling. No acute fracture or dislocation. The ankle mortise is maintained. No joint space narrowing or marginal osteophytes. No talar osteochondral lesion. No abnormal soft tissue calcification. Right foot: No acute fracture or dislocation. Normal tarsal alignment. No joint space narrowing or marginal osteophytes. No osseous erosion. No abnormal soft tissue calcification. XR/XR ankle RT 2V IMPRESSION: Right ankle: Mild circumferential soft tissue swelling without acute osseous body. Right foot: Unremarkable examination. Electronically signed by: Yonis Schafer MD 02/24/2024 10:46 AM EST Dictated By: Yonis Schafer MD Signed By: <Electronically signed by Yonis Schafer MD in OV> 02/24/24 1046 DD/ 1020 TD/TT: 02/24/24 1029 Vegetable Farmworker: Procedure Note Donotuseinterpreter, Image - 02/28/[address] [address] XRay Report Signed Patient: Jackie GrandeMR#: [id number] : 1990Acct:[id number] Age/Sex: 33 / FADM Date: 02/24/24 Loc: HO.ED Attending Dr: Ordering Physician: Generic ED Physician Date of Service: 02/24/24 Procedure(s): XR ankle RT 2V Accession Number(s): [id number] cc: Jameson Tang MD; Generic ED Physician EXAMINATION: XR ANKLE, RIGHT XR FOOT, RIGHT CLINICAL INFORMATION: Inferior right ankle pain and dorsal foot pain following a fall. COMPARISON: No prior study available for comparison. TECHNIQUE: AP, oblique, and lateral views of the right ankle and foot. FINDINGS: Right ankle: Mild circumferential soft tissue swelling. No acute fracture or dislocation. The ankle mortise is maintained. No joint space narrowing or marginal osteophytes. No talar osteochondral lesion. No abnormal soft tissue calcification. Right foot: No acute fracture or dislocation. Normal tarsal alignment. No joint space narrowing or marginal osteophytes. No osseous erosion. No abnormal soft tissue calcification. XR/XR ankle RT 2V IMPRESSION: Right ankle: Mild circumferential soft tissue swelling without acute osseous body. Right foot: Unremarkable examination. Electronically signed by: Yonis Schafer MD 02/24/2024 10:46 AM EST Dictated By: Yonis Schafer MD Signed By: <Electronically signed by Yonis Schafer MD in OV> 02/24/24 1046 DD/ 1020 TD/TT: 02/24/24 1029 Vegetable Farmworker: [facility] External Provider IMG XR PROCEDURES Final Result * XR Foot 1-2 Views Right (02/24/2024 10:20 AM EST) Anatomical Region Laterality Modality Lower Extremities, Foot Right Radiogra phic Imaging 02/24/2024 10:2 0 AM EST Narrative 02/24/2024 10:50 AM EST [address] [address] XRay Report Signed Patient: Jackie Grande MR#: [id number] : 1990 Acct:[id number] Age/Sex: 33 / F ADM Date: 02/24/24 Loc: HO.ED Attending Dr: Ordering Physician: Generic ED Physician Date of Service: 02/24/24 Procedure(s): XR foot RT 2V Accession Number(s): [id number] cc: Jameson Tang MD; Generic ED Physician EXAMINATION: XR ANKLE, RIGHT XR FOOT, RIGHT CLINICAL INFORMATION: Inferior right ankle pain and dorsal foot pain following a fall. COMPARISON: No prior study available for comparison. TECHNIQUE: AP, oblique, and lateral views of the right ankle and foot. FINDINGS: Right ankle: Mild circumferential soft tissue swelling. No acute fracture or dislocation. The ankle mortise is maintained. No joint space narrowing or marginal osteophytes. No talar osteochondral lesion. No abnormal soft tissue calcification. Right foot: No acute fracture or dislocation. Normal tarsal alignment. No joint space narrowing or marginal osteophytes. No osseous erosion. No abnormal soft tissue calcification. XR/XR foot RT 2V IMPRESSION: Right ankle: Mild circumferential soft tissue swelling without acute osseous body. Right foot: Unremarkable examination. Electronically signed by: Yonis Schafer MD 02/24/2024 10:46 AM [facility] Dictated By: Yonis Schafer MD Signed By: <Electronically signed by Yonis Schafer MD in OV> 02/24/24 1046 DD/ 1020 TD/TT: 02/24/24 1029 Vegetable Farmworker: SR Procedure Note Donotuseinterpreter, Image - 02/28/[address] [address] XRay Report Signed Patient: Jackie GrandeMR#: [id number] : 1990Acct:[id number] Age/Sex: 33 / FADM Date: 02/24/24 Loc: HO.ED Attending Dr: Ordering Physician: Generic ED Physician Date of Service: 02/24/24 Procedure(s): XR foot RT 2V Accession Number(s): [id number] cc: Jameson Tang MD; Generic ED Physician EXAMINATION: XR ANKLE, RIGHT XR FOOT, RIGHT CLINICAL INFORMATION: Inferior right ankle pain and dorsal foot pain following a fall. COMPARISON: No prior study available for comparison. TECHNIQUE: AP, oblique, and lateral views of the right ankle and foot. FINDINGS: Right ankle: Mild circumferential soft tissue swelling. No acute fracture or dislocation. The ankle mortise is maintained. No joint space narrowing or marginal osteophytes. No talar osteochondral lesion. No abnormal soft tissue calcification. Right foot: No acute fracture or dislocation. Normal tarsal alignment. No joint space narrowing or marginal osteophytes. No osseous erosion. No abnormal soft tissue calcification. XR/XR foot RT 2V IMPRESSION: Right ankle: Mild circumferential soft tissue swelling without acute osseous body. Right foot: Unremarkable examination. Electronically signed by: Yonis Schafer MD 02/24/2024 10:46 AM [facility] Dictated By: Yonis Schafer MD Signed By: <Electronically signed by Yonis Schafer MD in OV> 02/24/24 1046 DD/ 1020 TD/TT: 02/24/24 1029 Vegetable Farmworker: [facility] External Provider IMG XR PROCEDURES Final Result documented in this encounter Visit Diagnoses Diagnosis Obesities, morbid (HCC)- Primary Morbid obesity documented in this encounter Additional Health Concerns Assessment Noted Time PHQ-9 Depression Total Score: 7 11/10/19 24 10:56 AM EDT documented as of this encounter Care Teams Stroke Program Coordinator Relationship Specialty Start Date End Date Jameson Tang MD [address] [place] [phone] PCP - General Internal Medicine 11/10/23 documented as of this encounter
--- OUTSIDE RECORDS SUMMARY | 2025-03-13 20:24 | XMS_ITS | Encounter Summary ---
Author Organization [employer] Address [address] [place] [address] 7 [place] [address] Care Team Providers Care Side Boss Name Role Phone Jameson Tang MD Primary Care Provider [phone] Encounter Details Date Type Department Care Team (Late st Contact Info) Description 12/15/2023 Orders Only [facility] CHC MED & PEDS [address] [place] [address] Jameson Tang MD [address] [place] [address] Social History Tobacco Use Types Packs/Day Years [...] documented as of this encounter Care Teams Side Boss Relationship Specialty Start Date End Date Jameson Tagn MD [address] [place] [address] PCP - General Internal Medicine 11/10/23 documented as of this encounter
--- OUTSIDE RECORDS SUMMARY | 2025-03-13 20:25 | XMS_ITS | Encounter Summary ---
Author Organization [email or web address] Address [address] [facility] 7 [place] [address] Care Team Providers Care Rehabilitation Manager Name Role Phone Jameson Tang MD Primary Care Provider [phone] Reason for Visit * Reason Onset Date Comments Created in error 11/17/2023 Encounter Details Date Type Department Care Team ([facility] st Contact Info) Description 11/17/2023 Telephone [facility] MEDICINE [address] [place] [address] Jameson Tang MD [address] [place] [address] Created in error Social History Tobacco Use Types Packs/Day Years [...] documented as of this encounter Care Teams Rehabilitation Manager Relationship Specialty Start Date End Date Jameson Tang MD [address] [place] [phone] PCP - General Internal Medicine 11/10/23 documented as of this encounter
--- OUTSIDE RECORDS SUMMARY | 2025-03-13 20:25 | XMS_ITS | Encounter Summary ---
Author Organization [employer] Address [address] [facility] 7 [place] [address] Care Team Providers Care Structural Mill Supervisor Name Role Phone Jameson Tang MD Primary Care Provider [phone]- [phone] Reason for Visit * Reason Onset Date Comments Medication Question 03/08/2024 Med Refill 03/08/2024 Encounter Details Date Type Department Care Team ([facility] st Contact Info) Description 03/08/[address] [facility] MEDICINE [address] [place] [address] Jameson Tang MD [address] [place] [address] Medication Question; Med Refill Social History Tobacco Use Types [...] encounter Miscellaneous Notes * Telephone Encounter - Kimberly Jackson RN - 03/08/2024 4:55 PM EST Telephone call to the pt regarding the previous message . Pt states she agrees to change to the Zepbound injection . Pt states she will take her last shot from this box on 03/14/24 . Pt states she would like the new prescription sent to the [facility] pharmacy . Will route this message to the PCP for review. TY. * Telephone Encounter - Xavier Ruiz - 03/08/2024 8:42 AM EST Tc from pt stating that PCP told her to call to let him now for the switch from Wegovy to Zepbound. If any question contact pt at [phone] documented in this encounter Plan of Treatment Not on file documented as of this encounter Visit Diagnoses Not on filedocumented in this encounter Additional Health Concerns Assessment Noted Time PHQ-9 Depression Total Score: 7 11/10/19 24 10:56 AM EDT documented as of this encounter Care Teams Structural Mill Supervisor Relationship Specialty Start Date End Date Jameson Tang MD [address] [place] [phone] PCP - General Internal Medicine 11/10/23 documented as of this encounter
--- OUTSIDE RECORDS SUMMARY | 2025-03-13 20:25 | XMS_ITS | Encounter Summary ---
Author Organization [employer] Address [address] [facility] [address] [place] [address] Care Team Providers Care Loom Mechanic Name Role Phone Jameson Tang MD Primary Care Provider [phone] [phone] Encounter Details Date Type Department Care Team ([facility] st Contact Info) Description 12/22/2024 Orders Only [facility] CHC MED & PEDS [address] [place] [address] Jameson Tang MD [address] [place] [address] Social History Tobacco Use Types Packs/Day Years Used Date Smoking Tobacco: Never Smokeless Tobacco: Never Depression Answer Date Recorded Patient Health Questionnaire-9 Score 15 12/21/2024 Patient Health Questionnaire-9 Score 15 12/21/2024 Last PHQ-9: Questionnaire Data Not on file 0 12/21/2024 Housing Stability Answer Date Recorded What is your housing situation today? I have lisa barton 09/11/[address] you li ve. Do you have problems with any of the following? None of the above 09/11/2024 Food Insecurity Answer Date Recorded Within the past 12 months, y ou worried that your food would run out before you got money to buy more: Never True 09/11/2024 Within the past 12 months,th e food you bought just didn't last and you didn't have enough money to get more: Never True Transportation Answer Date Recorded In the past 12 months, has l ack of transportation kept you from medical appts, meetings, work or from getting things needed for daily living? No 09/11/2024 Utilities Answer Date Recorded In the past 12 months, has t he electric, gas, oil or water company threatened to shut off services in your home? No 09/11/2024 Depression Answer Date Recorded Patient Health Questionnaire-2 Score 4 12/21/2024 Internet Access Answer Date Recorded Internet Access Q1 Yes 09/11/2024 Internet Access Q2 Not on file 09/11/2024 Comments Unknown Sex and Gender Information Value Date Recorded Sex Assigned at Female 06/10/2023 12:30 PM EDT Legal Sex Female 12:29 PM EDT Gender Identity Female 06/10/2023 12:30 PM EDT Sexual Orientation Don't know 06/10/2023 12 :30 PM EDT documented as of this encounter Plan of Treatment Not on file documented as of this encounter Procedures Procedure Name Priority Date/Time Associated Diagnosis Comments CHLAMYDIA/TRICHOMONAS/ NEISSERIA GONORRHOEAE, PCR, URINE Routine 12/22/2024 10:46 AM EDT URINALYSIS WITH REFLEX TO MICROSCOPIC Routine 12/22/2024 10:46 AM EDT COMPREHENSIVE METABOLIC PANEL, FASTING Routine 12/22/2024 10:35 AM EDT documented in this encounter Results * Chlamydia/Trichomonas/Neisseria gonorrhoeae, PCR, Urine (12/22/2024 10:46 AM EDT) CT PCR, Urine NOT DETECTED Not Detect. [facility] Comment:A not detected test result does not exclude the possibilityof infection because test results can be affected byimproper specimen collection, concurrent antibiotic therapy,or the number of organisms in the specimen which may bebelow the sensitivity of the test. As with many diagnostictests, results from the Xpert CT/NG assay should beinterpreted in conjunction with other laboratory andclinical data available to the clinician.The Xpert CT/NG assay should not be used for the evaluationof suspected sexual abuse or for other medico-legalindications. Additional testing is recommended in anycircumstance when false positive or false negative resultscould lead to adverse medical, social or psychologicalconsequences. NG PCR, Urine NOT DETECTED Not Detect. [facility] Comment:A not detected test result does not exclude the possibilityof infection because test results can be affected byimproper specimen collection, concurrent antibiotic therapy,or the number of organisms in the specimen which may bebelow the sensitivity of the test. As with many diagnostictests, results from the Xpert CT/NG assay should beinterpreted in conjunction with other laboratory andclinical data available to the clinician.The Xpert CT/NG assay should not be used for the evaluationof suspected sexual abuse or for other medico-legalindications. Additional testing is recommended in anycircumstance when false positive or false negative resultscould lead to adverse medical, social or psychologicalconsequences. 12/22/2024 10:4 6 AM EDT 12/22/2024 2:18 PM EDT us Jameson Tang MD LAB URINE ORDERABLES Final Result Performing Organization Address [facility] Co de Phone Number [facility] [address] [place] [phone] * Urinalysis with Reflex to Microscopic (12/22/2024 10:46 AM EDT) Color Urine Yellow [facility] Appearance Urine Clear [facility] PH 7.0 5.0 - 9.0 [facility] Glucose Urine UA Negative Negative mg/dL [facility] Urine Blood Negative Negative [facility] Specific [place] - Urine 1.025 1.005 - 1.025 [facility] Urine Protein Negative Neg-Trace mg/dL [facility] Urine Ketones Negative Negative mg/dL [facility] Nitrite Urine Negative Negative [facility] Leukocyte Esterase Urine Negative Negative [facility] 12/22/2024 10:4 6 AM EDT 12/22/2024 2:21 PM EDT us Jameson Tang MD LAB URINE ORDERABLES Final Result Performing Organization Address [facility] Co de Phone Number [facility] [address] [place] [phone] * (ABNORMAL) Comprehensive Metabolic Panel, Fasting (12/22/2024 10:35 AM EDT) Sodium 142 135 - 145 mmol/L [facility] Potassium 3.7 3.3 - 5.1 mmol/L [facility] Chloride 109(H) 96 - 108 mmol/L [facility] Carbon Dioxide 28 22 - 29 mmol/L [facility] Anion Gap 9(L) 12 - 20 [facility] Urea Nitrogen (BUN) 14 9 - 16 mg/dL [facility] Creatinine, Serum 0.73 0.5 - 1.4 mg/dL [facility] Estimated Glomerular Filt Rate >60 [facility] Comment:Chronic Kidney Disea se: Estimated GFR < 60 mL/min/1.45j1Jukpkh Kidney Disease: Estimated GFR < 15 mL/min/1.73m2 Glucose Fasting 89 60 - 99 mg/dL [facility] Calcium 8.8 8.4 - 10.2 mg/dL [facility] Bilirubin, Total 0.6 0.0 - 1.0 mg/dL [facility] Aspartate Amino Transferase 24 5 - 31 U/L [facility] Alanine Aminotransferase 14 0 - 31 U/L [facility] Total Protein 6.2(L) 6.5 - 8.0 g/dL [facility] Albumin Level 3.9 3.5 - 5.0 g/dL [facility] Alkaline Phosphatase 70 39 - 117 U/L [facility] 12/22/2024 10:3 5 AM EDT 12/22/2024 2:24 PM EDT us Jameson Tang MD LAB BLOOD ORDERABLES Final Result [facility] [address] [place] [phone] [phone] documented in this encounter Visit Diagnoses Not on filedocumented in this encounter Additional Health Concerns Assessment Noted Time PHQ-9 Depression Total Score: 15 025 2:14 PM EDT documented as of this encounter Care Teams Loom Mechanic Relationship Specialty Start Date End Date Jameson Tang MD [address] [place] [phone] PCP - General Internal Medicine 11/10/23 documented as of this encounter
--- OUTSIDE RECORDS SUMMARY | 2025-03-13 20:25 | XMS_ITS | Clinical Summary ---
Author Organization [employer] Address [address] [facility] [address] [place] [address] Care Team Providers Care Comptometer Operator Name Role Phone Jameson Tang MD Primary Care Provider [phone] Allergies No known active allergies Medications * This document contains information received from the source organization and may not represent a complete record from that organization. cetirizine (ZyrTEC ALLERGY) 10 MG tablet Take 10 mg by mouth. 02/01/20 21 Active pseudoephedrine (Sudafed) 30 MG tabletIndications :Nasal congestion Take 1 tablet (30 mg) by mouth every 4 (four) hours if needed for congestion for up to 10 days. 30 tablet 11/10/19 24 Active montelukast (Singulair) 10 MG tabletIndications :Nasal congestion Take 1 tablet (10 mg) by mouth Once per day. 30 tablet 2 03/03/20 24 Active buPROPion SR (Wellbutrin SR) 150 MG 12 hr tabletIndications :Difficulty concentrating Take 1 tablet (150 mg) by mouth Once per day. Do not crush, chew, or split. 30 tablet 11 03/20/20 24 025 Active Zepbound 2.5 MG/0.5ML solution auto-injectorIndi cations:Obesity (BMI 30-39.9) INJECT 0.5ML'S (2.5MG'S) SUBCUTANEOUSLY ONCE PER WEEK 2 mL 1 05/09/19 25 Active Tirzepatide-Weigh t Management (Zepbound) 5 MG/0.5ML solutionIndicatio ns:Obesity (BMI 30-39.9) Inject 5 mg under the skin 1 (one) time per week. 2 mL 1 11/07/19 25 Active econazole nitrate 1 % creamIndications: Monilial intertrigo Apply topically Once per day. To apply to the affected area 2 times a day x 2 weeks. 30 g 12/22/19 25 026 Active Tirzepatide-Weigh t Management (Zepbound) 7.5 MG/0.5ML solution auto-injectorIndi cations:Obesity (BMI 30-39.9) Inject 0.5 mL (7.5 mg) under the skin 3 (three) times a week. 2 mL 2 9:14 AM EST 12/23/19 Active venlafaxine XR (Effexor XR) 150 MG 24 hr capsuleIndication s:Moderate major depression (CMS/HCC) (HCC),Other depression Take 1 capsule (150 mg) by mouth Once per day. Do not crush or chew. 30 capsule 11 01/25/20 25 026 Active Minoxidil (Minoxidil for Men) 5 % foamIndications:H air loss To apply to the affected area at bedtime. 60 g 01/25/20 25 Active Active Problems Problem Noted Date Diagnosed Date Moderate major depression (CMS/HCC) 12/22/2024 SERENA (generalized anxiety disorder) 10/05/2024 Vaginal dryness 03/20/2024 Obesity (BMI 30-39.9) 03/03/2024 Resolved Problems Problem Noted Date Diagnosed Date Resolved Date Mild episode of depression 10/05/2024 0 12/22/2024 Encounters * This document contains information received from the source organization and may not represent a complete record from that organization. Date Type Department Care Team Description 01/24/2025 10:45 AM EDT Office Visit [facility] [address] [place] [address] Jameson Tang MD Obesity (BMI 30-39.9) (Primary Dx); Annual physical exam; SERENA (generalized anxiety disorder); Moderate major depression (CMS/HCC) (HCC); Other depression; Hair loss 01/24/2025 Travel 01/23/2025 Telephone [facility] [address] [place] [address] Jameson Tang MD Chart Prep 01/17/2025 Patient Outreach [address] [address] Jameson Tang MD Pre-visit Planning (SDOH screening completed on 09/11/24) 12/26/2024 Results Follow-Up [address] [address] Elva Allen RN Urinalysis with Reflex to Microscopic, Comprehensive Metabolic Panel, Fasting, Chlamydia/Trichomonas/ Neisseria gonorrhoeae, PCR, Urine 12/25/2024 Results Follow-Up [address] [address] Jameson Tang MD HIV-1/2 Antigen and Antibodies, Fourth Generation, with Reflexes, Hepatitis C Antibody with Reflex to HCV, RNA, Quantitative, Real-Time PCR, RPR (Monitor) with Reflex to Titer, Additional followed-up results: 5 12/22/2024 Orders Only [address] [address] Jameson Tang MD 12/22/2024 Patient Outreach [address] [address] Jameson Tang MD Care Coordination (W outreach [facility] employment/jobs referral completed) 12/21/2024 2:00 PM EDT Office Visit [facility] [address] [place] [phone] Jameson Tang MD Monilial intertrigo (Primary Dx); Other depression; Screen for STD (sexually transmitted disease); Obesity (BMI 30-39.9) 12/21/2024 Travel 12/20/2024 Travel 12/20/[address] [facility] [place] [facility] [address] [place] [address] Jameson Tang MD Chart Prep 12/14/2024 Patient Outreach [address] [address] Jameson Tang MD Pre-visit Planning (SDOH screening completed on 09/11/24) from Last 3 Months Immunizations Immunization Administration Dates Next Due HPV, Quadrivalent 10/23/2011 Influenza Injectable Quadriv alant Preservative Free IIV4 MDCK 12/16/2017 Influenza injectable quadrivalent preservative f ree 01/23/2020 Influenza, IIV3, injectable 05/13/2017, 4 PPD Test 03/02/2014 Tdap 01/23/2020,08/02/2017 Family History Medical History Relation Name Comments No Known Problems Maternal Grandfather No Known Problems Maternal Grandmother Diabetes type II Mother Kidney failure Mother Kidney transplant Mother hypertension Mother Myotonic muscle dystrophy Sister wheel chair bound Sister Relation Name Status Comments Maternal Grandfather Maternal Grandmother Mother Sister Social History Tobacco Use Types Packs/Day Years Used Date Smoking Tobacco: Never Smokeless Tobacco: Never Tobacco Cessation:Counseling Given: No Depression Answer Date Recorded Patient Health Questionnaire-9 [...] Don't know 06/10/2023 12 :30 PM EDT Last Filed Vital Signs Vital Sign Reading Time Taken Comments Blood Pressure 119/62 01/24/2025 10:50 AM EDT Pulse 72 01/24/2025 10:50 AM EDT Temperature 37.1 C (98.8 F) 01/24/2025 10:50 AM EDT Respiratory Rate 16 01/24/2025 10:50 AM EDT Oxygen Saturation 98% 12/21/2024 2:02 PM EDT Inhaled Oxygen Concentration - - Weight 79.8 kg (176 lb) 01/24/2025 10:50 AM EDT Height 154.9 cm (5' 1 ) 01/24/2025 10:50 AM EDT Body Mass Index 33.25 01/24/2025 10:50 AM EDT Plan of Treatment Health Maintenance Due Date Last Done Comments Family Planning (PISQ) 09/23/2003 Hepatitis B Vaccines (1 of 3 - 19+ 3-dose series) 09/23/2007 Pneumococcal Vaccine: Pediatrics (0 to 5 Years) and At-Risk Patients (6 to 49) Years (1 of 2 - PCV) 09/23/2007 Pap Smear 2009 HPV Vaccines (2 - 3-dose series) 11/20/2011 10/23/2011 Cervical Cancer Screening 2018 HPV/Cotest 2018 COVID-19 Vaccine ( - season) 2024 Influenza Vaccine (#1) 2024 , 12/16/2017, 05/13/2017, Additional history exists Depression Monitoring 06/20/2025 12/21/2024, 025 Alcohol/Substance Use Screening 09/11/2025 09/11/2024 Disability Screening 09/11/2025 09/11/2024 SDOH Screening 09/11/2025 09/11/2024 Tobacco Screening 01/24/2026 01/24/2025 Lipid Panel 12/22/2029 12/22/2024, 11/10/2023 DTaP/Tdap/Td Vaccines (3 - Td or Tdap) 01/22/2030 01/23/2020, 08/02/2017 Zoster Vaccines (1 of 2) 2038 RSV Patients and Patients Aged 60 years or older (1 - 1-dose 75+ series) 09/23/2063 HIV Screening Completed 12/22/2024, 10/27, 08/18/2021, Additional history exists Hepatitis C Screening Completed 12/22/2024, 024 HIB Vaccines Aged Out No longer eligi ble based on patient's age to complete this topic Hepatitis A Vaccines Aged Out No long er eligible based on patient's age to complete this topic IPV Vaccines Aged Out No longer eligi ble based on patient's age to complete this topic Meningococcal B Vaccine Aged Out No l onger eligible based on patient's age to complete this topic Meningococcal Vaccine Aged Out No radha josé antonio eligible based on patient's age to complete this topic RSV under 20 months Aged Out No longe r eligible based on patient's age to complete this topic Rotavirus Vaccines Aged Out No longer eligible based on patient's age to complete this topic Procedures Procedure Name Priority Date/Time Associated Diagnosis Comments CHLAMYDIA/TRICHOMONAS/ NEISSERIA GONORRHOEAE, PCR, URINE Routine 12/22/2024 10:46 AM EDT URINALYSIS WITH REFLEX TO MICROSCOPIC Routine 12/22/2024 10:46 AM EDT COMPREHENSIVE METABOLIC PANEL, FASTING Routine 12/22/2024 10:35 AM EDT VITAMIN B12/FOLATE, SERUM PANEL Routine 12/22/2024 10:35 AM EDT Other depression MAGNESIUM Routine 12/22/2024 10:35 AM EDT Other depression TSH W/REFLEX TO FT4 Routine 12/22/2024 1 0:35 AM EDT Other depression LIPID PANEL, STANDARD Routine 12/22/2024 10:35 AM EDT Other depression CBC WITH AUTO DIFFERENTIAL Routine 12/22/2024 10:35 AM EDT Other depression RPR (MONITOR) W/REFL TITER Routine 12/22/2024 10:35 AM EDT Screen for STD (sexually transmitted disease) HEPATITIS C AB W/REFL TO HCV RNA, QN, PCR Routine 12/22/2024 10:35 AM EDT Screen for STD (sexually transmitted disease) HIV 1/2 ANTIGEN/ANTIBODY, FOURTH GENERATION W/RFL Routine 12/22/2024 10:35 AM EDT Screen for STD (sexually transmitted disease) from Last 3 Months Results * Chlamydia/Trichomonas/Neisseria gonorrhoeae, PCR, Urine (12/22/2024 10:46 AM EDT) CT PCR, Urine NOT DETECTED Not Detect. [facility] Comment:A not detected test result does [...] NG PCR, Urine NOT DETECTED Not Detect. [facility] Comment:A not detected test result does [...] URINE ORDERABLES Final Result Performing Organization Address [facility] Co de Phone Number [facility] [address] [place] [phone] * Urinalysis with Reflex to Microscopic (12/22/2024 10:46 AM EDT) Color Urine Yellow [facility] Appearance Urine Clear [facility] PH 7.0 5.0 - 9.0 [facility] Glucose Urine UA Negative Negative mg/dL [facility] Urine Blood Negative Negative [facility] Specific [place] - Urine 1.025 1.005 - 1.025 [facility] Urine Protein Negative Neg-Trace mg/dL [facility] Urine Ketones Negative Negative mg/dL [facility] Nitrite Urine Negative Negative [facility] Leukocyte Esterase Urine Negative Negative [facility] 12/22/2024 10:4 6 AM EDT 12/22/2024 2:21 PM EDT us Jameson Tang MD LAB URINE ORDERABLES Final Result Performing Organization Address [facility] de Phone Number [facility] [address] [place] [phone] * (ABNORMAL) Comprehensive Metabolic Panel, Fasting (12/22/2024 10:35 AM EDT) Sodium 142 135 - 145 mmol/L [facility] Potassium 3.7 3.3 - 5.1 mmol/L [facility] Chloride 109(H) 96 - 108 mmol/L [facility] Carbon Dioxide 28 22 - 29 mmol/L [facility] Anion Gap 9(L) 12 - 20 [facility] Urea Nitrogen (BUN) 14 9 - 16 mg/dL [facility] Creatinine, Serum 0.73 0.5 - 1.4 mg/dL [facility] Estimated Glomerular Filt Rate >60 [facility] Comment:Chronic Kidney Disea se: Estimated GFR < 60 mL/min/[id number] Kidney Disease: Estimated GFR < 15 mL/min/1.73m2 Glucose Fasting 89 60 - 99 mg/dL [facility] Calcium 8.8 8.4 - 10.2 mg/dL [facility] Bilirubin, Total 0.6 0.0 - 1.0 mg/dL [facility] Aspartate Amino Transferase 24 5 - 31 U/L [facility] Alanine Aminotransferase 14 0 - 31 U/L [facility] Total Protein 6.2(L) 6.5 - 8.0 g/dL [facility] Albumin Level 3.9 3.5 - 5.0 g/dL [facility] Alkaline Phosphatase 70 39 - 117 U/L [facility] 12/22/2024 10:3 5 AM EDT 12/22/2024 2:24 PM EDT us Jameson Tang MD LAB BLOOD ORDERABLES Final Result [facility] [address] [place] [phone] * Vitamin B12/Folate, Serum Panel (12/22/2024 10:35 AM EDT) Vitamin B12 380 200 - 900 pg/mL [facility] Comment:NORMAL 200-900 PG/ML INDETERMINATE 160-199 PG/ML DEFICIENT < 160 PG/ML Folate 10.2 > or = 4.0 ng/mL [facility] Comment:Reference Values:> o r = 4.0 ng/mL< 4.0 ng/mL suggests folate deficiency Methotrexate, aminopterin and folinic acid(leucovorin) are chemotherapeutic agents whose molecularstructures are similar to folate; therefore, the Architectfolate assay cannot be used for patients using these drugs. Blood Venous blood specimen / Unknown 12/22/2024 10:35 AM EDT 12/22/2024 2:24 PM EDT us Jameson Tang MD LAB BLOOD ORDERABLES Final Result Performing Organization Address [facility]/ZIP Co de Phone Number [facility] [address] [place] [phone] * TSH with Reflex to Free T4 (12/22/2024 10:35 AM EDT) TSH reflex Free T4 0.68 0.32 - 4.0 uIU/mL [facility] Blood Venous blood specimen / Unknown 12/22/2024 10:35 AM EDT 12/22/2024 2:24 PM EDT us Jameson Tang MD LAB BLOOD ORDERABLES Final Result Performing Organization Address [facility] Co de Phone Number [facility] [address] [place] [phone] * CBC auto differential (12/22/2024 10:35 AM EDT) Pathologist [facility] White Blood Count 6.9 4.8 - 10.8 X10*3/uL [facility] Red Blood Count 4.26 4.20 - 5.50 X10*6/uL [facility] Hemoglobin 13.0 12.0 - 16.0 g/dl [facility] Hematocrit 38.5 37.0 - 47.0 % [facility] Mean Corpuscular Volume 90.4 80.0 - 98.0 fL [facility] Mean Corpuscular Hemoglobin 30.5 27.0 - 33.0 pg [facility] Mean Corpuscular HGB Conc 33.8 31.0 - 35.0 g/dl [facility] Red Cell Distribution Width 13.2 11.0 - 16.0 % [facility] Platelet Count 227 160 - 400 X10*3/uL [facility] Mean Platelet Volume 12.0 9.4 - 12.3 fL [facility] Neutrophils Percent Auto 61.2 45 - 73 % [facility] Imm Gran Pct Auto 0.3 0.0 - 0.4 % [facility] Lymphocytes Percent Auto 29.3 20 - 40 % [facility] Monocytes Percent Auto 6.6 2 - 11 % [facility] Eosinophils Percent Auto 2.2 0 - 4 % [facility] Basophils Percent Auto 0.4 0 - 2 % [facility] NRBC Pct Auto 0.0 0.0 - 0.2 /100WBC [facility] Neutrophils Absolute Auto 4.2 2.0 - 8.3 x10*3/uL [facility] Imm Gran Abs Auto 0.02 0.00 - 0.03 X10*3/uL [facility] Lymphocytes Absolute Auto 2.0 1.2 - 4.9 X10*3/uL [facility] Monocytes Absolute Auto 0.5 0.1 - 1.2 X10*3/uL [facility] Eosinophils Absolute Auto 0.2 0.0 - 0.4 X10*3/uL [facility] Basophils Absolute Auto 0.0 0.0 - 0.2 X10*3/uL [facility] NRBC Abs Auto 0.000 0.0 - 0.012 X10*3/uL [facility] Blood Venous blood specimen / Unknown 12/22/2024 10:35 AM EDT 12/22/2024 2:21 PM EDT Jameson Tang MD LAB BLOOD ORDERABLES Final Result [facility] [address] [place] [phone] * Hepatitis C Antibody with Reflex to HCV, RNA, Quantitative, Real-Time PCR (12/22/2024 10:35 AM EDT) Hepatitis C Antibody Nonreactive Nonreactive [facility] Comment:Antibodies to HCV no t detected; does not exclude early acuteHCV infection. Blood Venous blood specimen / Unknown 12/22/2024 10:35 AM EDT 12/22/2024 2:24 PM EDT us Jameson Tang MD LAB BLOOD ORDERABLES Final Result Performing Organization Address [facility] Co de Phone Number [facility] [address] [place] [phone] * RPR (Monitor) with Reflex to??Titer (12/22/2024 10:35 AM EDT) RPR (Monitor) w/Refl Titer NON-REACTI VE NON-REACT LIAN [facility] Comment:THIS TEST WAS PERFOR MED AT:[address] [place] [phone] HUNT MD Rapid Plasma Reagin Ab Titer TNP [facility] Blood Venous blood specimen / Unknown 12/22/2024 10:35 AM EDT 12/22/2024 2:24 PM EDT us Jameson Tang MD LAB BLOOD ORDERABLES Final Result Performing Organization Address [facility] Co de Phone Number [facility] [address] [place] [phone] * HIV-1/2 Antigen and Antibodies, Fourth Generation, with Reflexes (12/22/2024 10:35 AM EDT) HIV AB/AG Nonreactive Nonreactive [facility] Comment:HIV-1 p24 Ag and/or HIV-1/HIV-2 Ab not detected.A test result that is nonreactive does not exclude thepossibility of exposure to or infection with HIV-1 and/orHIV-2. Nonreactive results in this assay for individualswith prior exposure to HIV-1 and/or HIV-2 may be due toantigen and antibody levels that are below the limit ofdetection of this assay.The [employer] HIV Ag/Ab Combo assay result andsupplemental assay results should be interpreted inconjunction with the patient's clinical presentation,history and other laboratory results. If the results areinconsistent with clinical evidence, additional testing issuggested to confirm the result. Blood Venous blood specimen / Unknown 12/22/2024 10:35 AM EDT 12/22/2024 2:24 PM EDT us Jameson Tang MD LAB BLOOD ORDERABLES Final Result Performing Organization Address [facility] Co de Phone Number [facility] [address] [place] [phone] * Magnesium (12/22/2024 10:35 AM EDT) Magnesium 2.2 1.6 - 2.6 mg/dL [facility] Blood Venous blood specimen / Unknown 12/22/2024 10:35 AM EDT 12/22/2024 2:24 PM EDT us Jameson Tang MD LAB BLOOD ORDERABLES Final Result Performing Organization Address [facility] Phone Number [facility] [address] [place] [phone] * Lipid Panel, Standard (12/22/2024 10:35 AM EDT) Triglycerides 57 <150 mg/dL [facility] Comment:Desirable Triglyceri de: less than 150 mg/dLBorderline High Triglyceride 150-199 mg/dLHigh Triglyceride: 200-499 mg/dLVery High Triglyceride: greater than or equal to 5OO mg/dL Cholesterol 127 <200 mg/dL [facility] Comment:Desirable Cholestero l: less than 200 mg/dLBorderline High Cholesterol: 200-239 mg/dLHigh Cholesterol: greater than 239 mg/dL LDL Cholesterol Calculated 73 <100 mg/dL [facility] Comment:Desirable LDL: less than 100 mg/dLNear Optimal/Above Optimal LDL: 110- 129 mg/dLBorderline High LDL: 130-159 mg/dLHigh LDL: 160-189 mg/dLVery High LDL: greater than or equal to 190 mg/dL HDL Cholesterol 43 >40 mg/dL [facility] Comment:Desirable HDL: great er than 40 mg/dL Note: This HDL assay may give artificially low results in patients with liver disease. Blood Venous blood specimen / Unknown 12/22/2024 10:35 AM EDT 12/22/2024 2:24 PM EDT Jameson Tang MD LAB BLOOD ORDERABLES Final Result [facility] [address] [place] [phone] from Last [address] [place], [place] [id number] C3 Care Teams Comptometer Operator Relationship Specialty Start Date End Date Jameson Tang MD [address] [place] [address] PCP - General Internal Medicine 11/10/23
--- OUTSIDE RECORDS SUMMARY | 2025-03-13 20:25 | XMS_ITS | Encounter Summary ---
Author Organization [employer] Address [address] [facility] 7t [place] [address] Care Team Providers Care Records Tech Name Role Phone Jameson Tang MD Primary Care Provider [phone] Encounter Details Date Type Department Care Team ([facility] st Contact Info) Description 03/10/2024 Orders Only [facility] [address] [place] [address] Jameson Tang MD [address] [place] [address] Obesity (BMI 30-39.9) (Primary Dx) Social History Tobacco Use Types [...] as of this encounter Visit Diagnoses Diagnosis Obesity (BMI 30-39.9)- Primary documented in this encounter Additional Health Concerns Assessment Noted Time PHQ-9 Depression Total Score: 7 11/10/19 24 10:56 AM EDT documented as of this encounter Care Teams Records Tech Relationship Specialty Start Date End Date Jameson Tang MD [address] [place] [phone] PCP - General Internal Medicine 11/10/23 documented as of this encounter
--- OUTSIDE RECORDS SUMMARY | 2025-03-13 20:25 | XMS_ITS | Encounter Summary ---
Author Organization [employer] Address [address] [facility] 7 [place] [address] Care Team Providers Care Wiping Rag Washer Name Role Phone Jameson Tang MD Primary Care Provider [phone] Encounter Details Date Type Department Care Team ([facility] st Contact Info) Description 11/06/2024 Orders Only [facility] [address] [place] [address] Jameson Tang MD [address] [place] [address] Obesity (BMI 30-39.9) Social History Tobacco Use Types Packs/Day Years Used Date Smoking Tobacco: Never Smokeless Tobacco: Never Depression Answer Date Recorded Patient Health Questionnaire-9 Score 9 09/11/2024 Patient Health Questionnaire-9 Score 9 09/11/2024 Last PHQ-9: Questionnaire Data Not on file 0 09/11/2024 Housing Stability Answer Date Recorded What is your housing situation today? I have lisamary jane barton 09/11/[address] you [...] Answer Date Recorded Patient Health Questionnaire-2 Score 0 09/11/2024 Internet Access Answer Date Recorded Internet Access [...] this encounter Visit Diagnoses Diagnosis Obesity (BMI 30-39.9) documented in this encounter Additional Health Concerns Assessment Noted Time PHQ-9 Depression Total Score: 9 09/12/19 25 4:21 PM EDT documented as of this encounter Care Teams Wiping Rag Washer Relationship Specialty Start Date End Date Jameson Tang MD [address] [place] [phone] PCP - General Internal Medicine 11/10/23 documented as of this encounter
--- OUTSIDE RECORDS SUMMARY | 2025-03-13 20:25 | XMS_ITS | Encounter Summary ---
Author Organization [employer] Address [address] [facility] 7 [place] [address] Care Team Providers Care Head Of Quality Name Role Phone Jameson Tang MD Primary Care Provider [phone]- [phone] Reason for Visit * Reason Onset Date Comments Lab Orders 11/26/2023 Encounter Details Date Type Department Care Team ([facility] st Contact Info) Description 11/26/2023 Telephone [facility] MEDICINE [address] [place] [address] Jameson Tang MD [address] [place] [address] Lab Orders Social History Tobacco Use Types Packs/Day Years [...] encounter Miscellaneous Notes * Telephone Encounter - Jeronimo Purcell - 11/26/2023 3:30 PM EDT TC from pt requesting call back regarding Results. Type of results: Lab Date when done: 11/09 Facility: [facility] documented in this encounter Plan of Treatment Not on file documented as of this encounter Visit Diagnoses Not on filedocumented in this encounter Additional Health Concerns Assessment Noted Time PHQ-9 Depression Total Score: 7 11/10/19 10:56 AM EDT documented as of this encounter Care Teams Head Of Quality Relationship Specialty Start Date End Date Jameson Tang MD [address] [place] [address] PCP - General Internal Medicine 11/10/23 documented as of this encounter
[2025-03-13 20:53] VITALS: BP 97/55; PULSE 97; RESP 19; TEMP 37.8; O2SAT 98
[2025-03-13 21:05] VITALS: BP 97/55; PULSE 97; RESP 19; TEMP 37.8; O2SAT 98
== END 2025-03-13 21:06 | disposition home or self-care (01) ==
PROVIDERS: Physician Assistant; Emergency Provider Emergency Medicine; PCP Internal Medicine
DX: J10.1 Influenza due to other identified influenza virus with other respiratory manifestations (principal); R11.2 Nausea with vomiting, unspecified; E87.6 Hypokalemia; M79.10 Myalgia, unspecified site; R19.7 Diarrhea, unspecified; J45.909 Unspecified asthma, uncomplicated; Z03.818 Encounter for observation for suspected exposure to other biological agents ruled out
CPT/HCPCS: 36415; 71045; 80053; 83735; 84702; 85025; 87637; 87651; 99283

== ENCOUNTER → 2025-03-13 17:58 | Outpatient (BNV) | payer MEDICAID, SELFPAY | PROVIDERS: PCP Internal Medicine; Visit Provider Radiology Diagnostic Radiology | DX: J18.9 Pneumonia, unspecified organism (principal) | CPT/HCPCS: 71045 ==

== ENCOUNTER 2025-03-18 13:38 | Emergency (ER) | payer MEDICAID, SELFPAY ==
--- NOTE | 2025-03-18 13:50 | ED.EYEPROB ---
HPI - Eye Problem General Chief complaint: Eye Problems Stated complaint: L eye sty Time Seen by Provider: 03/18/25 13:55 History of Present Illness ED Provider: Sonia Pham NP HPI Narrative: 34-year-old female otherwise healthy presents to the ED with chief complaints of left upper eyelid swelling, redness ongoing since waking this morning. Denies any recent eye injury, trauma, or anything in the eye. Reports that she has a stye in the eye, and now the lid is red. Does not wear contact lenses, but does wear glasses. Is not currently wearing makeup. Patient reports that she was out of work for 1 week due to a viral illness, reports she had flu. No chest pain or pressure, shortness of breath. No fever, chills. No abdominal pain, nausea or vomiting, urinary complaints. No recent head injury or trauma. No dizziness, lightheadedness. No visual disturbances, diplopia. Related Data Home Medications ?Medication ?Instructions ?Recorded ?Confirmed cetirizine 10 mg tablet (Zyrtec) 10 mg PO DAILY 01/16/24 01/16/24 ibuprofen 200 mg tablet 400 mg PO Q8H PRN Pain 01/16/24 01/16/24 semaglutide (weight loss) 0.5 0.5 mg subcut TU@0900 01/16/24 01/16/24 mg/0.5 mL subcutaneous pen injector (Ann) Previous Rx's ?Medication ?Instructions ?Recorded albuterol sulfate 90 mcg/actuation 2 puff inhalation Q6H PRN 01/17/24 aerosol inhaler shortness of breath or wheezing #8.5 grams azithromycin 500 mg tablet 500 mg PO DAILY 3 days #3 tabs 01/17/24 codeine 10 mg-guaifenesin 100 mg/5 10 ml PO Q4H PRN cough #180 mL 01/17/24 mL oral liquid (Guaifenesin AC) prednisone 20 mg tablet See Rx Instructions .Route 01/17/24 .COMPLEX #18 tabs ondansetron 4 mg disintegrating 4 mg PO Q6H PRN nausea and 04/29/24 tablet vomiting #14 tabs acetaminophen 500 mg tablet 1,000 mg (2 x 500 mg) PO Q6H PRN 06/24/24 (Tylenol Extra Strength) fever or pain #20 tabs diphenhydramine HCl 25 mg capsule 50 mg (2 x 25 mg) PO Q6H PRN 06/24/24 headache, nausea, vomiting #20 caps ibuprofen 400 mg tablet 400 mg PO TID PRN fever or pain 06/24/24 #30 tabs metoclopramide HCl 10 mg tablet 10 mg PO Q6H PRN nausea and 06/24/24 (Reglan) vomiting #14 tabs benzonatate 100 mg capsule 100 mg PO TID PRN cough #15 caps 03/13/25 ibuprofen 600 mg tablet 600 mg PO Q6H PRN fever or pain 03/13/25 #30 tabs loperamide 2 mg tablet 2 mg PO Q4H PRN loose stool #20 03/13/25 tabs ondansetron HCl 4 mg tablet 4 mg PO Q6H PRN nausea and 03/13/25 vomiting #14 tabs prednisone 50 mg tablet 50 mg PO DAILY #4 tabs 03/13/25 erythromycin 5 mg/gram (0.5 %) eye 1 appl ophthalmic-Left TID 7 days 03/18/25 ointment #3.5 grams Allergies Allergy/AdvReac Type Severity Reaction Status Date / Time cat dander (CAT DANDER) Allergy Intermediate ITCHY Verified 03/18/25 13:53 WATERY EYES dog dander (DOGS) Allergy Intermediate ITCHY Verified 03/18/25 13:53 WATERY EYES GRASS Allergy Intermediate ITCHY, Uncoded 03/18/25 13:53 HIVES Review of Systems Review of Systems: ROS is otherwise negative unless mentioned in HPI. [facility] Past Medical History Medical History H/O eye muscle disorder Asthma Post depression Surgical History Hx of breast reduction, elective Hx of tonsillectomy Social History Social History (Updated 02/22/23 @ 15:03 by Dalila Javier CMA) Household Members: Family Housing: House Alcohol intake: never Patient Tobacco Use Status: Never used Tobacco Substance Use Type: Marijuana Advance Directives: No Advance Directives Information Provided: No service: No Current occupational status: employed Physical Exam Exam: Exam: Nursing notes and vital signs reviewed. Constitutional: Well-appearing, NAD. Alert. Oriented X3. Eyes: Pupils equal, round and reactive to light. EOMI. Left upper lid with redness, inflammation of the eyelid glands. Blepharitis. Small stye to mid-lid. Neck: Normal inspection. Neck supple. CVS:Pulses normal. Respiratory: No respiratory distress. Skin: Skin warm and dry. Normal skin color. Extremities: No lower extremity edema. Neuro: Oriented X 3. No motor deficit. Vital Signs: Vital Signs: Last Vital Signs Temp 98 F 03/18/25 13:52 Pulse 84 03/18/25 13:52 Resp 16 03/18/25 13:52 BP 132/60 03/18/25 13:52 Pulse Ox 98 03/18/25 13:52 O2 Del Method Room Air 03/18/25 13:52 BMI result Body Mass Index 31.4 Medical Decision Making Medical Decision Making MDM Narrative: Well-appearing female, NAD, presenting to the ED for evaluation of a stye, as well as redness and swelling to the left upper lid. This has been ongoing for about 1 day, she woke up this morning and felt that the lid was more red, and inflamed in comparison to yesterday, as she noted a stye yesterday. Clinically she has blepharitis of the left upper lid. She also has a stye to the mid-eyelid. She does wear glasses, but denies contact lenses. She recently had a viral illness, and this is likely post viral. I have recommended warm compresses, Tylenol ibuprofen [id number]. She expressed concern that she was out of work for a week. Currently I do not have concern for conjunctivitis, range of motion of the eyes intact, vision is intact, there was never any trauma to the eye, or any particles in the eye. No indication for eye stain exam while in the ED. We will prescribe a course of erythromycin ophthalmic if she develops any thick yellow-green discharge from the eye, and have her follow up outpatient with Ophthalmology. Patient is agreeable to plan of care, given return precautions to the ED. Differential Diagnosis Differential Diagnoses: The differential diagnosis associated with the presentation includes Blepharitis, stye, preseptal cellulitis Admission/Observation Consideration of admission/observation: Escalation of care including admission/observation considered (Not indicated) External Record Review External record reviewed: Outside ED record Social Determinants Patient?s care significantly limited by Social Determinants of Health including: Problems related to primary support group Discharge Plan Discharge Clinical Impression: Hordeolum externum left upper eyelid Blepharitis Qualifiers: Blepharitis type: unspecified type Laterality: left Eyelid: upper Qualified Code(s): H01.004 - Unspecified blepharitis left upper eyelid Patient Disposition: Home, Self-Care Instructions: Stye (ED), Blepharitis (ED) Additional Instructions: As we discussed, this appears to be blepharitis, inflation of the glands of the eyelid. It also appears that you have a stye to the left upper lid. Please use [id number] Tylenol, ibuprofen for pain control. We also recommend warm compresses several times per day, and gentle eyelid care. I have prescribed you a course of erythromycin ointment, if you develop any thick, yellow drainage from the eye. Otherwise, please seek evaluation with Ophthalmology in the next 1-3 days. With any worsening complaints, return back to the ED for additional assessment. Prescriptions: New erythromycin 5 mg/gram (0.5 %) ointment 1 appl ophthalmic-Left TID 7 Days Qty: 3.5 0RF No Action Wegovy 0.5 mg/0.5 mL pen injector 0.5 mg subcut TU@0900 cetirizine [Zyrtec] 10 mg Tablet 10 mg PO DAILY ibuprofen 200 mg Tablet 400 mg PO Q8H PRN (Reason: Pain) prednisone 20 mg tablet See Rx Instructions .Route .COMPLEX Qty: 18 0RF Rx Instructions: 20 mg orally; 3 tabs daily for 3 days, 2 tabs daily for 3 days, 1 tab daily for 3 days azithromycin 500 mg tablet 500 mg PO DAILY 3 Days Qty: 3 0RF codeine-guaifenesin [Guaifenesin AC] 10-100 mg/5 mL liquid 10 ml PO Q4H PRN (Reason: cough) Qty: 180 0RF albuterol sulfate 90 mcg/actuation HFA aerosol inhaler 2 puff inhalation Q6H PRN (Reason: shortness of breath or wheezing) Qty: 8.5 0RF ondansetron 4 mg tablet,disintegrating 4 mg PO Q6H PRN (Reason: nausea and vomiting) Qty: 14 0RF acetaminophen [Tylenol Extra Strength] 500 mg tablet 1,000 mg PO Q6H PRN (Reason: fever or pain) Qty: 20 0RF diphenhydramine HCl 25 mg capsule 50 mg PO Q6H PRN (Reason: headache, nausea, vomiting) Qty: 20 0RF ibuprofen 400 mg tablet 400 mg PO TID PRN (Reason: fever or pain) Qty: 30 0RF metoclopramide HCl [Reglan] 10 mg tablet 10 mg PO Q6H PRN (Reason: nausea and vomiting) Qty: 14 0RF prednisone 50 mg tablet 50 mg PO DAILY Qty: 4 0RF ondansetron HCl 4 mg tablet 4 mg PO Q6H PRN (Reason: nausea and vomiting) Qty: 14 0RF loperamide 2 mg tablet 2 mg PO Q4H PRN (Reason: loose stool) Qty: 20 0RF Rx Instructions: administer after each loose stool until symptoms controlled; do not exceed 8 mg per 24 hrs benzonatate 100 mg capsule 100 mg PO TID PRN (Reason: cough) Qty: 15 0RF ibuprofen 600 mg tablet 600 mg PO Q6H PRN (Reason: fever or pain) Qty: 30 0RF Referrals: Elan Leonardo [Physician, Ophthalmology] Interventions: ED Discharge Assessment Last Done: 03/18/25 14:10 Print Language: Canadian
[2025-03-18 13:52] VITALS: BP 132/60; PULSE 84; RESP 16; TEMP 36.6; O2SAT 98; BMI 31.4
--- OUTSIDE RECORDS SUMMARY | 2025-03-18 14:00 | XMS_ITS | Encounter Summary ---
Author Organization [employer] Address [address] [facility] 7 [place] [address] Care Team Providers Care Dust Handler Name Role Phone Jameson Tang MD Primary Care Provider [phone] Encounter Details Date Type Department Care Team ([facility] st Contact Info) Description 01/24/2024 Orders Only [facility] CHC MED & PEDS [address] [place] [address] Jameson Tang MD [address] [place] [address] Obesities, morbid (CMS/HCC) (Primary Dx) Social History [...] documented as of this encounter Care Teams Dust Handler Relationship Specialty Start Date End Date Jameson Tang MD [address] [place] [address] PCP - General Internal Medicine 11/10/23 documented as of this encounter
--- OUTSIDE RECORDS SUMMARY | 2025-03-18 14:00 | XMS_ITS | Encounter Summary ---
Author Organization [employer] Address [address] [facility] 7 [place] [address] Care Team Providers Care Account Support Rep Name Role Phone Jameson Tnag MD Primary Care Provider [phone] Encounter Details Date Type Department Care Team ([facility] st Contact Info) Description 11/06/2024 Orders Only [facility] CHC MED & PEDS [address] [place] [address] Jameson Tang MD [address] [place] [address] Obesity (BMI 30-39.9) Social History Tobacco Use [...] documented as of this encounter Care Teams Account Support Rep Relationship Specialty Start Date End Date Jameson Tang MD [address] [place] [address] PCP - General Internal Medicine 11/10/23 documented as of this encounter
--- OUTSIDE RECORDS SUMMARY | 2025-03-18 14:00 | XMS_ITS | Encounter Summary ---
Author Organization [employer] Address [address] [place] [address] 7 [place] [address] Care Team Providers Care Game Show Host Name Role Phone Jameson Tang MD Primary Care Provider [phone] Encounter Details Date Type Department Care Team ([facility] st Contact Info) Description 02/14/2024 Orders Only [facility] CHC MED & PEDS [address] [place] [address] Jameson Tang MD [address] [place] [address] Obesities, morbid (CMS/HCC) (Primary Dx) Social History [...] AM EST Narrative 02/24/2024 10:50 AM EST [place] [address] XRay Report Signed Patient: Jackie Grande MR#: [id number] : 1990 Acct:[id number] Age/Sex: 33 / F ADM Date: 02/24/24 Loc: HO.ED Attending Dr: Ordering Physician: Generic ED Physician Date of Service: 02/24/24 Procedure(s): XR ankle RT 2V Accession Number(s): [id number] cc: Jameson Tang MD; Generic ED Physician [...] 02/24/24 1046 DD/ 1020 TD/TT: 02/24/24 1029 Timber Trimmer: Procedure Note Donotuseinterpreter, Image - 02/28/[address] [address] XRay Report Signed Patient: Jackie GrandeMR#: [id number] : 1990Acct:[id number] Age/Sex: 33 / FADM Date: 02/24/24 Loc: HO.ED Attending Dr: Ordering Physician: Generic ED Physician Date of Service: 02/24/24 Procedure(s): XR ankle RT 2V Accession Number(s): [id number] cc: Jameson Tang MD; Generic ED Physician [...] 02/24/24 1046 DD/ 1020 TD/TT: 02/24/24 1029 Timber Trimmer: [facility] External Provider IMG XR PROCEDURES Final Result * XR Foot 1-2 Views Right (02/24/2024 10:20 AM EST) Anatomical Region Laterality Modality Lower Extremities, Foot Right Radiogra phic Imaging 02/24/2024 10:2 0 AM EST Narrative 02/24/2024 10:50 AM EST [address] [address] XRay Report Signed Patient: Jackie Grande MR#: [id number] : 1990 Acct:[id number] Age/Sex: 33 / F ADM Date: 02/24/24 Loc: HO.ED Attending Dr: Ordering Physician: Generic ED Physician Date of Service: 02/24/24 Procedure(s): XR foot RT 2V Accession Number(s): [id number] cc: Jameson Tang MD; Generic ED Physician [...] by: Yonis Schafer MD 02/24/2024 10:46 AM [facility] Dictated By: Yonis Schafer MD Signed By: <Electronically signed by Yonis Schafer MD in OV> 02/24/24 1046 DD/ 1020 TD/TT: 02/24/24 1029 Timber Trimmer: SR Procedure Note Donotuseinterpreter, Image - 02/28/[address] [address] XRay Report Signed Patient: Jackie GrandeMR#: [id number] : 1990Acct:[id number] Age/Sex: 33 / FADM Date: 02/24/24 Loc: HO.ED Attending Dr: Ordering Physician: Generic ED Physician Date of Service: 02/24/24 Procedure(s): XR foot RT 2V Accession Number(s): [id number] cc: Jameson Tang MD; Generic ED Physician [...] by: Yonis Schafer MD 02/24/2024 10:46 AM [facility] Dictated By: Yonis Schafer MD Signed By: <Electronically signed by Yonis Schafer MD in OV> 02/24/24 1046 DD/ 1020 TD/TT: 02/24/24 1029 Timber Trimmer: [facility] External Provider IMG XR PROCEDURES Final Result documented in this encounter Visit Diagnoses Diagnosis Obesities, morbid (HCC)- Primary Morbid obesity documented in this encounter Additional Health Concerns Assessment Noted Time PHQ-9 Depression Total Score: 7 11/10/19 24 10:56 AM EDT documented as of this encounter Care Teams Game Show Host Relationship Specialty Start Date End Date Jameson Tang MD [address] [place] [address] PCP - General Internal Medicine 11/10/23 documented as of this encounter
--- OUTSIDE RECORDS SUMMARY | 2025-03-18 14:00 | XMS_ITS | Encounter Summary ---
Author Organization [employer] Address [address] [facility] 7 [place] [address] Care Team Providers Care Sap Manager Name Role Phone Jameson Tang MD Primary Care Provider [phone]- [phone] Reason for Visit * Reason Onset Date Comments Lab Orders 11/26/2023 Encounter Details Date Type Department Care Team ([facility] st Contact Info) Description 11/26/2023 Telephone [facility] MEDICINE [address] [place] [address] Jameson Tang MD [address] [place] [address] Lab Orders Social History Tobacco Use Types [...] results: Lab Date when done: 11/09 Facility: [facility] documented in this encounter Plan of Treatment Not on file documented as of this encounter Visit Diagnoses Not on filedocumented in this encounter Additional Health Concerns Assessment Noted Time PHQ-9 Depression Total Score: 7 11/10/19 10:56 AM EDT documented as of this encounter Care Teams Sap Manager Relationship Specialty Start Date End Date Jameson Tang MD [address] [place] [address] PCP - General Internal Medicine 11/10/23 documented as of this encounter
--- OUTSIDE RECORDS SUMMARY | 2025-03-18 14:00 | XMS_ITS | Encounter Summary ---
Author Organization [employer] Address [address] [facility] 7 [place] [address] Care Team Providers Care Operations Coordinator Name Role Phone Jameson Tang MD Primary Care Provider [phone] Reason for Visit * Reason Onset Date Comments Created in error 11/17/2023 Encounter Details Date Type Department Care Team ([facility] st Contact Info) Description 11/17/2023 Telephone [facility] MEDICINE [address] [place] [address] Jameson Tang MD [address] [place] [address] Created in error Social History Tobacco Use [...] documented as of this encounter Care Teams Operations Coordinator Relationship Specialty Start Date End Date Jameson Tang MD [address] [place] [address] PCP - General Internal Medicine 11/10/23 documented as of this encounter
--- OUTSIDE RECORDS SUMMARY | 2025-03-18 14:00 | XMS_ITS | Clinical Summary ---
Author Organization [employer] Address [address] [facility] [address] [place] [address] Care Team Providers Care Land Agent Name Role Phone Jameson Tang MD Primary Care Provider [phone] Allergies No known active allergies Medications * [...] not crush or chew. 30 capsule 11 3:26 PM EST 01/25/20 25 026 Active Minoxidil (Minoxidil for [...] organization. Date Type Department Care Team Description 03/15/2025 Telephone [facility] [address] [place] [address] Jameson Tang MD Prior Authorization 03/13/2025 Orders Only [facility] External Provider, [facility] 01/24/2025 10:45 AM EDT Office Visit [facility] [address] [place] [address] Jameson Tang MD Obesity (BMI 30-39.9) (Primary Dx); Annual physical exam; SERENA (generalized anxiety disorder); Moderate major depression (CMS/HCC) (HCC); Other depression; Hair loss 01/24/2025 Travel 01/23/2025 Telephone [facility] [address] [place] [address] Jameson Tang MD Chart Prep 01/17/2025 Patient Outreach [address] [address] Jameson Tang MD Pre-visit Planning ([facility] screening completed on 09/11/24) 12/26/2024 Results Follow-Up [facility] [address] [place] [address] Elva Allen RN Urinalysis with Reflex to Microscopic, Comprehensive Metabolic Panel, Fasting, Chlamydia/Trichomonas /Neisseria gonorrhoeae, PCR, Urine 12/25/2024 Results Follow-Up [facility] [address] [place] [phone] Jameson Tang MD HIV-1/2 Antigen and Antibodies, Fourth Generation, with Reflexes, Hepatitis C Antibody with Reflex to HCV, RNA, Quantitative, Real-Time PCR, RPR (Monitor) with Reflex to Titer, Additional followed-up results: 5 12/22/2024 Orders Only [facility] [address] [place] [address] Jameson Tang MD 12/22/2024 Patient Outreach [address] [address] Jameson Tang MD Care Coordination (W outreach [facility] employment/jobs referral completed) 12/21/2024 2:00 PM EDT Office Visit [facility] [address] [place] [address] Jameson Tang MD Monilial intertrigo (Primary Dx); Other depression; Screen for STD (sexually transmitted disease); Obesity (BMI 30-39.9) 12/21/2024 Travel 12/20/2024 Travel 12/20/2024 Telephone [facility] [address] [place] [address] Jameson Tang MD Chart Prep from Last 3 Months Immunizations Immunization Administration [...] Screening 2018 HPV/Cotest 2018 COVID-19 Vaccine ( season) 2024 Influenza Vaccine (#1) 2024 , [...] Name Priority Date/Time Associated Diagnosis Comments XR CHEST 1 VIEW Routine 03/13/2025 6:30 PM EST CBC WITH AUTO DIFFERENTIAL Routine 03/13/2025 6:14 PM EST HCG, TOTAL, QN Routine 03/13/2025 6:14 PM EST MAGNESIUM Routine 03/13/2025 6:14 PM EST COMPREHENSIVE METABOLIC PANEL Routine 03/13/2025 6:14 PM EST SARS COV2/INFLUENZA A/B AND RSV RNA QL NAAT Routine 03/13/2025 6:14 PM EST STREP A NUCLEIC ACID Routine 03/13/2025 6:14 PM EST CHLAMYDIA/TRICHOMONAS/ NEISSERIA GONORRHOEAE, PCR, URINE Routine 12/22/2024 [...] disease) from Last 3 Months Results * XR Chest 1 View (03/13/2025 6:30 PM EST) Anatomical Region Laterality Modality Chest Radiographic Marimar ging 03/13/2025 6:30 PM EST Narrative 03/13/2025 6:31 PM EST [address] [address] XRay Report Signed Patient: Jackie Grande MR#: [id number] : 1990 Acct:[id number] Age/Sex: 34 / F ADM Date: 03/13/25 Loc: HO.ED Attending Dr: Ordering Physician: Long Mcneill Date of Service: 03/13/25 Procedure(s): XR chest 1V Accession Number(s): [id number] cc: Long Mcneill; Jameson Tang MD Reason for Exam: coughing. pneumonia CLINICAL HISTORY: coughing. pneumonia 1 view chest x-ray Comparison: None provided Findings: Bronchial wall thickening. No consolidation. No pleural effusion or pneumothorax. Normal size heart. No acute fracture. Probable postsurgical changes in the bilateral breasts. Impression: 1. Mild central bronchial wall thickening, which can be seen with asthma, reactive airways process or viral illness. 2. No superimposed infiltrate or consolidation. This document has been electronically signed by: Shira Esparza DO on 03/13/2025 18:30:04 Dictated By: Shira Esparza MD Signed By: <Electronically signed by Shira Esparza MD in OV> 03/13/251830 DD/ 29 TD/TT: 03/13/251829 Sheet Metal Supervisor: Procedure Note Donotuseinterpreter, Image - 03/14/2025 [place] [address] XRay Report Signed Patient: Jackie Grande#: [id number] : 1990Acct:[id number] Age/Sex: 34 / FADM Date: 03/13/25 Loc: .ED Attending Dr: Ordering Physician: Long Mcneill Date of Service: 03/13/25 Procedure(s): XR chest 1V Accession Number(s): [id number] cc: Long Mcneill; Jameson Tang MD Reason for Exam: coughing. pneumonia CLINICAL HISTORY: coughing. pneumonia 1 view chest x-ray Comparison: None provided Findings: Bronchial wall thickening. No consolidation. No pleural effusion or pneumothorax. Normal size heart. No acute fracture. Probable postsurgical changes in the bilateral breasts. Impression: 1. Mild central bronchial wall thickening, which can be seen with asthma, reactive airways process or viral illness. 2. No superimposed infiltrate or consolidation. This document has been electronically signed by: Shira Esparza DO on 03/13/2025 18:30:04 Dictated By: Shira Esparza MD Signed By: <Electronically signed by Shira Esparza MD in OV> 03/13/251830 DD/ 29 TD/TT: 03/13/251829 Sheet Metal Supervisor: [facility] External Provider IMG XR PROCEDURES Edited Result - Final * Strep A Nucleic Acid (03/13/2025 6:14 PM EST) IDNOW SERIAL# [id number] [facility] Strep A Nucleic Acid Negative Negative [facility] Comment:All test results mus t be correlated with clinical findings.This test has not been evaluated for monitoring treatment ofinfection.Additional follow-up testing using the culture method isrequired if the result is negative and clinical symptomspersist, or in the event of an acute rheumatic feveroutbreak. 03/13/2025 6:14 PM EST 03/13/2025 6:21 PM EST Generic External Data Provider LAB MICROBIOLOGY - GENERAL ORDERABLES Final Result [facility] [address] [place] [phone] * (ABNORMAL) SARS-CoV-2 RNA, Influenza A/B, and RSV RNA, Ql NAAT (03/13/2025 6:14 PM EST) Influenza A PCR POSITIVE(A) Negative [facility] Influenza B PCR NEGATIVE Negative [facility] Resp Syncy Virus RNA Qual PCR NEGATIVE Negative [facility] SARS COV2 PCR NEGATIVE Negative [facility] Comment:All test results mus t be correlated with clinical findings.Negative results do not preclude SARS-CoV2, influenza Avirus, influenza B virus and/or RSV infectionand should not be used as the sole basis for treatment orother patient management decisions. Negative results must becombined with clinical observations, patient history, andepidemiological information.This test has not been evaluated for monitoring treatment ofinfection.This test has been authorized by the FDA under an EmergencyUse Authorization (EUA) for use by authorized laboratories.Testing performed on the [employer] Gene[employer]pert utilizingreal-time RT-PCR.All SARS CoV2 and positive influenza A/B results arereported to [facility]. 03/13/2025 6:14 PM EST 03/13/2025 6:21 PM EST us Generic External Data Provider LAB MICROBIOLOGY - GENERAL ORDERABLES Final Result [facility] [address] [place] [address] [phone] * CBC auto differential (03/13/2025 6:14 PM EST) Only the most recent of2 resultswithin the time period is included. White Blood Count 6.9 4.8 - 10.8 X10*3/uL [facility] Red Blood Count 5.02 4.20 - 5.50 X10*6/uL [facility] Hemoglobin 15.2 12.0 - 16.0 g/dl [facility] Hematocrit 44.1 37.0 - 47.0 % [facility] Mean Corpuscular Volume 87.8 80.0 - 98.0 fL [facility] Mean Corpuscular Hemoglobin 30.3 27.0 - 33.0 pg [facility] Mean Corpuscular HGB Conc 34.5 31.0 - 35.0 g/dl [facility] Red Cell Distribution Width 12.5 11.0 - 16.0 % [facility] Platelet Count 173 160 - 400 X10*3/uL [facility] Mean Platelet Volume 12.0 9.4 - 12.3 fL [facility] Neutrophils Percent Auto 67.7 45 - 73 % [facility] Imm Gran Pct Auto 0.3 0.0 - 0.4 % [facility] Lymphocytes Percent Auto 22.0 20 - 40 % [facility] Monocytes Percent Auto 9.8 2 - 11 % [facility] Eosinophils Percent Auto 0.1 0 - 4 % [facility] Basophils Percent Auto 0.1 0 - 2 % [facility] NRBC Pct Auto 0.0 0.0 - 0.2 /100WBC [facility] Neutrophils Absolute Auto 4.7 2.0 - 8.3 x10*3/uL [facility] Imm Gran Abs Auto 0.02 0.00 - 0.03 X10*3/uL [facility] Lymphocytes Absolute Auto 1.5 1.2 - 4.9 X10*3/uL [facility] Monocytes Absolute Auto 0.7 0.1 - 1.2 X10*3/uL [facility] Eosinophils Absolute Auto 0.0 0.0 - 0.4 X10*3/uL [facility] Basophils Absolute Auto 0.0 0.0 - 0.2 X10*3/uL [facility] NRBC Abs Auto 0.000 0.0 - 0.012 X10*3/uL [facility] 03/13/2025 6:14 PM EST 03/13/2025 6:21 PM EST us Generic External Data Provider LAB BLOOD ORDERAB LES Final Result [facility] [address] [place] [phone] * hCG, Total, Quantitative (03/13/2025 6:14 PM EST) HCG Quantitative <2 mIU/mL [facility] Comment:Weeks post LMP Appro ximate hCG(Last Menstrual Period) Range (mIU/ml)3 - 4 weeks 9 - 1304 - 5 weeks 75 - 2,6005 - 6 weeks 850 - 20,8006 - 7 weeks 4000 - 100,2007 - 12 weeks 11,500 - 289,24438 - 16 weeks 18,300 - 137,98580 - 29 weeks (2nd trimester) 1,400 - 53,34845 - 41 weeks (3rd trimester) 940 - 60,000The [place] B- hCG assay is used for the early detection ofpregnancy; it cannot be used to diagnose any conditionunrelated to . If a B-hCG level is not supportedby the clinical evidence, results should be confirmed by analternative method (qualitative urine hCG, for example). 03/13/2025 6:14 PM EST 03/13/2025 6:21 PM EST Generic External Data Provider LAB BLOOD ORDERAB LES Final Result Performing Organization Address [facility] Co de Phone Number [facility] [address] [place] [phone] * Magnesium (03/13/2025 6:14 PM EST) Only the most recent of2 resultswithin the time period is included. Magnesium 1.8 1.6 - 2.6 mg/dL [facility] 03/13/2025 6:14 PM EST 03/13/2025 6:21 PM EST Generic External Data Provider LAB BLOOD ORDERAB LES Final Result Performing Organization Address [facility] de Phone Number [facility] [address] [place] [phone] * (ABNORMAL) Comprehensive Metabolic Panel (03/13/2025 6:14 PM EST) Sodium 138 135 - 145 mmol/L [facility] Potassium 2.8(LL) 3.3 - 5.1 mmol/L [facility] Comment:Critical value for t est(s): K Results called to and readback by: TORIN Person calling: FLEMINC Date: 03/13/25Time: 1851 Chloride 106 96 - 108 mmol/L [facility] Carbon Dioxide 22 22 - 29 mmol/L [facility] Anion Gap 13 12 - 20 [facility] Urea Nitrogen (BUN) 10 9 - 16 mg/dL [facility] Creatinine, Serum 0.89 0.5 - 1.4 mg/dL [facility] Creatinine Clr Calc Pharmacy 77.1 [facility] Comment:Provided height and weight: 154.94 cm,68.039 kg.eGFR (calculated from the MDRD study equation) and eCrCl(calculated from the Cockcroft-Gault equation) are based ondifferent parameters and may not yield comparable results.If eCrCl result is absurd, please check patient'sheight/weight. Estimated Glomerular Filt Rate >60 [facility] Comment:Chronic Kidney Disea se: Estimated GFR < 60 mL/min/1.57u5Wtgeup Kidney Disease: Estimated GFR < 15 mL/min/1.73m2 Glucose 114 60 - 115 mg/dL [facility] Calcium 8.8 8.4 - 10.2 mg/dL [facility] Bilirubin, Total 0.4 0.0 - 1.0 mg/dL [facility] Aspartate Amino Transferase 28 5 - 31 U/L [facility] Alanine Aminotransferase 16 0 - 31 U/L [facility] Total Protein 7.2 6.5 - 8.0 g/dL [facility] Albumin Level 4.5 3.5 - 5.0 g/dL [facility] Alkaline Phosphatase 64 39 - 117 U/L [facility] 03/13/2025 6:14 PM EST 03/13/2025 6:21 PM EST us Generic External Data Provider LAB BLOOD ORDERAB LES Final Result [facility] [address] [place] [phone] * Chlamydia/Trichomonas/Neisseria gonorrhoeae, PCR, Urine (12/22/2024 10:46 AM EDT) CT PCR, Urine NOT DETECTED Not Detect. [facility] Comment:A not detected test result does [...] NG PCR, Urine NOT DETECTED Not Detect. [facility] Comment:A not detected test result does [...] Tang MD LAB URINE ORDERABLES Final Result [facility] [address] [place] [phone] * Urinalysis with Reflex to Microscopic (12/22/2024 10:46 AM EDT) Color Urine Yellow [facility] Appearance Urine Clear [facility] PH 7.0 5.0 - 9.0 [facility] Glucose Urine UA Negative Negative mg/dL [facility] Urine Blood Negative Negative [facility] Specific [place] - Urine 1.025 1.005 - 1.025 [facility] Urine Protein Negative Neg-Trace mg/dL [facility] Urine Ketones Negative Negative mg/dL [facility] Nitrite Urine Negative Negative [facility] Leukocyte Esterase Urine Negative Negative [facility] 12/22/2024 10:4 6 AM EDT 12/22/2024 2:21 PM EDT us Jameson Tang MD LAB URINE ORDERABLES Final Result [facility] [address] [place] [phone] * (ABNORMAL) Comprehensive Metabolic Panel, Fasting (12/22/2024 10:35 AM EDT) Sodium 142 135 - 145 mmol/L [facility] Potassium 3.7 3.3 - 5.1 mmol/L [facility] Chloride 109(H) 96 - 108 mmol/L [facility] Carbon Dioxide 28 22 - 29 mmol/L [facility] Anion Gap 9(L) 12 - 20 [facility] Urea Nitrogen (BUN) 14 9 - 16 mg/dL [facility] Creatinine, Serum 0.73 0.5 - 1.4 mg/dL [facility] Estimated Glomerular Filt Rate >60 [facility] Comment:Chronic Kidney Disea se: Estimated GFR < 60 mL/min/1.35c8Sdmziq Kidney Disease: Estimated GFR < 15 mL/min/1.73m2 Glucose Fasting 89 60 - 99 mg/dL [facility] Calcium 8.8 8.4 - 10.2 mg/dL [facility] Bilirubin, Total 0.6 0.0 - 1.0 mg/dL [facility] Aspartate Amino Transferase 24 5 - 31 U/L [facility] Alanine Aminotransferase 14 0 - 31 U/L [facility] Total Protein 6.2(L) 6.5 - 8.0 g/dL [facility] Albumin Level 3.9 3.5 - 5.0 g/dL [facility] Alkaline Phosphatase 70 39 - 117 U/L [facility] 12/22/2024 10:3 5 AM EDT 12/22/2024 2:24 PM EDT us Jameson Tang MD LAB BLOOD ORDERABLES Final Result Performing Organization Address [facility]/ZIP Co de Phone Number [facility] [address] [place] [phone] * Vitamin B12/Folate, Serum Panel (12/22/2024 10:35 AM EDT) Vitamin B12 380 200 - 900 pg/mL [facility] Comment:NORMAL 200-900 PG/ML INDETERMINATE 160-199 PG/ML DEFICIENT < 160 PG/ML Folate 10.2 > or = 4.0 ng/mL [facility] Comment:Reference Values:> o r = 4.0 [...] BLOOD ORDERABLES Final Result Performing Organization Address [facility] Co de Phone Number [facility] [address] [place] [phone] * TSH with Reflex to Free T4 (12/22/2024 10:35 AM EDT) TSH reflex Free T4 0.68 0.32 - 4.0 uIU/mL [facility] Blood Venous blood specimen / Unknown 12/22/2024 10:35 AM EDT 12/22/2024 2:24 PM EDT us Jameson Tang MD LAB BLOOD ORDERABLES Final Result Performing Organization Address [facility] Co de Phone Number [facility] [address] [place] [phone] * Hepatitis C Antibody with Reflex to HCV, RNA, Quantitative, Real-Time PCR (12/22/2024 10:35 AM EDT) Pathologist [facility] Hepatitis C Antibody Nonreactive Nonreactive [facility] Comment:Antibodies to HCV no t detected; does not exclude early acuteHCV infection. Blood Venous blood specimen / Unknown 12/22/2024 10:35 AM EDT 12/22/2024 2:24 PM EDT Jameson Tang MD LAB BLOOD ORDERABLES Final Result Performing Organization Address [facility] Co de Phone Number [facility] [address] [place] [phone] * RPR (Monitor) with Reflex to??Titer (12/22/2024 10:35 AM EDT) Pathologist [facility] RPR (Monitor) w/Refl Titer NON-REACTI VE NON-REACT LIAN [facility] Comment:THIS TEST WAS PERFOR MED AT:[employer] [place] [phone] HUNT MD Rapid Plasma Reagin Ab Titer TNP [facility] Blood Venous blood specimen / Unknown 12/22/2024 10:35 AM EDT 12/22/2024 2:24 PM EDT Jameson Tang MD LAB BLOOD ORDERABLES Final Result Performing Organization Address [facility] de Phone Number [facility] [address] [place] [phone] * HIV-1/2 Antigen and Antibodies, Fourth Generation, with Reflexes (12/22/2024 10:35 AM EDT) Pathologist [facility] HIV AB/AG Nonreactive Nonreactive [facility] Comment:HIV-1 p24 Ag and/or HIV-1/HIV-2 Ab not detected.A test result that is nonreactive does not exclude thepossibility of exposure to or infection with HIV-1 and/orHIV-2. Nonreactive results in this assay for individualswith prior exposure to HIV-1 and/or HIV-2 may be due toantigen and antibody levels that are below the limit ofdetection of this assay.The [employer] HIV Ag/Ab Combo assay result andsupplemental assay results should be interpreted inconjunction with the patient's clinical presentation,history and other laboratory results. If the results areinconsistent with clinical evidence, additional testing issuggested to confirm the result. Blood Venous blood specimen / Unknown 12/22/2024 10:35 AM EDT 12/22/2024 2:24 PM EDT us Jameson Tang MD LAB BLOOD ORDERABLES Final Result [facility] [address] [place] [phone] * Lipid Panel, Standard (12/22/2024 10:35 AM EDT) Triglycerides 57 <150 mg/dL [facility] Comment:Desirable Triglyceri de: less than 150 mg/dLBorderline High Triglyceride 150-199 mg/dLHigh Triglyceride: 200-499 mg/dLVery High Triglyceride: greater than or equal to 5OO mg/dL Cholesterol 127 <200 mg/dL [facility] Comment:Desirable Cholestero l: less than 200 mg/dLBorderline High Cholesterol: 200-239 mg/dLHigh Cholesterol: greater than 239 mg/dL LDL Cholesterol Calculated 73 <100 mg/dL [facility] Comment:Desirable LDL: less than 100 mg/dLNear Optimal/Above Optimal LDL: 110- 129 mg/dLBorderline High LDL: 130-159 mg/dLHigh LDL: 160-189 mg/dLVery High LDL: greater than or equal to 190 mg/dL HDL Cholesterol 43 >40 mg/dL [facility] Comment:Desirable HDL: great er than 40 mg/dL Note: This HDL assay may give artificially low results in patients with liver disease. Blood Venous blood specimen / Unknown 12/22/2024 10:35 AM EDT 12/22/2024 2:24 PM EDT Jameson Tang MD LAB BLOOD ORDERABLES Final Result [facility] [address] [place] [phone] from Last 3 Months [facility] [employer] Care Teams Land Agent Relationship Specialty Start Date End Date Jameson Tang MD [address] [place] [phone] PCP - General Internal Medicine 11/10/23
--- OUTSIDE RECORDS SUMMARY | 2025-03-18 14:00 | XMS_ITS | Encounter Summary ---
Author Organization [employer] Address [address] [facility] 7 [place] [address] Care Team Providers Care Pediatric Nurse Practitioner Name Role Phone Jameson Tang MD Primary Care Provider [phone] Reason for Visit * Reason Onset Date Comments Medication Question 03/08/2024 Med Refill 03/08/2024 Encounter Details Date Type Department Care Team ([facility] st Contact Info) Description 03/08/2024 Telephone [facility] [address] [place] [address] Jameson Tang MD [address] [place] [address] Medication Question; Med Refill Social History Tobacco [...] like the new prescription sent to the [facility] pharmacy . Will route this message to the PCP for review. TY. * Telephone Encounter - Xavier Ruiz - 03/08/2024 8:42 AM EST Tc from pt stating that PCP told her to call to let him now for the switch from [employer] to [employer]. If any question contact pt at [phone] documented in this encounter Plan of Treatment Not on file documented as of this encounter Visit Diagnoses Not on filedocumented in this encounter Additional Health Concerns Assessment Noted Time PHQ-9 Depression Total Score: 7 11/10/19 24 10:56 AM EDT documented as of this encounter Care Teams Pediatric Nurse Practitioner Relationship Specialty Start Date End Date Jameson Tang MD [address] [place] [phone] PCP - General Internal Medicine 11/10/23 documented as of this encounter
--- OUTSIDE RECORDS SUMMARY | 2025-03-18 14:00 | XMS_ITS | Encounter Summary ---
Author Organization [employer] Address [address] [place] [address] 7 [place] [address] Care Team Providers Care Paper Control Clerk Name Role Phone Jameson Tang MD Primary Care Provider [phone] Reason for Visit * Reason Comments Med Refill Encounter Details Date Type Department Care Team ([facility] st Contact Info) Description 02/17/2024 Refill [facility] [address] [place] [address] Jameson Tang MD [address] [place] [address] Social History Tobacco Use Types Packs/Day Years [...] documented as of this encounter Care Teams Paper Control Clerk Relationship Specialty Start Date End Date Jameson Tang MD [address] [place] [phone] PCP - General Internal Medicine 11/10/23 documented as of this encounter
--- OUTSIDE RECORDS SUMMARY | 2025-03-18 14:00 | XMS_ITS | Encounter Summary ---
Author Organization [employer] Address [address] [facility] 7 [place] [address] Care Team Providers Care Buying Intern Name Role Phone Jameson Tang MD Primary Care Provider [phone] Reason for Visit * Reason Onset Date Comments Med Refill 08/28/2024 Encounter Details Date Type Department Care Team (Late st Contact Info) Description 08/28/2024 Telephone [facility] MEDICINE [address] [place] [address] Jameson Tang MD [address] [place] [address] Med Refill Social History Tobacco Use Types [...] MG/0.5ML solution auto-injector To be sent to: [facility] documented in this encounter Plan of Treatment Not on file documented as of this encounter Visit Diagnoses Not on filedocumented in this encounter Additional Health Concerns Assessment Noted Time PHQ-9 Depression Total Score: 7 11/10/19 24 10:56 AM EDT documented as of this encounter Care Teams Buying Intern Relationship Specialty Start Date End Date Jameson Tang MD [address] [place] [phone] PCP - General Internal Medicine 11/10/23 documented as of this encounter
--- OUTSIDE RECORDS SUMMARY | 2025-03-18 14:00 | XMS_ITS | Encounter Summary ---
Author Organization [employer] Address 75 [facility] 7t [place] [address] Care Team Providers Care Quality Assurance Advisor Name Role Phone Jameson Tang MD Primary Care Provider [phone] Encounter Details Date Type Department Care Team ([facility] st Contact Info) Description 03/10/2024 Orders Only [facility] CHC MED & PEDS [address] [place] [address] Jameson Tang MD [address] [place] [address] Obesity (BMI 30-39.9) (Primary Dx) Social History [...] documented as of this encounter Care Teams Quality Assurance Advisor Relationship Specialty Start Date End Date Jameson Tang MD [address] [place] [phone] PCP - General Internal Medicine 11/10/23 documented as of this encounter
--- OUTSIDE RECORDS SUMMARY | 2025-03-18 14:00 | XMS_ITS | Encounter Summary ---
Author Organization [employer] Address [address] [place] [address] 7 [place] [address] Care Team Providers Care Roller Die Cutting Machine Operator Name Role Phone Jameson Tang MD Primary Care Provider [phone] Reason for Visit * Reason Onset Date Comments Prior Authorization 03/15/2025 Encounter Details Date Type Department Care Team ([facility] [address] Contact Info) Description 03/15/2025 Telephone [facility] CHC MED & PEDS [address] [place] [address] Jameson Tang MD [address] [place] [address] Prior Authorization Social History Tobacco Use Types Packs/Day Years [...] encounter Miscellaneous Notes * Telephone Encounter - Moira Johnson LPN - 03/15/2025 4:31 PM EST PA generated and faxed MH Pending decision from insurance documented in this encounter Plan of Treatment Not on file documented as of this encounter Visit Diagnoses Not on filedocumented in this encounter Additional Health Concerns Assessment Noted Time PHQ-9 Depression Total Score: 15 025 2:14 PM EDT documented as of this encounter Care Teams Roller Die Cutting Machine Operator Relationship Specialty Start Date End Date Jameson Tang MD [address] [place] [phone] PCP - General Internal Medicine 11/10/23 documented as of this encounter
--- OUTSIDE RECORDS SUMMARY | 2025-03-18 14:00 | XMS_ITS | Encounter Summary ---
Author Organization [employer] Address [address] [facility] 7t [place] [address] Care Team Providers Care Sand Screener Operator Name Role Phone Jameson Tang MD Primary Care Provider [phone] Encounter Details Date Type Department Care Team ([facility] Contact Info) Description 03/13/2025 Orders Only [facility] External Provider, [facility] Social History Tobacco Use Types Packs/Day Years [...] 1 VIEW Routine 03/13/2025 6:30 PM EST STREP A NUCLEIC ACID Routine 03/13/2025 6:14 PM EST SARS COV2/INFLUENZA A/B AND RSV RNA QL NAAT Routine 03/13/2025 6:14 PM EST CBC WITH AUTO DIFFERENTIAL Routine 03/13/2025 6:14 PM EST HCG, TOTAL, QN Routine 03/13/2025 6:14 PM EST MAGNESIUM Routine 03/13/2025 6:14 PM EST COMPREHENSIVE METABOLIC PANEL Routine 03/13/2025 6:14 PM EST documented in this encounter Results * XR Chest 1 View (03/13/2025 6:30 PM EST) Anatomical Region Laterality Modality Chest Radiographic Marimar ging 03/13/2025 6:30 PM EST Narrative 03/13/2025 6:31 PM EST [address] [address] XRay Report Signed Patient: Jackie Grande MR#: [id number] : 1990 Acct:[id number] Age/Sex: 34 / F ADM Date: 03/13/25 Loc: .ED Attending Dr: Ordering Physician: Long Mcneill Date of Service: 03/13/25 Procedure(s): XR chest 1V Accession Number(s): [id number] cc: Long Mcneill; Jameson Tang MD Reason [...] in OV> 03/13/251830 DD/ 29 TD/TT: 03/13/251829 Senior Ux Developer: Procedure Note Donotuseinterpreter, Image - 03/14/2025 [place] [address] XRay Report Signed Patient: Jackie GrandeMR#: [id number] : 1990Acct:[id number] Age/Sex: 34 / FADM Date: 03/13/25 Loc: .ED Attending Dr: Ordering Physician: Long Mcneill Date of Service: 03/13/25 Procedure(s): XR chest 1V Accession Number(s): [id number] cc: Long Mcneill; Jameson Tang MD Reason [...] in OV> 03/13/251830 DD/ 29 TD/TT: 03/13/251829 Senior Ux Developer: [facility] External Provider IMG XR PROCEDURES Edited Result - Final * (ABNORMAL) SARS-CoV-2 RNA, Influenza A/B, and RSV RNA, Ql NAAT (03/13/2025 6:14 PM EST) Pathologist [facility] Influenza A PCR POSITIVE(A) Negative [facility] Influenza B PCR NEGATIVE Negative [facility] Resp Syncy Virus RNA Qual PCR NEGATIVE Negative [facility] SARS COV2 PCR NEGATIVE Negative [facility] Comment:All test results mus [...] use by authorized laboratories.Testing performed on the [employer]ix GeneXpert utilizingreal-time RT-PCR.All SARS CoV2 and positive influenza A/B results arereported to [facility]. 03/13/2025 6:14 PM EST 03/13/2025 6:21 PM EST Generic External Data Provider LAB MICROBIOLOGY - GENERAL ORDERABLES Final Result [facility] [address] [place], [place] [phone] * CBC auto differential (03/13/2025 6:14 PM EST) White Blood Count 6.9 4.8 - 10.8 X10*3/uL [facility] Red Blood Count 5.02 4.20 - 5.50 X10*6/uL [facility] Hemoglobin 15.2 12.0 - 16.0 g/dl [facility] Hematocrit 44.1 37.0 - 47.0 % [facility] Mean Corpuscular Volume 87.8 80.0 - 98.0 fL [facility] Mean Corpuscular Hemoglobin 30.3 27.0 - 33.0 pg [facility] Mean Corpuscular HGB Conc 34.5 31.0 - 35.0 g/dl [facility] Red Cell Distribution Width 12.5 11.0 - 16.0 % [facility] Platelet Count 173 160 - 400 X10*3/uL [facility] Mean Platelet Volume 12.0 9.4 - 12.3 fL [facility] Neutrophils Percent Auto 67.7 45 - 73 % [facility] Imm Gran Pct Auto 0.3 0.0 - 0.4 % [facility] Lymphocytes Percent Auto 22.0 20 - 40 % [facility] Monocytes Percent Auto 9.8 2 - 11 % [facility] Eosinophils Percent Auto 0.1 0 - 4 % [facility] Basophils Percent Auto 0.1 0 - 2 % [facility] NRBC Pct Auto 0.0 0.0 - 0.2 /100WBC [facility] Neutrophils Absolute Auto 4.7 2.0 - 8.3 x10*3/uL [facility] Imm Gran Abs Auto 0.02 0.00 - 0.03 X10*3/uL [facility] Lymphocytes Absolute Auto 1.5 1.2 - 4.9 X10*3/uL [facility] Monocytes Absolute Auto 0.7 0.1 - 1.2 X10*3/uL [facility] Eosinophils Absolute Auto 0.0 0.0 - 0.4 X10*3/uL [facility] Basophils Absolute Auto 0.0 0.0 - 0.2 X10*3/uL [facility] NRBC Abs Auto 0.000 0.0 - 0.012 X10*3/uL [facility] 03/13/2025 6:14 PM EST 03/13/2025 6:21 PM EST us Generic External Data Provider LAB BLOOD ORDERAB LES Final Result Performing Organization Address [facility] Co de Phone Number [facility] [address] [place] [phone] * hCG, Total, Quantitative (03/13/2025 6:14 PM EST) HCG Quantitative <2 mIU/mL [facility] Comment:Weeks post LMP Appro ximate hCG(Last Menstrual Period) Range (mIU/ml)3 - 4 weeks 9 - 1304 - 5 weeks 75 - 2,6005 - 6 weeks 850 - 20,8006 - 7 weeks 4000 - 100,2007 - 12 weeks 11,500 - 289,80983 - 16 weeks 18,300 - 137,03286 - 29 weeks (2nd trimester) 1,400 - 53,15074 - 41 weeks (3rd trimester) 940 - [...] ORDERAB LES Final Result Performing Organization Address [facility] Co de Phone Number [facility] [address] [place] [phone] * Magnesium (03/13/2025 6:14 PM EST) Magnesium 1.8 1.6 - 2.6 mg/dL [facility] 03/13/2025 6:14 PM EST 03/13/2025 6:21 PM EST us Generic External Data Provider LAB BLOOD ORDERAB LES Final Result Performing Organization Address [facility] Co de Phone Number [facility] [address] [place] [address] [phone] * (ABNORMAL) Comprehensive Metabolic Panel (03/13/2025 6:14 PM EST) Sodium 138 135 - 145 mmol/L [facility] Potassium 2.8(LL) 3.3 - 5.1 mmol/L [facility] Comment:Critical value for t est(s): K Results called to and readback by: TORIN Person calling: [employer] Date: 03/13/25Time: 1851 Chloride 106 96 - 108 mmol/L [facility] Carbon Dioxide 22 22 - 29 mmol/L [facility] Anion Gap 13 12 - 20 [facility] Urea Nitrogen (BUN) 10 9 - 16 mg/dL [facility] Creatinine, Serum 0.89 0.5 - 1.4 mg/dL [facility] Creatinine Clr Calc Pharmacy 77.1 [facility] Comment:Provided height and weight: 154.94 cm,68.039 kg.eGFR (calculated from the MDRD study equation) and eCrCl(calculated from the Cockcroft-Gault equation) are based ondifferent parameters and may not yield comparable results.If eCrCl result is absurd, please check patient'sheight/weight. Estimated Glomerular Filt Rate >60 [facility] Comment:Chronic Kidney Disea se: Estimated GFR < 60 mL/min/1.18b1Izjqen Kidney Disease: Estimated GFR < 15 mL/min/1.73m2 Glucose 114 60 - 115 mg/dL [facility] Calcium 8.8 8.4 - 10.2 mg/dL [facility] Bilirubin, Total 0.4 0.0 - 1.0 mg/dL [facility] Aspartate Amino Transferase 28 5 - 31 U/L [facility] Alanine Aminotransferase 16 0 - 31 U/L [facility] Total Protein 7.2 6.5 - 8.0 g/dL [facility] Albumin Level 4.5 3.5 - 5.0 g/dL [facility] Alkaline Phosphatase 64 39 - 117 U/L [facility] 03/13/2025 6:14 PM EST 03/13/2025 6:21 PM EST us Generic External Data Provider LAB BLOOD ORDERAB LES Final Result Performing Organization Address [facility] Co de Phone Number [facility] [address] [place] [address] [phone] * Strep A Nucleic Acid (03/13/2025 6:14 PM EST) [employer]NOW SERIAL# [id number] [facility] Strep A Nucleic Acid Negative Negative [facility] Comment:All test results mus t be correlated with clinical findings.This test has not been evaluated for monitoring treatment ofinfection.Additional follow-up testing using the culture method isrequired if the result is negative and clinical symptomspersist, or in the event of an acute rheumatic feveroutbreak. 03/13/2025 6:14 PM EST 03/13/2025 6:21 PM EST Generic External Data Provider LAB MICROBIOLOGY - GENERAL ORDERABLES Final Result Performing Organization Address [facility] de Phone Number [facility] [address] [place] [phone] documented in this encounter Visit Diagnoses Not on filedocumented in this encounter Additional Health Concerns Assessment Noted Time PHQ-9 Depression Total Score: 15 12/21/ 025 2:14 PM EDT documented as of this encounter Care Teams Sand Screener Operator Relationship Specialty Start Date End Date Jameson Tang MD [address] [place] [phone] PCP - General Internal Medicine 11/10/23 documented as of this encounter
--- OUTSIDE RECORDS SUMMARY | 2025-03-18 14:00 | XMS_ITS | Encounter Summary ---
Author Organization [employer] Address [address] [place] [address] 7 [place] [address] Care Team Providers Care Mounting Inspector Name Role Phone Jameson Tang MD Primary Care Provider [phone] Encounter Details Date Type Department Care Team (Late st Contact Info) Description 12/15/2023 Orders Only [facility] CHC MED & PEDS [address] [place] [address] Jameson Tang MD [address] [place] [address] Social History Tobacco Use Types Packs/Day Years [...] documented as of this encounter Care Teams Mounting Inspector Relationship Specialty Start Date End Date Jameson Tang MD [address] [place] [address] PCP - General Internal Medicine 11/10/23 documented as of this encounter
--- OUTSIDE RECORDS SUMMARY | 2025-03-18 14:00 | XMS_ITS | Encounter Summary ---
Author Organization [employer] Address [address] [facility] 7 [place] [address] Care Team Providers Care Retail Pharmacy Merchandiser Name Role Phone Jameson Tang MD Primary Care Provider [phone]- [phone] Reason for Visit * Reason Onset Date Comments Medication Question 02/14/2024 Encounter Details Date Type Department Care Team ([facility] st Contact Info) Description 02/14/2024 Telephone [facility] MEDICINE [address] [place] [address] Jameson Tang MD [address] [place] [address] Medication Question Social History Tobacco Use Types [...] same dose for 2 months . Callback [phone] Pt will like PCP or [place] before 1pm documented in this encounter Plan of Treatment Not on file documented as of this encounter Visit Diagnoses Not on filedocumented in this encounter Additional Health Concerns Assessment Noted Time PHQ-9 Depression Total Score: 7 11/10/19 24 10:56 AM EDT documented as of this encounter Care Teams Retail Pharmacy Merchandiser Relationship Specialty Start Date End Date Jameson Tang MD [address] [place] [address] [place] [address] PCP - General Internal Medicine 11/10/23 documented as of this encounter
--- OUTSIDE RECORDS SUMMARY | 2025-03-18 14:01 | XMS_ITS | Encounter Summary ---
Author Organization [employer] Address [address] [facility] 7t [place] [address] Care Team Providers Care Charge Hand Name Role Phone Jameson Tang MD Primary Care Provider [phone] Encounter Details Date Type Department Care Team ([facility] st Contact Info) Description 12/22/2024 Orders Only [facility] CHC MED & PEDS [address] [place] [address] Jameson Tang MD [address] [place] [address] Social History Tobacco Use Types Packs/Day Years [...] CT PCR, Urine NOT DETECTED Not Detect. [facility] Comment:A not detected test result [...] NG PCR, Urine NOT DETECTED Not Detect. [facility] Comment:A not detected test result [...] URINE ORDERABLES Final Result Performing Organization Address [facility] Co de Phone Number [facility] [address] [place] [phone] * Urinalysis with Reflex to Microscopic (12/22/2024 10:46 AM EDT) Color Urine Yellow [facility] Appearance Urine Clear [facility] PH 7.0 5.0 - 9.0 [facility] Glucose Urine UA Negative Negative mg/dL [facility] Urine Blood Negative Negative [facility] Specific [place] - Urine 1.025 1.005 - 1.025 [facility] Urine Protein Negative Neg-Trace mg/dL [facility] Urine Ketones Negative Negative mg/dL [facility] Nitrite Urine Negative Negative [facility] Leukocyte Esterase Urine Negative Negative [facility] 12/22/2024 10:4 6 AM EDT 12/22/2024 2:21 PM EDT us Jameson Tang MD LAB URINE ORDERABLES Final Result Performing Organization Address [facility] Co de Phone Number [facility] [address] [place] [phone] * (ABNORMAL) Comprehensive Metabolic Panel, Fasting (12/22/2024 10:35 AM EDT) Sodium 142 135 - 145 mmol/L [facility] Potassium 3.7 3.3 - 5.1 mmol/L [facility] Chloride 109(H) 96 - 108 mmol/L [facility] Carbon Dioxide 28 22 - 29 mmol/L [facility] Anion Gap 9(L) 12 - 20 [facility] Urea Nitrogen (BUN) 14 9 - 16 mg/dL [facility] Creatinine, Serum 0.73 0.5 - 1.4 mg/dL [facility] Estimated Glomerular Filt Rate >60 [facility] Comment:Chronic Kidney Disea se: Estimated GFR < 60 mL/min/1.06l7Pvgric Kidney Disease: Estimated GFR < 15 mL/min/1.73m2 Glucose Fasting 89 60 - 99 mg/dL [facility] Calcium 8.8 8.4 - 10.2 mg/dL [facility] Bilirubin, Total 0.6 0.0 - 1.0 mg/dL [facility] Aspartate Amino Transferase 24 5 - 31 U/L [facility] Alanine Aminotransferase 14 0 - 31 U/L [facility] Total Protein 6.2(L) 6.5 - 8.0 g/dL [facility] Albumin Level 3.9 3.5 - 5.0 g/dL [facility] Alkaline Phosphatase 70 39 - 117 U/L [facility] 12/22/2024 10:3 5 AM EDT 12/22/2024 2:24 PM EDT us Jameson Tang MD LAB BLOOD ORDERABLES Final Result [facility] [address] [place] [phone] documented in this encounter Visit Diagnoses Not on filedocumented in this encounter Additional Health Concerns Assessment Noted Time PHQ-9 Depression Total Score: 15 025 2:14 PM EDT documented as of this encounter Care Teams Charge Hand Relationship Specialty Start Date End Date Jameson Tang MD [address] [place] [phone] PCP - General Internal Medicine 11/10/23 documented as of this encounter
[2025-03-18 14:10] VITALS: BP 132/60; PULSE 84; RESP 16; TEMP 36.6; O2SAT 98
== END 2025-03-18 14:10 | disposition home or self-care (01) ==
PROVIDERS: Emergency Provider Emergency Medicine Emergency Medical Services; PCP Internal Medicine
DX: H00.014 Hordeolum externum left upper eyelid (principal)
CPT/HCPCS: 99282